=== PATIENT | female | born 1940 | race Caucasian/White ===

== ENCOUNTER 2018-05-14 10:21 | Inpatient (IN) ==
[2018-05-14] MEDS ORDERED: Naloxone 0.4 MG/ML INJ IVP PRN (13:22)
[2018-05-14] MEDS ORDERED: Acetaminophen 325 MG TABLET PO PRN (13:22)
--- NOTE | 2018-05-14 13:28 | Internal Med History&Physical ---
Date of Encounter: 05/14/18 Time of Encounter: 13:10 Internal Medicine - H&P: HPI Chief complaint: shortness of breath, indigestion Admitted From: Hospital to Hospital Transfer History of present illness: Ms. Bueno is a 78 year old female patient with history of chronic myeloid leukemia in remission who is currently on nilotinib, hypertension, indigestion/ reflux esophagitis presented to the ER at [facility] with complaints of shortness of breath that has been going on for the past couple of days. She had been hospitalized one week back at the same facility with chest pain. Cardiac workup was negative. She was discharged on medications for reflux esophagitis. She was hospitalized at [facility] yesterday with Baljinder wong with [facility]. She was placed on Cardizem and IV heparin. She denies any chest pain at this time but she did have some chest discomfort radiating up to her throat previously. She denies any dizziness or lightheadedness. No fever or chills. She does drink a lot of water and she was asked to do this while taking nilotinib. She has no prior history of cardiac disease or atrial fibrillation. She also had a chest x-ray and CT scan that suggested presence of pleural effusion and pericardial effusion. As such she was transferred here for higher level of care. Past Med Surg Social Fam HX - Past Medical History Attestation: Yes The following information was validated with the patient. Source: patient Medical history: cancer (CML in remission), GERD, hypertension, other ( Peripheral vascular disease) - Social History Smoking Status: Never smoker Smokeless Tobacco Status: No Alcohol use: none Drug use: none - Additional Family History Additional family history: Family history reviewed and found to be noncontributory at this time. Internal Medicine - H&P: Meds Aspirin [Adult Low Dose Aspirin EC] 81 mg PO DAILY 01/27/16 [History] Cilostazol [Pletal] 100 mg PO BID 01/27/16 [History] Clopidogrel [Plavix] 75 mg PO DAILY 01/27/16 [History] Cyclobenzaprine [Flexeril] 10 mg PO PRN PRN 01/27/16 [History] Diltiazem HCl [Diltiazem 24Hr Cd] 240 mg PO DAILY 01/27/16 [History] Oxybutynin Chloride [Ditropan Xl] 10 mg PO DAILY 01/27/16 [History] Ramipril [Altace] 5 mg PO DAILY 01/27/16 [History] hydrOXYzine HCl [Hydroxyzine HCl] 25 mg PO DAILY 01/27/16 [History] Loratadine [Claritin] 10 mg PO DAILY #30 tablet 01/30/18 [Rx] Nilotinib HCl [Tasigna] 2 cap PO BID #120 capsule 01/30/18 [Rx] Zolpidem [Ambien] 5 mg PO HS PRN 30 Days #30 tablet 01/30/18 [Rx] Sucralfate [Carafate] 1 gm PO TID #90 tablet 03/18/18 [Rx] 3 Allergy/AdvReac Type Severity Reaction Status Date / Time Phenothiazines Allergy Itching Verified 01/30/18 13:45 promethazine Allergy Itching Verified 01/30/18 13:45 amantadine AdvReac Itching Verified 01/30/18 13:45 All Systems PM: A 10-system review of systems was performed and is negative for pertinent findings except as documented above in the HPI. - Constitutional Constitutional: no chills, no fever(s), no night sweats - EENT Eyes: no change in vision, no discharge, no pain, no photophobia Ears: no ear discharge, no ear pain, no tinnitus Nose, mouth and throat: no dysphagia, no nasal discharge, no neck pain, no sore throat - Cardiovascular Cardiovascular ROS IM: chest pain, dyspnea, dyspnea on exertion - Respiratory Respiratory: no cough, no dyspnea, no wheezing, no excessive phlegm production - Gastrointestinal Gastrointestinal: heartburn, no abdominal pain, no diarrhea, no hematemesis, no hematochezia, no melena, no nausea, no vomiting - Genitourinary Genitourinary: no change in urinary stream, no dysuria, no flank pain, no hematuria - Musculoskeletal Musculoskeletal ROS IM: no numbness, no tingling - Integumentary Integumentary IM: no rash, no unusual bruising - Neurological Neurological ROS: no confusion, no convulsions, no focal weakness, no numbness, no tingling, no tremor(s) - Hematologic/Lymphatic Hematologic/Lymphatic: no easy bruising - Constitutional Vitals: Temp Pulse Resp BP Pulse Ox 98.5 F 113 19 136/93 97 05/14/18 12:55 05/14/18 12:55 05/14/18 12:55 05/14/18 12:55 05/14/18 12:55 General appearance: Present: cooperative, A&O X 3, answers questions appropriately - Neck Neck exam general surgery: Present: supple, trachea midline. Absent: lymphadenopathy - Respiratory Respiratory exam: Present: CTAB. Absent: accessory muscle use, rales, rhonchi, wheezes - Cardiovascular Cardiovascular exam: Present: irregular rhythm, +S1, +S2, tachycardia. Absent: diastolic murmur, gallop, rubs, systolic murmur - GI/Abdominal GI/Abdominal exam: Present: normal bowel sounds, soft, no peritoneal signs. Absent: distended, tenderness - Extremities Exam Extremities exam: Present: warm, radial pulses palpable and symmetrical. Absent : calf tenderness, cyanotic, pedal edema - Neurological Exam Neurological exam: Present: CN II-XII intact, oriented X3, no focal deficits, strengths equal and symetr throughout. Absent: facial droop, speech deficit - Skin Skin exam: Present: dry, intact Internal Med - H&P Results - Labs Labs: WBC 26.2, hemoglobin 11.4, platelets 780, BUN 15, creatinine 0.95, troponins were negative. Urinalysis was also negative. - EKG Data -: EKG Interpreted by Myself - EKG Data EKG comments: 05/14/18 13:30 A. fib with [facility] - Assessment and plan (1) Atrial fibrillation Current Visit: Yes Status: Acute Assessment and plan: Patient presenting with atrial fibrillation with rapid ventricular response. Apparently this is new onset as patient reports no prior history of abnormal rhythm. She does appear to be on Cardizem at home. Patient was started on IV heparin for anticoagulation. Since her heart rate remains uncontrolled, we will treat with IV Cardizem. His heart rate less than 100. Her [id number] score is 4. Qualifiers: Atrial fibrillation type: unspecified Qualified Code(s): I48.91 - Unspecified atrial fibrillation (2) Pericardial effusion Current Visit: Yes Status: Suspected Assessment and plan: Per x-ray and CT imaging. We will get 2-D echocardiogram to assess size of effusion. Consult cardiology based on findings. (3) Reflux esophagitis Current Visit: Yes Status: Acute Assessment and plan: Will continue Carafate and place patient on Protonix. (4) Peripheral vascular disease Current Visit: Yes Status: Acute (5) Chest pain Current Visit: Yes Status: Acute Assessment and plan: Reported history of recent chest pain. Currently does not have any chest pain. Troponins were negative. We will continue to trend troponins. Could be due to reflux esophagitis. Qualifiers: Chest pain type: precordial pain Qualified Code(s): R07.2 - Precordial pain (6) DVT prophylaxis Current Visit: Yes Status: Acute Assessment and plan: On IV heparin (7) CML (chronic myelocytic leukemia) Current Visit: Yes Status: Chronic Assessment and plan: Continue nilotinib. <2 % risk for pericardial effusion and 4% risk for cardiac arrhythmia including atrial fibrillation for this drug. Consider discussing with heme/ Onc prior to discharge. - Time Spent With Patient Total time spent is greater than 50% in coordination of care (as documented) at patient's floor/unit and/or counseling patient:
[2018-05-14] MEDS ORDERED: *HR* Heparin 5,000 UNIT/ML VIAL IVP PRN ×2 (13:41)
[2018-05-14] MEDS ORDERED: *HR* Heparin 5,000 UNIT/ML VIAL IVP ONE (13:41)
[2018-05-14] MEDS ORDERED: Heparin 25,000 UNIT/500 ML D5W 25,000 UNIT/500 ML BAG IVC SCH (13:45)
[2018-05-14] MEDS ORDERED: Fluticasone Propionate Nasal 50 MCG/SPRAY BOTTLE NS PRN (15:57)
[2018-05-14] MEDS: NILOTINIB HCL 150 MG PO SCH (20:08)
[2018-05-15 02:00] LABS: Basophils # 0.1 K/mcL (0.0-0.2); Basophils % 0.4 %; Eosinophils # 0.2 K/mcL (0.0-0.6); Hematocrit 30.2 % (35.3-44.9); Immature Granulocytes % 3.6 % (0-4); Lymphocytes # 2.3 K/mcL (0.6-4.6); Lymphocytes % 10.8 %; Mean Corpuscular HGB Conc 33.1 g/dL (31.6-35.5); Mean Corpuscular Hemoglobin 28.7 pg (28.0-33.3); Mean Corpuscular Volume 86.5 fL (83.0-100.0); Mean Platelet Volume 9.5 fL (9.4-12.4); Monocytes # 2.5 K/mcL (0.0-1.3); Monocytes % 11.7 %; Neutrophils # 15.3 K/mcL (1.6-8.9); Nucleated Red Blood Cells 0.3 /100 WBC (0); Platelet Count 603 K/mcL (140-400); Red Blood Count 3.49 M/mcL (3.82-4.97); Red Cell Distribution Width 16.4 % (11.5-14.5); Segmented Neutrophils % 72.5 %
[2018-05-15 02:10] LABS: BUN/Creatinine Ratio 20 (6-26); Blood Urea Nitrogen 13 mg/dL (8-23); Calcium 8.1 mg/dL (8.6-10.3); Carbon Dioxide 23 mEq/L (23-29); Chloride 101 mEq/L (98-107); Glucose 154 mg/dL (70-105); Osmolality,Calculated 279 (280-300); Potassium 3.3 mEq/L (3.5-5.1); Sodium 133 mEq/L (136-145); eGFR For African Americans > 60 (> 60); eGFR For Non-African Americans > 60 (> 60)
[2018-05-15] MEDS ORDERED: Benzonatate 100 MG CAPSULE PO PRN (02:50)
--- NOTE | 2018-05-15 08:19 | Internal Med Progress Note ---
Date of Encounter: 05/15/18 Time of Encounter: 08:17 - Assessment and plan (1) Atrial fibrillation Current Visit: Yes Status: Acute Assessment and plan: Patient presenting with atrial fibrillation with rapid ventricular response. Apparently this is new onset as patient reports no prior history of abnormal rhythm. She does appear to be on Cardizem at home. Patient was started on IV heparin for anticoagulation. Since her heart rate remains uncontrolled, we will treat with IV Cardizem. His heart rate less than 100. Her [id number] score is 4. Qualifiers: Atrial fibrillation type: unspecified Qualified Code(s): I48.91 - Unspecified atrial fibrillation (2) Pericardial effusion Current Visit: Yes Status: Suspected Assessment and plan: Per x-ray and CT imaging. Echocardiogram results pending. Consult cardiology based on findings. (3) Reflux esophagitis Current Visit: Yes Status: Acute Assessment and plan: Reported history of recent chest pain. Currently does not have any chest pain. Troponins were negative. Could be due to reflux esophagitis. Will continue Carafate and place patient on Protonix. (4) CML (chronic myelocytic leukemia) Current Visit: Yes Status: Chronic Assessment and plan: Continue nilotinib. <2 % risk for pericardial effusion and 4% risk for cardiac arrhythmia including atrial fibrillation for this drug. Consider discussing with heme/ Onc prior to discharge. (5) Peripheral vascular disease Current Visit: Yes Status: Acute Assessment and plan: Continue home medications for this including Plavix, Pletal (6) DVT prophylaxis Current Visit: Yes Status: Acute Assessment and plan: On IV heparin - Time Spent With Patient Total time spent is greater than 50% in coordination of care (as documented) at patient's floor/unit and/or counseling patient: - Subjective Interval history: Patient seen and examined resting comfortably in bed. HR is 92 this AM - Constitutional Vitals: Temp Pulse Resp BP Pulse Ox 98.1 F 92 16 132/71 97 05/15/18 06:59 05/15/18 06:59 05/15/18 06:59 05/15/18 06:59 05/15/18 06:59 General appearance: Present: cooperative, A&O X 3, pleasant, no acute distress, answers questions appropriately - Head Head exam: Present: atraumatic, normocephalic - Eye Eye exam: Present: PERRL, conjuntiva pink, sclera anicteric Pupils: Present: PERRL - ENT ENT exam: Present: mucous membranes moist, normal oropharynx - Neck Neck exam general surgery: Present: supple, trachea midline. Absent: lymphadenopathy - Respiratory Respiratory exam: Present: CTAB. Absent: accessory muscle use, rales, rhonchi, wheezes - Cardiovascular Cardiovascular exam: Present: irregular rhythm, +S1, +S2. Absent: diastolic murmur, gallop, RRR, rubs, systolic murmur - GI/Abdominal GI/Abdominal exam: Present: normal bowel sounds, soft, no peritoneal signs. Absent: distended, tenderness - Extremities Exam Extremities exam: Present: warm, radial pulses palpable and symmetrical. Absent : calf tenderness, cyanotic, pedal edema - Back Exam Back exam: Present: normal inspection. Absent: paraspinal tenderness, tenderness - Neurological Exam Neurological exam: Present: CN II-XII intact, oriented X3, no focal deficits. Absent: pronater drift, facial droop, speech deficit - Psychiatric Psychiatric exam: Present: normal affect, normal mood - Skin Skin exam: Present: dry, intact, warm Internal Medicine: Result - Labs CBC & Chem 7: 05/15/18 01:33 05/15/18 01:33 Labs: Short CBC 05/15/18 Range/Units 01:33 WBC 21.2 H (4.3-11.1) K/mcL Hgb 10.0 L (11.5-15.4) g/dL Hct 30.2 L (35.3-44.9) % Plt Count 603 H (140-400) K/mcL Neutrophils # 15.3 H (1.6-8.9) K/mcL BMP 05/15/18 01:33 Sodium 133 L Potassium 3.3 L Chloride 101 Carbon Dioxide 23 BUN 13 Creatinine 0.66 Glucose 154 H Calcium 8.1 L - Pulse Oximetry Interpretation Digit-Finger Pulse Oximetry Readin (On RA) Consult Discharge Plan - Plan Referrals: Del Caceres DO [Primary Care Provider] -
[2018-05-15] MEDS ORDERED: Potassium Chloride Elixir 20 MEQ/15 ML UDC PO ONE (08:22)
[2018-05-15] MEDS ORDERED: Diltiazem CD (24hr) 240 MG CAPSULE PO SCH (09:00)
[2018-05-15] MEDS ORDERED: Loratadine 10 MG TABLET PO SCH (09:00)
[2018-05-15] MEDS ORDERED: Aspirin Enteric Coated 81 MG Tablet PO SCH (09:00)
[2018-05-15] MEDS ORDERED: Lisinopril 20 MG TABLET PO SCH (09:00)
[2018-05-15 11:06] VITALS: BP 128/76
[2018-05-15] MEDS: NILOTINIB HCL 150 MG PO SCH (11:11)
[2018-05-15] MEDS ORDERED: Apixaban 5 MG TABLET PO SCH (13:00)
--- NOTE | 2018-05-15 13:18 | Discharge Summary ---
<Jesus Stahl - Last Filed: 05/15/18 14:37> - NOTES TO OUTPATIENT PROVIDER Notes to Outpatient Provider: Patient with small to moderate pericardial effusion. Repeat echo in 1 week and follow up with cardiology. Patient was started on Eliquis for A-fib. Start Metoprolol and continue Cardizem PO. Stop Plavix and Pletal. Follow up with PCP, cardiology and vascular surgery. Date of Encounter: 05/15/18 Time of Encounter: 13:14 - Discharge Diagnosis (1) Atrial fibrillation Priority: Primary Status: Acute Assessment and Plan: Patient presenting with atrial fibrillation with rapid ventricular response. Apparently this is new onset as patient reports no prior history of abnormal rhythm. She is on Cardizem at home. Patient was started on IV heparin for anticoagulation. Echo revealed small to moderate pericardial effusion. Weaned off Cardizem drip. Heart rate remains uncontrolled, we will start Metprolol and continue Cardizem PO. Her heart rate less than 100. Her [id number] score is 4. Continue Aspirin and start Eliquis Qualifiers: Atrial fibrillation type: unspecified Qualified Code(s): I48.91 - Unspecified atrial fibrillation (2) Pericardial effusion Priority: Primary Status: Suspected Assessment and Plan: Per x-ray and CT imaging. Echocardiogram revealed small to moderate pericardial effusion, LVEF 60%, intermediate diastolic dysfunction. Case discussed with Gas Station Clerk, Dr. Bower, recommended outpatient cardiology follow up and repeat echo in 1 week. Will trial short course of Lasix. (3) Reflux esophagitis Priority: Secondary Status: Acute Assessment and Plan: Reported history of recent chest pain. Currently does not have any chest pain. Troponins were negative. Could be due to reflux esophagitis. Stopped PPI, Continue Zantac and Tums prn. Outpatient follow up. (4) CML (chronic myelocytic leukemia) Priority: Secondary Status: Chronic Assessment and Plan: Continue nilotinib. <2 % risk for pericardial effusion and 4% risk for cardiac arrhythmia including atrial fibrillation for this drug. (5) DVT prophylaxis Priority: Secondary Status: Acute Assessment and Plan: Continue Aspirin and Eliquis (6) Peripheral vascular disease Priority: Secondary Status: Acute Assessment and Plan: Case discussed with Vascular Surgeon, Dr. Luther. Discontinue home medications for this including Plavix, Pletal. Continue Aspirin and Eliquis Hospital course: Ms. Bueno is a 78 year old female patient with history of chronic myeloid leukemia in remission who is currently on nilotinib, hypertension, indigestion/ reflux esophagitis presented to the ER at [facility] with complaints of shortness of breath that has been going on for the past couple of days. She had been hospitalized one week back at the same facility with chest pain. Cardiac workup was negative. She was discharged on medications for reflux esophagitis. She was hospitalized at [facility] yesterday with Baljinder wong with [facility]. She was placed on Cardizem and IV heparin. She denies any chest pain at this time but she did have some chest discomfort radiating up to her throat previously. She denies any dizziness or lightheadedness. No fever or chills. She does drink a lot of water and she was asked to do this while taking nilotinib. She has no prior history of cardiac disease or atrial fibrillation. She also had a chest x-ray and CT scan that suggested presence of pleural effusion and pericardial effusion. As such she was transferred here for higher level of care. Apparently this is new onset as patient reports no prior history of abnormal rhythm. She is on Cardizem at home. Patient was started on IV heparin for anticoagulation. Echocardiogram revealed small to moderate pericardial effusion, LVEF 60%, intermediate diastolic dysfunction. Recommend outpatient cardiology follow up. Her heart rate less than 100. Weaned off Cardizem drip. Heart rate remains controlled, we will start Metoprolol and continue Cardizem PO. Her [id number] score is 4. Case discussed with Vascular Surgeon, Dr. Luther. Discontinue home medications for this including Plavix, Pletal. Continue Aspirin and start Eliquis. Case discussed with Gas Station Clerk, Dr. Bower, recommended outpatient cardiology follow up and repeat echo in 1 week Discharge discussed with: patient, family - Time Spent with Patient Total time spent providing and/or coordinating discharge services: - Discharge Medications Prescriptions: Calcium Carbonate [Tums] 1,000 mg PO Q4HR PRN #60 tab.chew PRN Reason: Reflux Apixaban [Eliquis] 5 mg PO BID #60 tablet Furosemide [Lasix] 40 mg PO DAILY #14 tab Metoprolol [Lopressor] 25 mg PO BID #60 tablet Ranitidine HCl [Zantac 75] 75 mg PO DAILY #30 tablet Home Medications: Cyclobenzaprine [Flexeril] 10 mg PO DAILY 01/27/16 [History] Diltiazem HCl [Diltiazem 24Hr Cd] 240 mg PO DAILY 01/27/16 [History] Loratadine [Claritin] 10 mg PO DAILY #30 tablet 01/30/18 [Rx] Nilotinib HCl [Tasigna] 2 cap PO BID #120 capsule 01/30/18 [Rx] Acetaminophen [Tylenol] 500 mg PO Q6HR PRN 05/14/18 [History] Aspirin Enteric Coated [Aspirin EC] 81 mg PO DAILY 05/14/18 [History] Diclofenac Sodium [Voltaren] 50 mg PO BID PRN 05/14/18 [History] Docusate [Colace] 100 mg PO DAILY 05/14/18 [History] Doxycycline Hyclate 100 mg PO BID 05/14/18 [History] Fluticasone Propionate Nasal [Flonase] 1 spray NS DAILY PRN 05/14/18 [History] MethylPREDNISolone [MethylPREDNISolone Dose Pack] 4 mg PO AD 05/14/18 [History] Pravastatin Sodium [Pravachol] 40 mg PO HS 05/14/18 [History] Ramipril [Altace] 5 mg PO DAILY 05/14/18 [History] Ranitidine HCl [Heartburn Relief] 150 mg PO DAILY 05/14/18 [History] Apixaban [Eliquis] 5 mg PO BID #60 tablet 05/15/18 [Rx] Calcium Carbonate [Tums] 1,000 mg PO Q4HR PRN #60 tab.chew 05/15/18 [Rx] Furosemide [Lasix] 40 mg PO DAILY #14 tab 05/15/18 [Rx] Metoprolol [Lopressor] 25 mg PO BID #60 tablet 05/15/18 [Rx] Ranitidine HCl [Zantac 75] 75 mg PO DAILY #30 tablet 05/15/18 [Rx] Allergies/Adverse Reactions: 3 Allergy/AdvReac Type Severity Reaction Status Date / Time Phenothiazines Allergy Itching Verified 01/30/18 13:45 promethazine Allergy Itching Verified 01/30/18 13:45 amantadine AdvReac Itching Verified 01/30/18 13:45 Date of admission: 05/14/18 12:47 Primary care physician: Del Caceres, Discharging clinician: Jesus Stahl Anticipated date of discharge: 05/15/18 - Constitutional Vitals: Temp Pulse Resp BP Pulse Ox 98.4 F 84 16 128/76 97 05/15/18 11:05 05/15/18 11:05 05/15/18 11:05 05/15/18 11:05 05/15/18 11:05 General appearance: Present: cooperative, A&O X 3, pleasant, no acute distress, answers questions appropriately - Head Head exam: Present: atraumatic, normocephalic - Eye Eye exam: Present: PERRL, conjuntiva pink, sclera anicteric Pupils: Present: PERRL - ENT ENT exam: Present: mucous membranes moist, normal oropharynx - Neck Neck exam general surgery: Present: supple, trachea midline. Absent: lymphadenopathy - Respiratory Respiratory exam: Present: CTAB. Absent: accessory muscle use, rales, rhonchi, wheezes - Cardiovascular Cardiovascular exam: Present: irregular rhythm, +S1, +S2. Absent: diastolic murmur, gallop, RRR, rubs, systolic murmur - GI/Abdominal GI/Abdominal exam: Present: normal bowel sounds, soft, no peritoneal signs. Absent: distended, tenderness - Extremities Exam Extremities exam: Present: warm, radial pulses palpable and symmetrical. Absent : calf tenderness, cyanotic, pedal edema Additional comments: walks with walker - Back Exam Back exam: Present: normal inspection. Absent: paraspinal tenderness, tenderness - Neurological Exam Neurological exam: Present: CN II-XII intact, oriented X3, no focal deficits. Absent: pronater drift, facial droop, speech deficit - Psychiatric Psychiatric exam: Present: normal affect, normal mood - Skin Skin exam: Present: dry, intact, warm - Patient Status Disposition: Home, Self-Care Condition: Good Functional capacity at discharge: uses cane/walker Overall status at discharge: patient is back to baseline - Ambulatory Orders Ambulatory Orders: EV echocardiogram Time Frame: 1 Week, Location: [facility] - Discharge Instructions Instructions: Metoprolol (By mouth), Furosemide (By mouth), Ranitidine (By mouth), Antacid, Calcium and Magnesium (By mouth), Apixaban (By mouth), Atrial Fibrillation (DC), Chest Pain (DC), Peripheral Vascular Disorders (DC), Chronic Myeloid Leukemia (DC), Chronic Myeloid Leukemia, [employer] (GEN) Follow Up With: Del Caceres, DO [Primary Care Provider] - - Diet and Activity Activity: increase activity as tolerated, resume usual activities as tolerated Diet: regular diet <Baldemar Brown - Last Filed: 05/15/18 16:46> Date of Encounter: 05/15/18 - Discharge Diagnosis (1) DVT prophylaxis Status: Acute (2) CML (chronic myelocytic leukemia) Status: Chronic (3) Atrial fibrillation Status: Acute Qualifiers: Atrial fibrillation type: unspecified Qualified Code(s): I48.91 - Unspecified atrial fibrillation (4) Pericardial effusion Status: Suspected (5) Reflux esophagitis Status: Acute (6) Peripheral vascular disease Status: Acute Hospital course: Ms. Bueno is a 78 year old female - Time Spent with Patient Total time spent providing and/or coordinating discharge services: Date of admission: 05/14/18 12:47 Primary care physician: Del Caceres, - Constitutional Vitals: Temp Pulse Resp BP Pulse Ox 98.4 F 84 16 128/76 97 05/15/18 11:05 05/15/18 11:05 05/15/18 11:05 05/15/18 11:05 05/15/18 11:05 - Attending Attestation Independent interview and examine this patient. I agreed with the findings, assessment, and plan of Dr. Stahl, internal medicine resident. I was present during this evaluation and discussion with the patient and her family. Old with a combination of Cardizem and metoprolol. She was started on Eliquis for stroke prevention. Patient otherwise remained hematologically stable. She was counseled on blood thinners and are associated risks of bleeding. We did stop her Plavix and Pletal but continue her aspirin after discussion with vascular surgery. The significance of her pericardial effusion is unclear. Case was discussed with cardiology. She will follow up with them, as well as have a repeat echo in one week. She otherwise is doing well and deemed stable for discharge. 36 minutes spent on discharge and coordination of care. Patient was originally admitted with the intention of having at least a 2 night stay, however she improved rapidly with our therapy (much quicker than expected) , achieving excellent rate control and was asymptomatic on hospital day #1.
== END 2018-05-15 15:30 | disposition home or self-care (01) | DRG 309 ==
LOC: 2NENU 12:47
PROVIDERS: ADMIT Internal Medicine; ATTEND Internal Medicine

== ENCOUNTER 2019-07-14 23:12 | Inpatient (IN) ==
--- NOTE | 2019-07-15 02:26 | Internal Med History&Physical ---
<Barbara Gibbs - Last Filed: 07/15/19 02:51> Date of Encounter: 07/15/19 Time of Encounter: 02:26 Internal Medicine - H&P: HPI Chief complaint: Abdominal pain Admitted From: Hospital to Hospital Transfer Plans for Post Hospital Care: Home History of present illness: Ms. Bueno is a 79 year old female with past medical history of CML, atrial fibrillation on anticoagulation, CAD who presented to [facility] as a transfer from [facility] for surgical evaluation due to CT abdomen findings concerning for cecal volvulus. The patient initially presented to the ED complaining of abdominal pain that has worsened for approximately 4 days that started on Sunday. She has had severe nausea and vomiting. She chronically has constipation and has had intermittent abdominal pain for the past few months. She has been taking laxatives. She went to her PCP on Sunday whom prescribed her Linzess for which she took for 3 days. Additionally she has had constipation, bloating, belching. Her last bowel movement was Sunday morning which was loose and runny due to her taking Linzess. She denied fever, chills, shortness of breath, flatulence. She has had colonoscopies in the past which were all normal. She has a family history of father having colon cancer diagnosed in his 50s. She denied smoking, alcohol, drug use. She is the full code. At [facility] initial labs were: WBC 20.5, lactic acid 1.7, hemoglobin 13.3, platelets 494, AST 13, ALT 31, alkaline phosphatase 90, total bilirubin 0.5, amylase 28. - CT abdomen/pelvis demonstrated findings ever concerning for cecal volvulus. There is no evidence of ischemic bowel. The patient was admitted to the ICU and the general surgeon Dr. Jacobsen evaluated the patient and recommended exploratory laparotomy. After review of the CT abdomen/pelvis images it is unclear whether or not the volvulus is cecal or sigmoid in nature. The patient's daughter was present at bedside and agreed. Past Med Surg Social Fam HX - Past Medical History Attestation: Yes The following information was validated with the patient. Source: patient Medical history: atrial fibrillation, cancer (CML in remission), GERD, hypertension, other (Peripheral vascular disease) Additional medical history: CML, PVD Psychiatric history: no psych history - Past Surgical History Surgical History: cholecystectomy Additional surgical history: back surgery, stent in leg - Social History Smoking Status: Never smoker Smokeless Tobacco Status: No Alcohol use: none Drug use: none - Family History Mother Living Status: Hx Family Endocrine Disorder: Yes (DM) Hx Family Neuromuscular Disorders: Yes (CVA) Father Living Status: Hx Family Cancer: Yes Internal Medicine - H&P: Meds Diltiazem HCl [Diltiazem 24Hr Cd] 240 mg PO DAILY 01/27/16 [History] Acetaminophen [Tylenol] 500 mg PO Q6HR PRN 05/14/18 [History] Pravastatin Sodium [Pravachol] 40 mg PO HS 05/14/18 [History] Metoprolol [Lopressor] 25 mg PO BID 06/03/18 [History] Rivaroxaban [Xarelto] 20 mg PO DAILY 06/03/18 [History] Ferrous Sulfate [Iron] 325 mg PO DAILY #30 tablet 06/13/18 [Rx] Cilostazol [Pletal] 100 mg PO BID 01/29/19 [History] Cetirizine HCl [Zyrtec] 10 mg PO 07/15/19 [History] Cyclobenzaprine [Flexeril] 10 mg PO TID 07/15/19 [History] traZODone [TraZODone] 100 mg PO HS 07/15/19 [History] Allergy/AdvReac Type Severity Reaction Status Date / Time Phenothiazines Allergy Itching Verified 08/14/18 15:22 promethazine Allergy Itching Verified 08/14/18 15:22 amantadine AdvReac Itching Verified 08/14/18 15:22 All Systems PM: A 10-system review of systems was performed and is negative for pertinent findings except as documented above in the HPI. - Constitutional Constitutional: no chills, no fever(s) - EENT Eyes: no change in vision - Cardiovascular Cardiovascular ROS IM: no chest pain, no edema - Respiratory Respiratory: no cough, no dyspnea - Gastrointestinal Gastrointestinal: abdominal pain, belching, bloating, change in bowel habits, constipation, nausea - Genitourinary Genitourinary: no dysuria - Musculoskeletal Musculoskeletal ROS IM: no muscle weakness, no myalgias - Integumentary Integumentary IM: no erythema, no rash - Neurological Neurological ROS: no dizziness, no headache(s) - Endocrine Endocrine IM: no fatigue, no flushing - Constitutional Exam: Gen.: Vitals noted. No acute distress. AAOx3 HEENT: oropharynx clear, Normocephalic, atraumatic Cardiac: RRR, no murmur, +S1/S2 Pulmonary: CTA bilaterally, no wheezes, rales or rhonchi, equal chest expansion Abdomen: soft, distended, nontender, no bowel sounds, no guarding MSK: ROM intact, no joint swelling noted Extremities: no BLE edema, nontender calf, no cyanosis or clubbing Neuro: A&Ox3, moves all extremities, no focal deficits Psych: Appropriate mood and behavior - Assessment and Plan (1) Atrial fibrillation Current Visit: No Status: Chronic Assessment and plan: Patient is known history of atrial fibrillation for which she is on anticoagulation with Xarelto and rate controlled with diltiazem and metoprolol. -Heart rate is controlled -holding Xarelto and metoprolol is patient is going to OR. May be restarted later -will continue diltiazem after patient returns from the OR Qualifiers: Atrial fibrillation type: paroxysmal Qualified Code(s): I48.0 - Paroxysmal atrial fibrillation (2) CML (chronic myelocytic leukemia) Current Visit: No Status: Chronic Assessment and plan: She has known history of CML for which she was completed treatment (3) Peripheral vascular disease Current Visit: No Status: Chronic Assessment and plan: Patient is known history of peripheral vascular disease for which she has a stent. She takes cilostazol and pravastatin. -Will hold cilostazol as patient is going to OR (4) DVT prophylaxis Current Visit: No Status: Acute Assessment and plan: EPCD (5) Volvulus of colon Current Visit: Yes Status: Acute Assessment and plan: Volvulus of the colon - After review of the CT abdomen/pelvis images it is unclear whether or not the volvulus is cecal or sigmoid in nature. It is most likely cecal. - Patient has had abdominal pain and constipation for a few months now which has worsened over the past 4 days with severe nausea and vomiting. She has been treating with laxatives. Last bowel movement was on Sunday. She denies flatus. - Afebrile, hemodynamically stable - WBC 20.5 - lactic acid 1.7 - CT abdomen/pelvis demonstrated findings ever concerning for cecal volvulus. There is no evidence of ischemic bowel. - On abdominal examination the patient is distended, nontender, no guarding, no bowel sounds. plan: - The patient was admitted to the ICU and the general surgeon Dr. Jacobsen evaluated the patient and recommended exploratory laparotomy this morning - continue sublingual oxycodone PRN pain - ordered cefoxitin 2g q8h per Dr. Jacobsen request - ordered type and screen, and 2 units PRBC - continue NG tube - NPO - continue serial abdominal exam - Time Spent With Patient Total time spent is greater than 50% in coordination of care (as documented) at patient's floor/unit and/or counseling patient: <Rizwan Paul - Last Filed: 07/15/19 07:03> Date of Encounter: 07/15/19 Internal Medicine - H&P: HPI History of present illness: Ms. Bueno is a 79 year old female All Systems PM: A 10-system review of systems was performed and is negative for pertinent findings except as documented above in the HPI. - Constitutional Vitals: Temp Pulse Resp BP Pulse Ox 98.9 F 85 20 184/89 100 07/15/19 02:00 07/15/19 06:00 07/15/19 06:00 07/15/19 06:00 07/15/19 06:00 Internal Med - H&P Results - Labs CBC & Chem 7: 07/15/19 03:17 07/15/19 03:17 Labs: Short CBC 07/15/19 Range/Units 03:17 WBC 16.9 H (4.3-11.1) K/mcL Hgb 11.8 (11.5-15.4) g/dL Hct 35.9 (35.3-44.9) % Plt Count 467 H (140-400) K/mcL Neutrophils # 12.7 H (1.6-8.9) K/mcL BMP 07/15/19 03:17 Sodium 140 Potassium 3.2 L Chloride 102 Carbon Dioxide 26 BUN 7 L Creatinine 0.71 Glucose 114 H Calcium 8.5 L - Assessment and Plan (1) DVT prophylaxis Current Visit: No Status: Acute (2) CML (chronic myelocytic leukemia) Current Visit: No Status: Chronic (3) Atrial fibrillation Current Visit: No Status: Chronic Qualifiers: Atrial fibrillation type: paroxysmal Qualified Code(s): I48.0 - Paroxysmal atrial fibrillation (4) Peripheral vascular disease Current Visit: No Status: Chronic (5) Volvulus of colon Current Visit: Yes Status: Acute - Time Spent With Patient Total time spent is greater than 50% in coordination of care (as documented) at patient's floor/unit and/or counseling patient: - Attending Attestation I saw and evaluated the patient. I reviewed the residents note, performed my own physical examination and agree with findings and plan as documented in the residents note. Patient seen and examined on 07/15/19. Patient presented with abdominal pain and distension, found to have cecal volvulus. Patient was taken to the OR for emergent abdominal surgery with Dr. Jacobsen. Appreciate help. Patient admitted to ICU, will continue ICU cares post-op.
[2019-07-15] MEDS ORDERED: Naloxone 0.4 MG/ML INJ IVP PRN (02:27)
[2019-07-15] MEDS ORDERED: Ondansetron 4 MG/2 ML VIAL IVP PRN (02:30)
--- NOTE | 2019-07-15 02:32 | AcuteCare Surgery Consult Note ---
Date of Encounter: 07/15/19 Time of Encounter: 20:00 Assessment and Plan (1) Volvulus of colon Current Visit: Yes Status: Acute The patient has severe volvulus causing obstruction. I have recommended exploratory laparotomy with resection or decompression volvulus. She understands there is risk of ileostomy or colostomy. History of Present Illness Consult date: 07/15/19 Reason for consult: other (Nausea and vomiting) History of present illness: The patient is a 79-year-old female treated for chronic myelogenous leukemia with recent admission to the hospital with what appeared to be congestive heart failure and atrial fibrillation. She has been stable at home but has been experiencing increasing problems with bowel movements for many months. She nilson es a chronic laxative. She presented to the emergency department earlier this evening with severe nausea and vomiting. A CAT scan demonstrated a likely volvulus. The patient was transferred to [place] for further evaluation and possible surgical care. I personally reviewed the CAT scan images of the abdomen. 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 I cannot identify whether this is cecal or sigmoid in nature. I favor cecal volvulus. I shared this information with the patient. The abdomen is soft and nontender there were no peritoneal signs and no rebound tenderness. She is progressively distended consistent with closed loop obstruction. I recommended exploratory laparotomy and resection of the volvulus. We discussed the possibility of colostomy or ileostomy. Past Med Surg Social Fam HX - Past Medical History Medical history: cancer (CML in remission), GERD, hypertension, other (Peripheral vascular disease) Additional medical history: CML, PVD Psychiatric history: no psych history - Past Surgical History Surgical History: cholecystectomy Additional surgical history: back surgery, stent in leg - Social History Smoking Status: Never smoker Smokeless Tobacco Status: No Alcohol use: none Drug use: none - Family History Mother Living Status: Hx Family Endocrine Disorder: Yes (DM) Hx Family Neuromuscular Disorders: Yes (CVA) Father Living Status: Hx Family Cancer: Yes Medications and Allergies Diltiazem HCl [Diltiazem 24Hr Cd] 240 mg PO DAILY 01/27/16 [History] Acetaminophen [Tylenol] 500 mg PO Q6HR PRN 05/14/18 [History] Pravastatin Sodium [Pravachol] 40 mg PO HS 05/14/18 [History] Metoprolol [Lopressor] 25 mg PO BID 06/03/18 [History] Rivaroxaban [Xarelto] 20 mg PO DAILY 06/03/18 [History] Ferrous Sulfate [Iron] 325 mg PO DAILY #30 tablet 06/13/18 [Rx] Cilostazol [Pletal] 100 mg PO BID 01/29/19 [History] Cetirizine HCl [Zyrtec] 10 mg PO 07/15/19 [History] Cyclobenzaprine [Flexeril] 10 mg PO TID 07/15/19 [History] traZODone [TraZODone] 100 mg PO HS 07/15/19 [History] Allergy/AdvReac Type Severity Reaction Status Date / Time Phenothiazines Allergy Itching Verified 08/14/18 15:22 promethazine Allergy Itching Verified 08/14/18 15:22 amantadine AdvReac Itching Verified 08/14/18 15:22 Review of Systems All systems PM: The remainder of the systems were reviewed and are negative General Surgery Exam - General physical appearance well developed, well nourished, moderate distress - Neck no masses, no bruits, trachea midline, no lymphadectomy, no venous distension - Respiratory normal expansion, normal respiratory effort, clear to auscultation - Cardiovascular Cardiovascular exam: Present: RRR, no murmurs/rubs/gallops - Abdomen Abdomen general surgery: Present: distended (No bowel sounds. She is distended and tympanic. No guarding or rebound) - Integumentary Integumentary general surgery: Present: warm and dry, no abnormal pigmentation - Neurologic Present: CN 2-12 grossly intact, normal coordination, normal sensation - Psychiatric Psychiatric general surgery: Present: appropriate, oriented to person, oriented to place, oriented to time, speech is normal, memory intact Results - Labs All other labs normal. - Imaging CT scan - abdomen: image reviewed (I personally reviewed the CAT scan of the abdomen. Findings are consistent with large bowel volvulus. I favor cecal volvulus from the images, however, sigmoid volvulus is a possibility) Consult Discharge Plan - Plan Referrals: NONE,PCP [Primary Care Provider] -
--- NOTE | 2019-07-15 02:55 | Anesthesia Evaluation PreOp ---
Date of Encounter: 07/15/19 Time of Encounter: 03:00 - Past History Planned Operation: Exploratory Laparotomy/Repair Cecal Volvulus Cardiac History: HTN, Hyperlipidemia, Arrhythmia (AFib on cardizem), Other (PVD has stent LE and Xarelto) Pulmonary History: Denies Any Significant HX CARBON DIOXIDE OPERATOR History: Denies Any Significant HX Other Medical History: GERD, Other (CML on remission) Anesthesia History: No Prior Anesthetic Complications Alcohol Use: none Drug use: none Medications and Allergies Diltiazem HCl [Diltiazem 24Hr Cd] 240 mg PO DAILY 01/27/16 [History] Acetaminophen [Tylenol] 500 mg PO Q6HR PRN 05/14/18 [History] Pravastatin Sodium [Pravachol] 40 mg PO HS 05/14/18 [History] Metoprolol [Lopressor] 25 mg PO BID 06/03/18 [History] Rivaroxaban [Xarelto] 20 mg PO DAILY 06/03/18 [History] Ferrous Sulfate [Iron] 325 mg PO DAILY #30 tablet 06/13/18 [Rx] Cilostazol [Pletal] 100 mg PO BID 01/29/19 [History] Cetirizine HCl [Zyrtec] 10 mg PO 07/15/19 [History] Cyclobenzaprine [Flexeril] 10 mg PO TID 07/15/19 [History] traZODone [TraZODone] 100 mg PO HS 07/15/19 [History] Allergy/AdvReac Type Severity Reaction Status Date / Time Phenothiazines Allergy Itching Verified 08/14/18 15:22 promethazine Allergy Itching Verified 08/14/18 15:22 amantadine AdvReac Itching Verified 08/14/18 15:22 - Meds/Allergy Pre-op Review Medications Reviewed: Yes Allergies Reviewed: Yes Beta Blockers on Current Med List: No Anesthesia Results - Labs Laboratory Tests 01/29/19 01/29/19 15:32 15:32 Hgb 12.5 Hct 37.5 Plt Count 428 H Sodium 138 Potassium 3.3 L BUN 10 Creatinine 0.85 AST 9 L ALT 8 Alkaline Phosphatase 73 Albumin 4.4 - Imaging EKG: report reviewed (SR) Additional studies: ECHO EF 60%, no valvular dysfunction Anesthesia Exam Vital Signs/O2 Sat/Glucose, Most Current Temp Pulse Resp BP Pulse Ox 07/15/19 02:00 98.9 F 95 20 169/85 94 Height: 5'4 Weight: 149 lbs NPO (# of Hours): MN Pain Scale: 0 - HEENT Pupil (Motor): Pupils equal, EOMI Mallampati: II Oral Opening: Greater than 3 - CARBON DIOXIDE OPERATOR LOC: Oriented CARBON DIOXIDE OPERATOR Motor: Normal RUE, Normal LUE, Normal RLE, Normal LLE, Normal Face CARBON DIOXIDE OPERATOR Sensory: Normal: RUE, LUE, RLE, LLE, Face - Cardiac Rhythm: Regular Murmur: None JVD: No Carotid Bruit: No - Pulmonary Breath Sounds: bilateral Clear Respiratory Effort: Symmetrical Anesthesia Assess/Plan ASA Score: 3 Level of consciousness: Cooperative, Oriented Anesthetic Plan: General Regional Nerve Block Plan: Other (TAP Block) Autologous Blood: No Monitoring Plan: Standard Monitors Recovery Plan: ICU (Discussed GA, possible TAP Block, agrees to proceed)
[2019-07-15] MEDS ORDERED: CefOXitin 1,000 MG VIAL ONE (03:03)
[2019-07-15] MEDS ORDERED: Acetaminophen IV 1,000 MG/100 ML INFUS..BTL ONE (03:12)
[2019-07-15] MEDS ORDERED: Famotidine 20 MG/2 ML VIAL ONE (03:13)
[2019-07-15] MEDS ORDERED: NiCARdipine 2.5 MG/10 ML Syringe IVPB ONE (03:13)
[2019-07-15] MEDS ORDERED: CefOXitin 2,000 MG VIAL ONE (03:16)
[2019-07-15] MEDS ORDERED: *HR* FentaNYL (PF) 100 MCG/2 ML VIAL ONE (03:16)
[2019-07-15] MEDS ORDERED: *HR* Propofol 200 MG/20 ML VIAL IVP ONE (03:16)
[2019-07-15] MEDS ORDERED: *HR* Rocuronium Bromide 50 MG/5 ML VIAL ONE (03:17)
[2019-07-15] MEDS ORDERED: Lidocaine -MPF 2% 2 ML VIAL ONE (03:17)
[2019-07-15] MEDS ORDERED: Ondansetron 4 MG/2 ML VIAL ONE ×2 (03:17→05:25)
[2019-07-15 03:30] LABS: White Blood Count 16.9 K/mcL (4.3-11.1)
[2019-07-15 03:31] LABS: Basophils % 0.2 %; Eosinophils # 0.1 K/mcL (0.0-0.6); Eosinophils % 0.3 %; Hematocrit 35.9 % (35.3-44.9); Hemoglobin 11.8 g/dL (11.5-15.4); Immature Granulocytes % 0.8 % (0-4); Lymphocytes # 2.4 K/mcL (0.6-4.6); Lymphocytes % 14.2 %; Mean Corpuscular HGB Conc 32.9 g/dL (31.6-35.5); Mean Corpuscular Hemoglobin 30.5 pg (28.0-33.3); Mean Corpuscular Volume 92.8 fL (83.0-100.0); Mean Platelet Volume 9.5 fL (9.4-12.4); Monocytes # 1.6 K/mcL (0.0-1.3); Monocytes % 9.5 %; Neutrophils # 12.7 K/mcL (1.6-8.9); Platelet Count 467 K/mcL (140-400); Red Blood Count 3.87 M/mcL (3.82-4.97); Red Cell Distribution Width 17.2 % (11.5-14.5)
[2019-07-15] MEDS ORDERED: *HR* PHENYLEPHRINE 1,000 MCG/10 ML SYRINGE IVP ONE (03:43)
[2019-07-15 03:56] LABS: BUN/Creatinine Ratio 10 (6-26); Blood Urea Nitrogen 7 mg/dL (8-23); Calcium 8.5 mg/dL (8.6-10.3); Carbon Dioxide 26 mEq/L (23-29); Chloride 102 mEq/L (98-107); Glucose 114 mg/dL (70-105); Osmolality,Calculated 289 (280-300); Potassium 3.2 mEq/L (3.5-5.1); Sodium 140 mEq/L (136-145); eGFR For African Americans > 60 (> 60); eGFR For Non-African Americans > 60 (> 60)
[2019-07-15] MEDS ORDERED: Dexamethasone 4 MG/ML VIAL ONE (04:07)
--- NOTE | 2019-07-15 05:06 | Operative Note ---
Date of procedure: 07/15/19 Pre-op diagnosis: Volvulus of the colon Post-op diagnosis: other (Cecal volvulus with obstruction) Procedure: Right hemicolectomy Anesthesia: BERNARD Surgeon: Ross Jacobsen Was there an pharmacy technician assistant present: No Estimated blood loss (cc): 25 Specimen: Right hemicolectomy Condition: stable Disposition: ICU Procedure in Detail: After informed consent the patient was taken major operative suite placed in supine position and given adequate general endotracheal anesthesia. The abdomen was prepped and draped in sterile fashion utilizing ChloraPrep and standard draping techniques. Timeout was taken and patient was identified. Made a vertical midline incision and immediately encountered a massively dilated portion of bowel. I quickly identified the bowel as cecum and right colon. The patient had what appeared to be lads bands crossing just below the hepatic flexure and a completely mobile cecum. There were adhesions to the distal small bowel down to the pelvis that acted as a point of rotation. The cecum was in the shape of an [place]. I divided the distal ileum with CHIVO. The mesentery to the right colon was divided between clamps and hemostatic ligatures. I lysed the adhesions that were essentially lads bands. This gave full mobility of the hepatic flexure and at this level as were would place the anastomosis. The colon was divided at this level with CHIVO. The specimen was passed off the field. There was no spillage. Using a standard dirty technique, callus re-used to isolate the distal small bowel and segment of the colon for anastomosis. I opened the 2 ends the bowel and used CHIVO to create an antimesenteric anastomosis. The resulting enterotomy was closed with a TA 60. There was no spillage. I circumferentially reinforced with seromuscular 3-0 silk stitches in this gave an excellent technical result the anastomosis. I closed the mesenteric opening with interrupted [id number] 2-0 silk. The abdomen was irrigated with copious amounts of antibiotic containing solution. The midline was closed with looped 0 PDS. Skin was closed with interrupted 2-0 Vicryl stitches and skin clips. The patient tolerated the procedure very well
[2019-07-15] MEDS ORDERED: 0.9 % Sodium Chloride 1,000 ML ONE (05:25)
[2019-07-15] MEDS ORDERED: *HR* Heparin 5,000 UNIT/ML VIAL ONE (05:25)
--- NOTE | 2019-07-15 05:35 | Anesthesia Evaluation Post Op ---
Date of Encounter: 07/15/19 Time of Encounter: 05:30 - Vital Signs Vital Signs: Vital Signs/O2 Sat/Glucose, Most Current Temp Pulse Resp BP Pulse Ox 07/15/19 05:00 87 20 174/86 100 07/15/19 03:00 84 18 144/92 95 07/15/19 02:00 98.9 F 95 20 169/85 94 - Lungs Lungs: Clear Ascult./Percussion - Airway Airway: Non-obstructed - Cardiovascular Regular Rate - Mental Status Mental Status: Asleep with brisk response to light stimulation - Pain Pain Scale: 0 - Nausea Vomiting Nausea Vomiting: Not Present - Hydration Hydration: NPO - Discharge PostOp Status: Transfer Patient to floor (To ICU...did not perform TAP Block due to Xarelto taken yesterday)
[2019-07-15] MEDS: *HR* Heparin 5,000 UNIT/ML VIAL SQ SCH ×2 (05:39→18:33)
[2019-07-15] MEDS: 0.9 % Sodium Chloride 1,000 ML IVC SCH ×2 (05:39→18:25)
[2019-07-15] MEDS: Ondansetron 4 MG/2 ML VIAL IVP PRN ×2 (05:40→14:52)
[2019-07-15] MEDS ORDERED: *HR* Heparin 5,000 UNIT/ML VIAL SQ SCH (06:00)
--- NOTE | 2019-07-15 07:53 | Event Note ---
Date of Encounter: 07/15/19 Time of Encounter: 07:51 Patient seen and examined this morning at bedside. Admitted overnight for cecal volvulus. Status post right hemicolectomy. Currently has an NGT. Okay to transfer to telemetry floor by afternoon if hemodynamically stable. Resume metoprolol IV for rate control. If difficult to control will consider cardizem drip. Xarelto held given surgery. We will resume when okay with surgery in the next few days. Currently nothing by mouth until bowel function resumes. We will give 40 meq potassium IV. Leukocytosis and thrombocytosis likely reactive. Monitor for now.
[2019-07-15] MEDS ORDERED: cefOXitin 2,000 MG in Water for inj. (sterile) 20 ML IVP SCH (08:00)
--- NOTE | 2019-07-15 08:06 | AcuteCareSurgery Progress Note ---
Date of Encounter: 07/15/19 Time of Encounter: 07:15 - Assessment and Plan (1) Cecal volvulus Current Visit: Yes Status: Acute resolved s/p ex lap with right hemicolectomy. Maintain NGT until increased bowel function. Pt is stable post-op and may be transferred to surgical floor when OK with primary service. (2) S/P right hemicolectomy Current Visit: Yes Status: Acute POD#0 (3) Atrial fibrillation Current Visit: No Status: Chronic NSR. Anticoagulation is on hold post-op. Qualifiers: Atrial fibrillation type: paroxysmal Qualified Code(s): I48.0 - Paroxysmal atrial fibrillation (4) Peripheral vascular disease Current Visit: No Status: Chronic Subjective Patient reports: no new complaints, feels better, pain is less, no flatus, no bowel movement, afebrile Narrative: POD#0 ex lap and right hemicolectomy for obstructing cecal volvulus. Objective Vital Signs - Last 8 Hours Temp Pulse Resp BP Pulse Ox 07/15/19 07:21 98.1 F 07/15/19 07:00 98 20 169/76 100 07/15/19 06:00 85 20 184/89 100 07/15/19 05:00 87 20 174/86 100 07/15/19 03:00 84 18 144/92 95 07/15/19 02:00 98.9 F 95 20 169/85 94 Intake and Output 07/14/19 07/15/19 07/15/19 23:59 07:59 15:59 Output Total 925 / 925 Balance -925 / -925 Output: Estimated Blood Loss 25 / 25 Urine Amount (Catheter) 200 / 200 Catheter 700 / 700 Gastric Drainage 0 / 0 Other: Weight 67.7 kg Blood Glucose* 111 Patient Weight 07/15/19 23:59 Weight 67.7 kg - General physical appearance no distress, moderate pain (well controlled post-op) - Eyes PERRL, normal ocular movement - ENT no congestion, dry mucosa - Neck Neck exam: trachea midline, no venous distension - Respiratory normal respiratory effort, clear to auscultation - Cardiovascular Cardiovascular exam: Present: RRR. Absent: JVD - Abdomen Abdomen: Present: soft, distended, tender (as expected post-op). Absent: bowel sounds present Additional Comments: NGT in place - Integumentary no rash - Neurologic CN 2-12 grossly intact, normal coordination - Musculoskeletal normal posture - Psychiatric oriented to time, oriented to person, oriented to place - Labs 07/15/19 03:17 07/15/19 03:17 Diabetes panel 07/15/19 Range/Units 03:17 Sodium 140 (136-145) mEq/L Potassium 3.2 L (3.5-5.1) mEq/L Chloride 102 (98-107) mEq/L Carbon Dioxide 26 (23-29) mEq/L BUN 7 L (8-23) mg/dL Creatinine 0.71 (0.60-1.20) mg/dL Glucose 114 H (70-105) mg/dL Calcium 8.5 L (8.6-10.3) mg/dL Calcium panel 07/15/19 Range/Units 03:17 Calcium 8.5 L (8.6-10.3) mg/dL Pituitary panel 07/15/19 Range/Units 03:17 Sodium 140 (136-145) mEq/L Potassium 3.2 L (3.5-5.1) mEq/L Chloride 102 (98-107) mEq/L Carbon Dioxide 26 (23-29) mEq/L BUN 7 L (8-23) mg/dL Creatinine 0.71 (0.60-1.20) mg/dL Glucose 114 H (70-105) mg/dL Calcium 8.5 L (8.6-10.3) mg/dL Adrenal panel 07/15/19 Range/Units 03:17 Sodium 140 (136-145) mEq/L Potassium 3.2 L (3.5-5.1) mEq/L Chloride 102 (98-107) mEq/L Carbon Dioxide 26 (23-29) mEq/L BUN 7 L (8-23) mg/dL Creatinine 0.71 (0.60-1.20) mg/dL Glucose 114 H (70-105) mg/dL Calcium 8.5 L (8.6-10.3) mg/dL Consult Discharge Plan - Plan Referrals: NONE,PCP [Primary Care Provider] -
[2019-07-15] MEDS ORDERED: Potassium Chloride 40 MEQ, Lidocaine 1% 2 ML in D5% in Water 500 ML IVPB ONE (08:12)
[2019-07-15] MEDS ORDERED: Diltiazem CD (24hr) 240 MG CAPSULE PO SCH (09:00)
[2019-07-15] MEDS: Morphine Sulfate 2 MG/ML SYRINGE IVP PRN ×2 (09:11→15:40)
[2019-07-15] MEDS: cefOXitin 2,000 MG in Water for inj. (sterile) 20 ML IVP SCH ×2 (10:26→19:47)
[2019-07-15] MEDS: *HR* Metoprolol 5 MG/5 ML VIAL IVP SCH ×3 (10:26→23:17)
[2019-07-15] MEDS ORDERED: 0.9 % Sodium Chloride 1,000 ML IVC ONE (16:34)
[2019-07-15] MEDS ORDERED: Metoclopramide 10 MG/2 ML VIAL IVP PRN (16:34)
[2019-07-15 17:08] LABS: Nucleated Red Blood Cells 0.2 /100 WBC (0)
[2019-07-15 17:09] LABS: Hematocrit 34.6 % (35.3-44.9); Hemoglobin 11.3 g/dL (11.5-15.4); Mean Corpuscular HGB Conc 32.7 g/dL (31.6-35.5); Mean Platelet Volume 9.5 fL (9.4-12.4); Platelet Count 516 K/mcL (140-400); Red Blood Count 3.53 M/mcL (3.82-4.97); Red Cell Distribution Width 17.4 % (11.5-14.5)
[2019-07-15 17:12] LABS: White Blood Count 57.5 K/mcL (4.3-11.1)
[2019-07-15 17:38] LABS: Large Platelets Present (Not Present); Lymphocytes # 1.2 K/mcL (0.6-4.6); Monocytes # 3.5 K/mcL (0.0-1.3); Neutrophils # 51.8 K/mcL (1.6-8.9); Platelet Estimate Increased (Normal)
[2019-07-15] MEDS: Acetaminophen IV 1,000 MG/100 ML INFUS..BTL IVPB SCH ×2 (18:25→23:18)
[2019-07-15] MEDS: Fluconazole 200 MG/100 ML 200 MG/100 ML BAG IVPB SCH (19:48)
[2019-07-16] MEDS: cefOXitin 2,000 MG in Water for inj. (sterile) 20 ML IVP SCH ×3 (02:18→19:41)
[2019-07-16] MEDS: 0.9 % Sodium Chloride 1,000 ML IVC SCH ×4 (02:18→18:41)
[2019-07-16] MEDS: *HR* Heparin 5,000 UNIT/ML VIAL SQ SCH ×2 (05:31→16:55)
[2019-07-16] MEDS: Acetaminophen IV 1,000 MG/100 ML INFUS..BTL IVPB SCH ×4 (05:31→23:54)
[2019-07-16 05:55] LABS: Basophils % 0.1 %; Mean Platelet Volume 10.3 fL (9.4-12.4); Monocytes % 7.4 %; Nucleated Red Blood Cells 0.1 /100 WBC (0); Red Cell Distribution Width 17.8 % (11.5-14.5)
[2019-07-16 05:57] LABS: Hematocrit 24.6 % (35.3-44.9); Hemoglobin 7.9 g/dL (11.5-15.4); Immature Granulocytes % 0.9 % (0-4); Lymphocytes # 1.5 K/mcL (0.6-4.6); Mean Corpuscular HGB Conc 32.1 g/dL (31.6-35.5); Mean Corpuscular Hemoglobin 31.3 pg (28.0-33.3); Mean Corpuscular Volume 97.6 fL (83.0-100.0); Monocytes # 2.3 K/mcL (0.0-1.3); Neutrophils # 26.7 K/mcL (1.6-8.9); Platelet Count 375 K/mcL (140-400); Red Blood Count 2.52 M/mcL (3.82-4.97); Segmented Neutrophils % 86.6 %
[2019-07-16 06:11] LABS: White Blood Count 30.8 K/mcL (4.3-11.1)
[2019-07-16 06:19] LABS: Anisocytosis 1+ (Not Present); Platelet Estimate Normal (Normal)
[2019-07-16 06:20] LABS: Macrocytosis Present (Not Present)
[2019-07-16 06:23] LABS: Alanine Aminotransferase 9 Units/L (7-52); Albumin 2.9 g/dL (3.5-5.7); Albumin/Globulin Ratio 1.8 (1.1-2.2); Alkaline Phosphatase 46 Units/L (34-104); Aspartate Amino Transferase 7 Units/L (13-39); BUN/Creatinine Ratio 18 (6-26); Bilirubin,Total 0.5 mg/dL (0.3-1.0); Blood Urea Nitrogen 14 mg/dL (8-23); Calcium 7.8 mg/dL (8.6-10.3); Carbon Dioxide 24 mEq/L (23-29); Chloride 107 mEq/L (98-107); Globulin 1.6 g/dL (2.4-3.5); Glucose 136 mg/dL (70-105); Osmolality,Calculated 293 (280-300); Potassium 4.4 mEq/L (3.5-5.1); Sodium 140 mEq/L (136-145); Total Protein 4.5 g/dL (6.4-8.9); eGFR For African Americans > 60 (> 60); eGFR For Non-African Americans > 60 (> 60)
--- NOTE | 2019-07-16 08:30 | AcuteCareSurgery Progress Note ---
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 Patient lying in bed comfortable. NG tube still in place and will remain at this time to low intermittent wall suction. Await return of bowel function. Will start dressing changes tomorrow. 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 Likely related to the margination from the vessels following her surgery and her history of CML. On cefoxitin and Diflucan. Subjective Patient reports: other (Patient lying in bed, comfortable. No nausea. NG tube in place. Admits to some mild discomfort. Off pressors.) Objective Vital Signs - Last 8 Hours Temp Pulse Resp BP Pulse Ox 07/16/19 07:21 98.1 F 07/16/19 07:11 99 07/16/19 07:00 103 15 163/78 99 07/16/19 06:00 105 15 161/79 100 07/16/19 05:00 101 16 159/75 99 07/16/19 04:04 98 07/16/19 04:00 98.0 F 103 20 143/78 99 07/16/19 03:00 101 16 140/75 99 07/16/19 02:00 102 14 124/73 99 07/16/19 01:00 100 20 127/74 98 Intake and Output 07/15/19 07/16/19 07/16/19 23:59 07:59 15:59 Intake Total 1220 / 1260 1220 / 1220 Output Total 230 / 1480 400 / 400 Balance 990 / -220 820 / 820 Intake: IV Fluids 1220 / 1260 1220 / 1220 0.9 % Sodium Chloride 1,000 ML 1000 / 1000 1000 / 1000 @ 75 mls/hr IVC .[id number] [facility] Rx #:[id number] Mefoxin 2,000 MG In Water for 20 / 20 inj. (sterile) 20 ML @ 300 mls/ hr IVP Q8H [facility] Rx#:[id number] Ofirmev 1,000 mg/100 ml 1,000 100 / 100 200 / 200 mg In 100 ml @ 400 mls/hr IVPB Q6HR [facility] Rx#:[id number] Diflucan Premix 200 MG/100 ML 100 / 100 200 mg In 100 ml @ 100 mls/hr IVPB Q24H [facility] Rx#:[id number] Output: Catheter 130 / 955 350 / 350 Gastric Drainage 100 / 300 50 / 50 Other: Weight 67.7 kg Blood Glucose* 138 Patient Weight 07/16/19 23:59 Weight 67.7 kg - General physical appearance well nourished, no distress - Abdomen Abdomen: Present: bowel sounds present (Hypoactive), soft, tender (Mild incisional) - Labs 07/16/19 04:42 07/16/19 04:42 Diabetes panel 07/16/19 Range/Units 04:42 Sodium 140 (136-145) mEq/L Potassium 4.4 (3.5-5.1) mEq/L Chloride 107 (98-107) mEq/L Carbon Dioxide 24 (23-29) mEq/L BUN 14 (8-23) mg/dL Creatinine 0.78 (0.60-1.20) mg/dL Glucose 136 H (70-105) mg/dL Calcium 7.8 L (8.6-10.3) mg/dL AST 7 L (13-39) Units/L ALT 9 (7-52) Units/L Alkaline Phosphatase 46 (34-104) Units/L Albumin 2.9 L (3.5-5.7) g/dL Calcium panel 07/16/19 Range/Units 04:42 Calcium 7.8 L (8.6-10.3) mg/dL Albumin 2.9 L (3.5-5.7) g/dL Pituitary panel 07/16/19 Range/Units 04:42 Sodium 140 (136-145) mEq/L Potassium 4.4 (3.5-5.1) mEq/L Chloride 107 (98-107) mEq/L Carbon Dioxide 24 (23-29) mEq/L BUN 14 (8-23) mg/dL Creatinine 0.78 (0.60-1.20) mg/dL Glucose 136 H (70-105) mg/dL Calcium 7.8 L (8.6-10.3) mg/dL Adrenal panel 07/16/19 Range/Units 04:42 Sodium 140 (136-145) mEq/L Potassium 4.4 (3.5-5.1) mEq/L Chloride 107 (98-107) mEq/L Carbon Dioxide 24 (23-29) mEq/L BUN 14 (8-23) mg/dL Creatinine 0.78 (0.60-1.20) mg/dL Glucose 136 H (70-105) mg/dL Calcium 7.8 L (8.6-10.3) mg/dL Total Bilirubin 0.5 (0.3-1.0) mg/dL AST 7 L (13-39) Units/L ALT 9 (7-52) Units/L Alkaline Phosphatase 46 (34-104) Units/L Albumin 2.9 L (3.5-5.7) g/dL Consult Discharge Plan - Plan Referrals: NONE,PCP [Primary Care Provider] -
[2019-07-16] MEDS: *HR* Metoprolol 5 MG/5 ML VIAL IVP SCH ×3 (08:57→19:41)
[2019-07-16] MEDS: Morphine Sulfate 2 MG/ML SYRINGE IVP PRN ×3 (09:05→23:55)
--- NOTE | 2019-07-16 11:49 | Internal Med Progress Note ---
Hospitalist Progress Note - Encounter Date of Encounter: 07/16/19 Time of Encounter: 11:47 - Subjective Interval History: Patient was seen and examined at bedside today. Patient denied any acute issues overnight. Patient has a surgery for sigmoid volvulus done andshe stayed in ICU yesterday due to low blood pressure and high white count. White count is down trending. Patient blood pressure is controlled. Patient's blood pressure medications were resumed this morning. Patient reports of abdominal pain when she moves at the surgical site. Patient has not passed gas yet. We will continue nothing by mouth by mouth and continue NG tube. IV hydration. We will continue to follow surgery recommendation. - Exam Vitals: Temp Pulse Resp BP Pulse Ox 98.1 F 98 20 148/72 97 07/16/19 07:21 07/16/19 10:00 07/16/19 10:00 07/16/19 10:00 07/16/19 10:00 Exam: General: A & O 3, In no acute distress HENNT: PERRLA. Head atraumatic and makes supple CVS S1 and S2 regular, no murmur RS: Clear to air entry bilaterally, no wheeze, no crackles Abdomen: Moderate abdominal tenderness. Bowel sounds present. Dressing in place. Extremities: No cyanosis, clubbing, and edema Neurology: Cranial 2 through 12 normal. Motor strength 5/5 bilaterally. Sensation intact - Assessment and Plan (1) Volvulus of colon Current Visit: Yes Status: Acute Assessment and Plan: Vision is status post surgery for sigmoid volvulus postoperative day 2. Patient has tolerated procedure well. Patient white count is down trending. Patient blood pressure has been well controlled. We will continue to monitor patient. Nothing by mouth by mouth. NG tube in place. Patient has not passed flatus. Will follow further recommendation from surgery. We will continue to monitor. (2) Atrial fibrillation Current Visit: No Status: Chronic Assessment and Plan: Patient was placed on metoprolol 5 MG IV push every 8 hours. We will change metoprolol 5 mg IV every 6 hours today. Continue to hold Xarelto post surgery. We will resume xarelto in the 1-2 day once cleared by surgery. 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 She takes cilostazol and pravastatin. -Will hold cilostazol as patient is going to OR (5) DVT prophylaxis Current Visit: No Status: Acute Assessment and Plan: EPCD - Time Spent with Patient Total time spent is greater than 50% in coordination of care (as documented) at patient's floor/unit and/or counseling patient: 25 - 35 minutes Plan of Care Discussed with: patient Internal Medicine: Result - Labs CBC & Chem 7: 07/16/19 04:42 07/16/19 04:42 Labs: Short CBC 07/15/19 07/16/19 Range/Units 16:52 04:42 WBC 57.5 H* D 30.8 H* (4.3-11.1) K/mcL Hgb 11.3 L 7.9 L D (11.5-15.4) g/dL Hct 34.6 L 24.6 L (35.3-44.9) % Plt Count 516 H 375 (140-400) K/mcL Neutrophils # 51.8 H 26.7 H (1.6-8.9) K/mcL BMP 07/16/19 04:42 Sodium 140 Potassium 4.4 Chloride 107 Carbon Dioxide 24 BUN 14 Creatinine 0.78 Glucose 136 H Calcium 7.8 L Liver Function 07/16/19 Range/Units 04:42 Total Bilirubin 0.5 (0.3-1.0) mg/dL AST 7 L (13-39) Units/L ALT 9 (7-52) Units/L Alkaline Phosphatase 46 (34-104) Units/L Albumin 2.9 L (3.5-5.7) g/dL Consult Discharge Plan - Plan Referrals: NONE,PCP [Primary Care Provider] - (2) Atrial fibrillation Qualifiers: Atrial fibrillation type: paroxysmal Qualified Code(s): I48.0 - Paroxysmal atrial fibrillation
[2019-07-16] MEDS: Pantoprazole 40 MG VIAL IVP SCH (12:11)
[2019-07-16] MEDS ORDERED: 0.9 % Sodium Chloride 500 ML ONE (13:49)
[2019-07-16] MEDS: Fluconazole 200 MG/100 ML 200 MG/100 ML BAG IVPB SCH (16:56)
[2019-07-16 19:05] LABS: BUN/Creatinine Ratio 20 (6-26); Blood Urea Nitrogen 12 mg/dL (8-23); Carbon Dioxide 22 mEq/L (23-29); Chloride 108 mEq/L (98-107); Glucose 101 mg/dL (70-105); Osmolality,Calculated 284 (280-300); Potassium 4.1 mEq/L (3.5-5.1); Sodium 137 mEq/L (136-145); eGFR For African Americans > 60 (> 60); eGFR For Non-African Americans > 60 (> 60)
[2019-07-17] MEDS: Ondansetron 4 MG/2 ML VIAL IVP PRN ×2 (00:07→09:27)
[2019-07-17] MEDS: *HR* Metoprolol 5 MG/5 ML VIAL IVP SCH ×2 (02:34→07:56)
[2019-07-17] MEDS: 0.9 % Sodium Chloride 1,000 ML IVC SCH ×4 (02:34→23:31)
[2019-07-17] MEDS: cefOXitin 2,000 MG in Water for inj. (sterile) 20 ML IVP SCH ×3 (02:34→21:23)
[2019-07-17 04:15] LABS: Basophils % 0.1 %; Eosinophils % 0.3 %; Immature Granulocytes % 0.8 % (0-4); Monocytes % 6.1 %
[2019-07-17 04:16] LABS: Eosinophils # 0.1 K/mcL (0.0-0.6); Hematocrit 26.3 % (35.3-44.9); Hemoglobin 8.5 g/dL (11.5-15.4); Lymphocytes # 1.5 K/mcL (0.6-4.6); Lymphocytes % 5.6 %; Mean Corpuscular HGB Conc 32.3 g/dL (31.6-35.5); Mean Platelet Volume 9.7 fL (9.4-12.4); Monocytes # 1.6 K/mcL (0.0-1.3); Neutrophils # 23.2 K/mcL (1.6-8.9); Platelet Count 275 K/mcL (140-400); Red Blood Count 2.74 M/mcL (3.82-4.97); Red Cell Distribution Width 17.8 % (11.5-14.5); Segmented Neutrophils % 87.1 %; White Blood Count 26.6 K/mcL (4.3-11.1)
[2019-07-17 04:33] LABS: BUN/Creatinine Ratio 18 (6-26); Blood Urea Nitrogen 10 mg/dL (8-23); Calcium 7.8 mg/dL (8.6-10.3); Carbon Dioxide 23 mEq/L (23-29); Chloride 107 mEq/L (98-107); Glucose 92 mg/dL (70-105); Osmolality,Calculated 281 (280-300); Potassium 3.8 mEq/L (3.5-5.1); Sodium 136 mEq/L (136-145); eGFR For African Americans > 60 (> 60); eGFR For Non-African Americans > 60 (> 60)
[2019-07-17 04:42] LABS: Anisocytosis 1+ (Not Present)
[2019-07-17 04:43] LABS: Platelet Estimate Normal (Normal)
[2019-07-17] MEDS: Pantoprazole 40 MG VIAL IVP SCH (05:49)
[2019-07-17] MEDS: *HR* Heparin 5,000 UNIT/ML VIAL SQ SCH (05:49)
[2019-07-17] MEDS: Acetaminophen IV 1,000 MG/100 ML INFUS..BTL IVPB SCH ×5 (05:49→23:34)
--- NOTE | 2019-07-17 08:18 | AcuteCareSurgery Progress Note ---
Date of Encounter: 07/17/19 Time of Encounter: 07:50 - Assessment and Plan (1) Volvulus of colon Current Visit: Yes Status: Acute The patient is postoperative day 3 from extended right hemicolectomy for cecal volvulus. The patient has leukocytosis likely related to chronic myelogenous leukemia. She is afebrile. She has normal bowel sounds today. Nasogastric tube will be removed and we will restart her oral medicines Subjective Narrative: The patient is seen and evaluated on morning rounds with the acute care surgery team. She is awake and alert. Nasogastric tube drainage has fallen to 50 mL per shift. She has normal bowel sounds. Nasogastric tube can be removed today. I will start her on her oral medicines. She can have a volume restricted clear liquid diet. Her incision is clean and dry. She is postoperative day 3 from extended right hemicolectomy for cecal volvulus Objective Vital Signs - Last 8 Hours Temp Pulse Resp BP Pulse Ox 07/17/19 07:34 98.3 F 07/17/19 07:30 82 18 150/76 96 07/17/19 06:00 94 17 141/95 98 07/17/19 05:00 94 17 164/79 98 07/17/19 04:16 98.2 F 07/17/19 04:00 88 15 150/78 99 07/17/19 03:25 82 07/17/19 03:00 87 14 149/72 97 07/17/19 02:00 82 14 139/70 98 07/17/19 01:00 81 14 143/71 98 07/17/19 00:44 97.4 F L Intake and Output 07/16/19 07/17/19 07/17/19 23:59 07:59 15:59 Intake Total 1450 / 3790 1240 / 1240 Output Total 500 / 1300 1400 / 1400 Balance 950 / 2490 -160 / -160 Intake: IV Fluids 1200 / 3540 1240 / 1240 0.9 % Sodium Chloride 1,000 ML 1000 / 1000 1000 / 1000 @ 125 mls/hr IVC .Q8H [facility] Rx#: [id number] Mefoxin 2,000 MG In Water for 40 / 40 inj. (sterile) 20 ML @ 300 mls/ hr IVP Q8H [facility] Rx#:[id number] Ofirmev 1,000 mg/100 ml 1,000 100 / 400 200 / 200 mg In 100 ml @ 400 mls/hr IVPB Q6HR [facility] Rx#:[id number] Diflucan Premix 200 MG/100 ML 100 / 100 200 mg In 100 ml @ 100 mls/hr IVPB Q24H [facility] Rx#:[id number] Blood Product 250 / 250 Rbcs Leuko Poor As-1 Unit 250 / 250 [id number] Output: Catheter 500 / 1250 1400 / 1400 Other: Weight 68.8 kg Patient Weight 07/17/19 23:59 Weight 68.8 kg - General physical appearance well developed, well nourished, no distress, no pain - Respiratory normal expansion, normal respiratory effort, clear to auscultation - Cardiovascular Cardiovascular exam: Present: RRR, no murmurs/rubs/gallops - Abdomen Abdomen: Present: bowel sounds present, soft, non tender - Incision Incision: Present: clean and dry, intact - Neurologic CN 2-12 grossly intact - Psychiatric oriented to time, oriented to person, oriented to place - Labs 07/17/19 03:48 07/17/19 03:48 Diabetes panel 07/16/19 07/17/19 Range/Units 18:30 03:48 Sodium 137 136 (136-145) mEq/L Potassium 4.1 3.8 (3.5-5.1) mEq/L Chloride 108 H 107 (98-107) mEq/L Carbon Dioxide 22 L 23 (23-29) mEq/L BUN 12 10 (8-23) mg/dL Creatinine 0.61 0.55 L (0.60-1.20) mg/dL Glucose 101 92 (70-105) mg/dL Calcium 8.0 L 7.8 L (8.6-10.3) mg/dL Calcium panel 07/16/19 07/17/19 Range/Units 18:30 03:48 Calcium 8.0 L 7.8 L (8.6-10.3) mg/dL Pituitary panel 07/16/19 07/17/19 Range/Units 18:30 03:48 Sodium 137 136 (136-145) mEq/L Potassium 4.1 3.8 (3.5-5.1) mEq/L Chloride 108 H 107 (98-107) mEq/L Carbon Dioxide 22 L 23 (23-29) mEq/L BUN 12 10 (8-23) mg/dL Creatinine 0.61 0.55 L (0.60-1.20) mg/dL Glucose 101 92 (70-105) mg/dL Calcium 8.0 L 7.8 L (8.6-10.3) mg/dL Adrenal panel 07/16/19 07/17/19 Range/Units 18:30 03:48 Sodium 137 136 (136-145) mEq/L Potassium 4.1 3.8 (3.5-5.1) mEq/L Chloride 108 H 107 (98-107) mEq/L Carbon Dioxide 22 L 23 (23-29) mEq/L BUN 12 10 (8-23) mg/dL Creatinine 0.61 0.55 L (0.60-1.20) mg/dL Glucose 101 92 (70-105) mg/dL Calcium 8.0 L 7.8 L (8.6-10.3) mg/dL Consult Discharge Plan - Plan Referrals: NONE,PCP [Primary Care Provider] -
[2019-07-17] MEDS ORDERED: Diltiazem CD (24hr) 240 MG CAPSULE PO SCH (09:00)
[2019-07-17] MEDS ORDERED: *HR* Rivaroxaban 10 MG TABLET PO SCH (09:00)
--- NOTE | 2019-07-17 12:46 | Internal Med Progress Note ---
Hospitalist Progress Note - Encounter Date of Encounter: 07/17/19 Time of Encounter: 15:20 - Subjective Interval History: She was seen and examined at bedside today. She reports of abdominal pain which can worsen with movement. Pain is located surgical site. Pain is 4 to 6 out of 10 in intensity. Patient denies any nausea, vomiting, and diarrhea. Patient's NG tube was discontinued today and once her diet as tolerated. We will resume home medication. - Exam Vitals: Temp Pulse Resp BP Pulse Ox 99.1 F 91 20 145/76 4 07/17/19 11:46 07/17/19 09:25 07/17/19 09:25 07/17/19 09:25 07/17/19 09:25 Exam: General: A & O 3, In no acute distress HENNT: PERRLA. Head atraumatic and makes supple, NG tube discontinued tday CVS S1 and S2 regular, no murmur RS: Clear to air entry bilaterally, no wheeze, no crackles Abdomen: Moderate abdominal tenderness. Bowel sounds present. Dressing in place. No soaking of the dressing Extremities: No cyanosis, clubbing, and edema Neurology: Cranial 2 through 12 normal. Motor strength 5/5 bilaterally. Sensation intact - Assessment and Plan (1) Volvulus of colon Current Visit: Yes Status: Acute Assessment and Plan: Patient is status post surgery for sigmoid volvulus postoperative day 3. Chloe ent has tolerated procedure well. Patient white count is down trending. White count today is around 26. Patient has a history of CML. Patient reports abdominal pain although she denies any nausea and vomiting. NG tube was discontinued today. Patient's diet was advanced. Over that once diet as tolerated. Encouraged to use incentive spirometry while awake. Postoperative care based on the surgery team. (2) Atrial fibrillation Current Visit: No Status: Chronic Assessment and Plan: Patient's by mouth diet was resumed today. Patient's home medications including including xarelto. Continue to monitor. IV metoprolol was discontinued. (3) Anemia Current Visit: Yes Status: Acute Assessment and Plan: Hemoglobin drop postoperatively. Likely due to postoperative blood loss. Patient received 1 PRBC yesterday. Hemoglobin today is 8.5. We will continue to monitor. (4) CML (chronic myelocytic leukemia) Current Visit: No Status: Chronic Assessment and Plan: She has known history of CML for which she was completed treatment (5) Peripheral vascular disease Current Visit: No Status: Chronic Assessment and Plan: Patient is known history of peripheral vascular disease for which she has a stent. She takes cilostazol and pravastatin. -Will hold cilostazol as patient is going to OR (6) DVT prophylaxis Current Visit: No Status: Acute Assessment and Plan: Patient's home Xarelto resume today. - Time Spent with Patient Total time spent is greater than 50% in coordination of care (as documented) at patient's floor/unit and/or counseling patient: Internal Medicine: Result - Labs CBC & Chem 7: 07/17/19 03:48 07/17/19 03:48 Labs: Short CBC 07/17/19 Range/Units 03:48 WBC 26.6 H (4.3-11.1) K/mcL Hgb 8.5 L (11.5-15.4) g/dL Hct 26.3 L (35.3-44.9) % Plt Count 275 (140-400) K/mcL Neutrophils # 23.2 H (1.6-8.9) K/mcL BMP 07/16/19 07/17/19 18:30 03:48 Sodium 137 136 Potassium 4.1 3.8 Chloride 108 H 107 Carbon Dioxide 22 L 23 BUN 12 10 Creatinine 0.61 0.55 L Glucose 101 92 Calcium 8.0 L 7.8 L Consult Discharge Plan - Plan Referrals: NONE,PCP [Primary Care Provider] - (2) Atrial fibrillation Qualifiers: Atrial fibrillation type: paroxysmal Qualified Code(s): I48.0 - Paroxysmal atrial fibrillation (3) Anemia Qualifiers: Other causes of anemia: chronic disease, other
[2019-07-17] MEDS ORDERED: Morphine Sulfate 2 MG/ML SYRINGE IVP PRN (17:29)
[2019-07-17] MEDS: Fluconazole 200 MG/100 ML 200 MG/100 ML BAG IVPB SCH ×2 (18:20→19:27)
[2019-07-17] MEDS ORDERED: traZODone 50 MG TABLET PO SCH (21:00)
[2019-07-17] MEDS: traZODone 50 MG TABLET PO SCH (21:22)
[2019-07-18 02:11] LABS: Basophils % 0.1 %; Eosinophils # 0.4 K/mcL (0.0-0.6); Eosinophils % 1.7 %; Hematocrit 25.8 % (35.3-44.9); Hemoglobin 8.3 g/dL (11.5-15.4); Immature Granulocytes % 0.7 % (0-4); Lymphocytes # 1.4 K/mcL (0.6-4.6); Lymphocytes % 6.3 %; Mean Corpuscular HGB Conc 32.2 g/dL (31.6-35.5); Mean Corpuscular Hemoglobin 30.9 pg (28.0-33.3); Mean Corpuscular Volume 95.9 fL (83.0-100.0); Mean Platelet Volume 9.9 fL (9.4-12.4); Monocytes # 1.5 K/mcL (0.0-1.3); Monocytes % 6.7 %; Neutrophils # 19.5 K/mcL (1.6-8.9); Nucleated Red Blood Cells 0.1 /100 WBC (0); Platelet Count 312 K/mcL (140-400); Red Blood Count 2.69 M/mcL (3.82-4.97); Red Cell Distribution Width 17.2 % (11.5-14.5); Segmented Neutrophils % 84.5 %
[2019-07-18 02:30] LABS: BUN/Creatinine Ratio 21 (6-26); Blood Urea Nitrogen 13 mg/dL (8-23); Calcium 7.9 mg/dL (8.6-10.3); Carbon Dioxide 21 mEq/L (23-29); Chloride 104 mEq/L (98-107); Glucose 80 mg/dL (70-105); Osmolality,Calculated 277 (280-300); Potassium 3.5 mEq/L (3.5-5.1); Sodium 134 mEq/L (136-145); eGFR For African Americans > 60 (> 60); eGFR For Non-African Americans > 60 (> 60)
[2019-07-18] MEDS: cefOXitin 2,000 MG in Water for inj. (sterile) 20 ML IVP SCH ×3 (04:51→18:12)
[2019-07-18] MEDS: Pantoprazole 40 MG VIAL IVP SCH (05:53)
[2019-07-18] MEDS: Acetaminophen IV 1,000 MG/100 ML INFUS..BTL IVPB SCH ×3 (05:54→18:16)
[2019-07-18] MEDS: Diltiazem CD (24hr) 240 MG CAPSULE PO SCH (09:13)
[2019-07-18] MEDS: *HR* Rivaroxaban 10 MG TABLET PO SCH (09:14)
[2019-07-18] MEDS: Metoclopramide 10 MG/2 ML VIAL IVP PRN ×2 (10:46→19:21)
--- NOTE | 2019-07-18 13:15 | AcuteCareSurgery Progress Note ---
Date of Encounter: 07/18/19 Time of Encounter: 10:00 - Assessment and Plan (1) Cecal volvulus Current Visit: Yes Status: Acute resolved s/p ex lap with right hemicolectomy. Pt sitting up in chair, tolerating clears. Post-op condition is good, pt may be transferred to surgical floor when OK with primary service. (2) S/P right hemicolectomy Current Visit: Yes Status: Acute POD#3 (3) Atrial fibrillation Current Visit: No Status: Chronic NSR. Anticoagulation has been restarted. Qualifiers: Atrial fibrillation type: paroxysmal Qualified Code(s): I48.0 - Paroxysmal atrial fibrillation (4) Peripheral vascular disease Current Visit: No Status: Chronic Subjective Patient reports: no new complaints, feels better, pain is less, tolerating liquids well, flatus, no bowel movement, afebrile Objective Vital Signs - Last 8 Hours Temp Pulse Resp BP Pulse Ox 07/18/19 12:01 98.2 F 79 15 129/68 91 07/18/19 11:30 80 18 131/62 93 07/18/19 10:15 86 22 93 07/18/19 09:15 102 20 123/78 93 07/18/19 08:14 98.7 F 07/18/19 08:00 97 18 95 07/18/19 06:00 82 16 93 Intake and Output 07/17/19 07/18/19 07/18/19 23:59 07:59 15:59 Intake Total 320 / 2680 120 / 420 300 / 420 Output Total 125 / 1900 325 / 500 175 / 500 Balance 195 / 780 -205 / -80 125 / -80 Intake: IV Fluids 320 / 2680 120 / 120 Mefoxin 2,000 MG In Water for 20 20 / 20 inj. (sterile) 20 ML @ 300 mls/ hr IVP Q8H [facility] Rx#:[id number] Ofirmev 1,000 mg/100 ml 1,000 200 / 500 100 / 100 mg In 100 ml @ 400 mls/hr IVPB Q6HR [facility] Rx#:[id number] Diflucan Premix 200 MG/100 ML 100 / 100 200 mg In 100 ml @ 100 mls/hr IVPB Q24H [facility] Rx#:[id number] Oral 300 / 300 Output: Catheter 125 / 1900 325 / 500 175 / 500 Other: Weight 75 kg Patient Weight 07/18/19 23:59 Weight 75 kg - General physical appearance no distress, moderate pain (as expected post-op) - Eyes PERRL, normal ocular movement - ENT normal mucosa, no congestion - Neck Neck exam: trachea midline, no venous distension - Respiratory normal respiratory effort, clear to auscultation - Cardiovascular Cardiovascular exam: Present: RRR, JVD - Abdomen Abdomen: Present: bowel sounds present, soft, tender. Absent: guarding, rebound - Incision Incision: Present: clean and dry, intact - Neurologic CN 2-12 grossly intact, normal coordination - Musculoskeletal normal posture - Psychiatric oriented to time, oriented to person, oriented to place - Labs 07/18/19 02:01 07/18/19 02:01 Diabetes panel 07/18/19 Range/Units 02:01 Sodium 134 L (136-145) mEq/L Potassium 3.5 (3.5-5.1) mEq/L Chloride 104 (98-107) mEq/L Carbon Dioxide 21 L (23-29) mEq/L BUN 13 (8-23) mg/dL Creatinine 0.63 (0.60-1.20) mg/dL Glucose 80 (70-105) mg/dL Calcium 7.9 L (8.6-10.3) mg/dL Calcium panel 07/18/19 Range/Units 02:01 Calcium 7.9 L (8.6-10.3) mg/dL Pituitary panel 07/18/19 Range/Units 02:01 Sodium 134 L (136-145) mEq/L Potassium 3.5 (3.5-5.1) mEq/L Chloride 104 (98-107) mEq/L Carbon Dioxide 21 L (23-29) mEq/L BUN 13 (8-23) mg/dL Creatinine 0.63 (0.60-1.20) mg/dL Glucose 80 (70-105) mg/dL Calcium 7.9 L (8.6-10.3) mg/dL Adrenal panel 07/18/19 Range/Units 02:01 Sodium 134 L (136-145) mEq/L Potassium 3.5 (3.5-5.1) mEq/L Chloride 104 (98-107) mEq/L Carbon Dioxide 21 L (23-29) mEq/L BUN 13 (8-23) mg/dL Creatinine 0.63 (0.60-1.20) mg/dL Glucose 80 (70-105) mg/dL Calcium 7.9 L (8.6-10.3) mg/dL Consult Discharge Plan - Plan Referrals: NONE,PCP [Primary Care Provider] -
--- NOTE | 2019-07-18 13:33 | Internal Med Progress Note ---
Hospitalist Progress Note - Encounter Date of Encounter: 07/18/19 Time of Encounter: 13:30 - Subjective Interval History: Pt seen and examined at bedside. Patient reports he tolerated diet very well. Patient had a full liquid diet. Patient denied any nausea and vomiting. Patient denied any abdominal pain. Patient reports that she has not passed gas yet. Will continue to monitor. - Exam Vitals: Temp Pulse Resp BP Pulse Ox 98.2 F 79 15 129/68 91 07/18/19 12:01 07/18/19 12:07/18/19 12:07/18/19 12:07/18/19 12:01 Exam: General: A & O 3, In no acute distress HENNT: PERRLA. Head atraumatic and makes supple, NG tube discontinued tday CVS S1 and S2 regular, no murmur RS: Clear to air entry bilaterally, no wheeze, no crackles Abdomen: Moderate abdominal tenderness. Bowel sounds present. Dressing in place. No soaking of the dressing Extremities: No cyanosis, clubbing, and edema Neurology: Cranial 2 through 12 normal. Motor strength 5/5 bilaterally. Sensation intact - Assessment and Plan (1) Volvulus of colon Current Visit: Yes Status: Acute Assessment and Plan: Patient is status post surgery for sigmoid volvulus postoperative day 3. Patient has tolerated procedure well. Patient white count is down trending. White count today is around 26. Patient has a history of CML. Patient reports abdominal pain although she denies any nausea and vomiting. NG tube was discontinued today. Patient's diet was advanced. Over that once diet as tolerated. Patient has a full liquid diet. Patient has tolerated so far. Patient denied any nausea and vomiting. We will continue current management postoperative care per surgery team. (2) Atrial fibrillation Current Visit: No Status: Chronic Assessment and Plan: Patient's now on her home Cardizem and Xarelto. Continue to monitor. IV metoprolol was discontinued. (3) Anemia Current Visit: Yes Status: Acute Assessment and Plan: Hemoglobin drop postoperatively. Likely due to postoperative blood loss. Patient received 1 PRBC yesterday. Hemoglobin today is 8.3 We will continue to monitor. 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 (6) DVT prophylaxis Current Visit: No Status: Acute Assessment and Plan: Home Xarelto - Time Spent with Patient Total time spent is greater than 50% in coordination of care (as documented) at patient's floor/unit and/or counseling patient: 25 - 35 minutes Plan of Care Discussed with: patient Internal Medicine: Result - Labs CBC & Chem 7: 07/18/19 02:01 07/18/19 02:01 Labs: Short CBC 07/18/19 Range/Units 02:01 WBC 23.0 H (4.3-11.1) K/mcL Hgb 8.3 L (11.5-15.4) g/dL Hct 25.8 L (35.3-44.9) % Plt Count 312 (140-400) K/mcL Neutrophils # 19.5 H (1.6-8.9) K/mcL BMP 07/18/19 02:01 Sodium 134 L Potassium 3.5 Chloride 104 Carbon Dioxide 21 L BUN 13 Creatinine 0.63 Glucose 80 Calcium 7.9 L Consult Discharge Plan - Plan Referrals: NONE,PCP [Primary Care Provider] - (2) Atrial fibrillation Qualifiers: Atrial fibrillation type: paroxysmal Qualified Code(s): I48.0 - Paroxysmal atrial fibrillation (3) Anemia Qualifiers: Other causes of anemia: chronic disease, other
[2019-07-18] MEDS: Fluconazole 200 MG/100 ML 200 MG/100 ML BAG IVPB SCH (18:17)
[2019-07-18 21:05] LABS: Bilirubin,Urine Negative (Negative); Blood,Urine Negative (Negative); Clarity,Urine Cloudy (Clear); Color,Urine Yellow (Yellow); Glucose,Urine (UA) 100 mg/dL (Normal); Ketones,Urine 40 mg/dL (Negative); Leukocyte Esterase,Urine Trace (Negative); Nitrite,Urine Negative (Negative); Protein,Urine 30 mg/dL (Neg-Trace); Specific Gravity,Urine > 1.030 (1.010-1.025); Urobilinogen,Urine Normal (Normal)
[2019-07-18 21:07] LABS: Squamous Epithelial Cell,Urine Many per lpf (None-Few); WBC,Urine 15-30 per hpf (0-3)
[2019-07-18 21:22] LABS: Bacteria,Urine Few per hpf (None-Few); Transitional Epi Cells,Urine Moderate per hpf (None-Few)
[2019-07-18] MEDS: traZODone 50 MG TABLET PO SCH (22:40)
[2019-07-19] MEDS: Ondansetron 4 MG/2 ML VIAL IVP PRN (01:01)
[2019-07-19] MEDS: Acetaminophen IV 1,000 MG/100 ML INFUS..BTL IVPB SCH ×4 (01:03→18:13)
[2019-07-19] MEDS: cefOXitin 2,000 MG in Water for inj. (sterile) 20 ML IVP SCH ×3 (04:33→19:52)
[2019-07-19] MEDS: Metoclopramide 10 MG/2 ML VIAL IVP PRN (04:52)
[2019-07-19 05:29] LABS: Basophils % 0.2 %; Eosinophils # 0.2 K/mcL (0.0-0.6); Hemoglobin 7.6 g/dL (11.5-15.4); Immature Granulocytes % 0.8 % (0-4); Lymphocytes % 5.3 %; Mean Corpuscular Hemoglobin 30.9 pg (28.0-33.3); Mean Corpuscular Volume 93.5 fL (83.0-100.0); Mean Platelet Volume 10.2 fL (9.4-12.4); Monocytes # 1.4 K/mcL (0.0-1.3); Neutrophils # 16.6 K/mcL (1.6-8.9); Nucleated Red Blood Cells 0.3 /100 WBC (0); Platelet Count 409 K/mcL (140-400); Red Blood Count 2.46 M/mcL (3.82-4.97); Red Cell Distribution Width 16.4 % (11.5-14.5); Segmented Neutrophils % 85.7 %; White Blood Count 19.4 K/mcL (4.3-11.1)
[2019-07-19 05:47] LABS: BUN/Creatinine Ratio 20 (6-26); Blood Urea Nitrogen 14 mg/dL (8-23); Calcium 8.2 mg/dL (8.6-10.3); Carbon Dioxide 23 mEq/L (23-29); Chloride 99 mEq/L (98-107); Glucose 139 mg/dL (70-105); Osmolality,Calculated 283 (280-300); Potassium 3.3 mEq/L (3.5-5.1); Sodium 135 mEq/L (136-145); eGFR For African Americans > 60 (> 60); eGFR For Non-African Americans > 60 (> 60)
--- NOTE | 2019-07-19 09:29 | AcuteCareSurgery Progress Note ---
Date of Encounter: 07/19/19 Time of Encounter: 08:00 - Assessment and Plan (1) Cecal volvulus Current Visit: Yes Status: Acute resolved s/p ex lap with right hemicolectomy. Pt not tolerating clears. Persistent nausea. Will check KUB. Resume NPO and IVF. Reglan has already been started. Increase activity. PT/OT. (2) S/P right hemicolectomy Current Visit: Yes Status: Acute POD#4 (3) Atrial fibrillation Current Visit: No Status: Chronic NSR. Anticoagulation has been restarted. Qualifiers: Atrial fibrillation type: paroxysmal Qualified Code(s): I48.0 - Paroxysmal atrial fibrillation (4) Peripheral vascular disease Current Visit: No Status: Chronic Subjective Patient reports: pain is less, no flatus, no bowel movement, afebrile, other (nausea) Objective Vital Signs - Last 8 Hours Temp Pulse Resp BP Pulse Ox 07/19/19 06:30 98.1 F 102 19 128/69 92 Intake and Output 07/18/19 07/19/19 07/19/19 23:59 07:59 15:59 Intake Total 240 / 860 100 / 100 Output Total 100 / 600 0 / 0 Balance 140 / 260 100 / 100 Intake: IV Fluids 240 / 360 100 / 100 Mefoxin 2,000 MG In Water for 40 / 60 inj. (sterile) 20 ML @ 300 mls/ hr IVP Q8H [facility] Rx#:[id number] Ofirmev 1,000 mg/100 ml 1,000 200 / 300 100 / 100 mg In 100 ml @ 400 mls/hr IVPB Q6HR [facility] Rx#:[id number] Output: Urine 100 / 100 0 / 0 Other: # Voids 1 - General physical appearance no distress, no pain - Eyes PERRL, normal ocular movement - ENT no congestion, dry mucosa - Neck Neck exam: trachea midline, no venous distension - Respiratory normal respiratory effort, clear to auscultation - Cardiovascular Cardiovascular exam: Present: RRR, JVD - Abdomen Abdomen: Present: soft. Absent: bowel sounds present (very hypoactive) - Incision Incision: Present: clean and dry, intact - Neurologic CN 2-12 grossly intact, normal coordination - Musculoskeletal normal posture - Psychiatric oriented to time, oriented to person, oriented to place - Labs 07/19/19 04:48 07/19/19 04:48 Diabetes panel 07/19/19 Range/Units 04:48 Sodium 135 L (136-145) mEq/L Potassium 3.3 L (3.5-5.1) mEq/L Chloride 99 (98-107) mEq/L Carbon Dioxide 23 (23-29) mEq/L BUN 14 (8-23) mg/dL Creatinine 0.70 (0.60-1.20) mg/dL Glucose 139 H (70-105) mg/dL Calcium 8.2 L (8.6-10.3) mg/dL Calcium panel 07/19/19 Range/Units 04:48 Calcium 8.2 L (8.6-10.3) mg/dL Pituitary panel 07/19/19 Range/Units 04:48 Sodium 135 L (136-145) mEq/L Potassium 3.3 L (3.5-5.1) mEq/L Chloride 99 (98-107) mEq/L Carbon Dioxide 23 (23-29) mEq/L BUN 14 (8-23) mg/dL Creatinine 0.70 (0.60-1.20) mg/dL Glucose 139 H (70-105) mg/dL Calcium 8.2 L (8.6-10.3) mg/dL Adrenal panel 07/19/19 Range/Units 04:48 Sodium 135 L (136-145) mEq/L Potassium 3.3 L (3.5-5.1) mEq/L Chloride 99 (98-107) mEq/L Carbon Dioxide 23 (23-29) mEq/L BUN 14 (8-23) mg/dL Creatinine 0.70 (0.60-1.20) mg/dL Glucose 139 H (70-105) mg/dL Calcium 8.2 L (8.6-10.3) mg/dL Consult Discharge Plan - Plan Referrals: NONE,PCP [Primary Care Provider] -
[2019-07-19] MEDS: Pantoprazole 40 MG VIAL IVP SCH (10:13)
[2019-07-19] MEDS: *HR* Rivaroxaban 10 MG TABLET PO SCH (10:14)
[2019-07-19] MEDS: Diltiazem CD (24hr) 240 MG CAPSULE PO SCH (10:14)
--- NOTE | 2019-07-19 13:43 | Internal Med Progress Note ---
Hospitalist Progress Note - Encounter Date of Encounter: 07/19/19 Time of Encounter: 13:41 - Subjective Interval History: Patient was seen and examined at bedside this morning. Patient complains of nausea with clear diet. She reports that she has not passed gas. She denied abdominal pain, fever, and chills. - Exam Vitals: Temp Pulse Resp BP Pulse Ox 98.1 F 102 19 128/69 92 07/19/19 06:30 07/19/19 06:30 07/19/19 06:30 07/19/19 06:30 07/19/19 06:30 Exam: General: A & O 3, In no acute distress HENNT: PERRLA. Head atraumatic and makes supple, NG tube discontinued tday CVS S1 and S2 regular, no murmur RS: Clear to air entry bilaterally, no wheeze, no crackles Abdomen: Moderate abdominal tenderness. Bowel sounds present. Dressing in place. No soaking of the dressing Extremities: No cyanosis, clubbing, and edema Neurology: Cranial 2 through 12 normal. Motor strength 5/5 bilaterally. Sensation intact - Assessment and Plan (1) Volvulus of colon Current Visit: Yes Status: Acute Assessment and Plan: Patient is status post surgery for sigmoid volvulus postoperative day 4. Patient has tolerated procedure well. Patient white count is down trending. White count today is around 19.4. Patient's NG was discontinued and patient was placed on clear diet. However, patient complaining of nausea on clear diet. Patient was placed back on nothing by mouth diet per surgical team. KUB ordered will follow and monitor on the results. (2) Atrial fibrillation Current Visit: No Status: Chronic Assessment and Plan: Patient's now on her home Cardizem and Xarelto. Continue to monitor. IV metoprolol was discontinued. (3) Anemia Current Visit: Yes Status: Acute Assessment and Plan: Hemoglobin drop postoperatively. Likely due to postoperative blood loss. Patient received 1 PRBC yesterday. Hemoglobin today is 7.6. (4) CML (chronic myelocytic leukemia) Current Visit: No Status: Chronic Assessment and Plan: She has known history of CML for which she was completed treatment (5) Peripheral vascular disease Current Visit: No Status: Chronic (6) DVT prophylaxis Current Visit: No Status: Acute Assessment and Plan: Home Xarelto - Time Spent with Patient Total time spent is greater than 50% in coordination of care (as documented) at patient's floor/unit and/or counseling patient: 25 - 35 minutes Plan of Care Discussed with: patient Internal Medicine: Result - Labs CBC & Chem 7: 07/19/19 04:48 07/19/19 04:48 Labs: Short CBC 07/19/19 Range/Units 04:48 WBC 19.4 H (4.3-11.1) K/mcL Hgb 7.6 L (11.5-15.4) g/dL Hct 23.0 L (35.3-44.9) % Plt Count 409 H (140-400) K/mcL Neutrophils # 16.6 H (1.6-8.9) K/mcL BMP 07/19/19 04:48 Sodium 135 L Potassium 3.3 L Chloride 99 Carbon Dioxide 23 BUN 14 Creatinine 0.70 Glucose 139 H Calcium 8.2 L Urine 07/18/19 Range/Units 20:31 Urine Color Yellow (Yellow) Urine Clarity Cloudy A (Clear) Urine pH 6.0 (5.0-8.0) pH Units Ur Specific [place] > 1.030 H (1.010-1.025) Urine Protein 30 H (Neg-Trace) mg/dL Urine Glucose (UA) 100 H (Normal) mg/dL Consult Discharge Plan - Plan Referrals: NONE,PCP [Primary Care Provider] - (2) Atrial fibrillation Qualifiers: Atrial fibrillation type: paroxysmal Qualified Code(s): I48.0 - Paroxysmal atrial fibrillation (3) Anemia Qualifiers: Other causes of anemia: chronic disease, other
[2019-07-19] MEDS ORDERED: 0.9 % Sodium Chloride 250 ML ONE (15:57)
[2019-07-19] MEDS ORDERED: Menthol 9.1 MG LOZENGE PO PRN (17:26)
[2019-07-19] MEDS ORDERED: Chloraseptic Spray 177 ML BOTTLE MM PRN (17:26)
[2019-07-19] MEDS: Fluconazole 200 MG/100 ML 200 MG/100 ML BAG IVPB SCH (18:14)
[2019-07-19] MEDS: Loratadine 10 MG TABLET PO SCH (19:08)
[2019-07-19] MEDS: traZODone 50 MG TABLET PO SCH (21:40)
[2019-07-20] MEDS: Acetaminophen IV 1,000 MG/100 ML INFUS..BTL IVPB SCH ×4 (00:49→18:38)
[2019-07-20] MEDS: cefOXitin 2,000 MG in Water for inj. (sterile) 20 ML IVP SCH ×3 (04:53→18:37)
[2019-07-20 05:05] LABS: Basophils # 0.1 K/mcL (0.0-0.2); Basophils % 0.2 %; Eosinophils # 0.3 K/mcL (0.0-0.6); Eosinophils % 1.4 %; Hemoglobin 8.1 g/dL (11.5-15.4); Immature Granulocytes % 1.6 % (0-4); Lymphocytes % 4.6 %; Mean Corpuscular HGB Conc 33.8 g/dL (31.6-35.5); Mean Corpuscular Hemoglobin 31.4 pg (28.0-33.3); Mean Platelet Volume 9.4 fL (9.4-12.4); Monocytes % 9.4 %; Neutrophils # 17.5 K/mcL (1.6-8.9); Nucleated Red Blood Cells 0.4 /100 WBC (0); Platelet Count 388 K/mcL (140-400); Red Blood Count 2.58 M/mcL (3.82-4.97); Red Cell Distribution Width 17.3 % (11.5-14.5); Segmented Neutrophils % 82.8 %; White Blood Count 21.2 K/mcL (4.3-11.1)
[2019-07-20 05:24] LABS: BUN/Creatinine Ratio 40 (6-26); Blood Urea Nitrogen 19 mg/dL (8-23); Calcium 8.1 mg/dL (8.6-10.3); Carbon Dioxide 21 mEq/L (23-29); Chloride 107 mEq/L (98-107); Glucose 130 mg/dL (70-105); Osmolality,Calculated 288 (280-300); Potassium 3.5 mEq/L (3.5-5.1); Sodium 137 mEq/L (136-145); eGFR For African Americans > 60 (> 60); eGFR For Non-African Americans > 60 (> 60)
[2019-07-20] MEDS: Loratadine 10 MG TABLET PO SCH (09:36)
[2019-07-20] MEDS: *HR* Rivaroxaban 10 MG TABLET PO SCH (09:36)
[2019-07-20] MEDS: Diltiazem CD (24hr) 240 MG CAPSULE PO SCH (09:36)
[2019-07-20] MEDS: Pantoprazole 40 MG VIAL IVP SCH (09:36)
--- NOTE | 2019-07-20 10:13 | Internal Med Progress Note ---
Hospitalist Progress Note - Encounter Date of Encounter: 07/20/19 Time of Encounter: 10:11 - Subjective Interval History: Patient was seen and examined at bedside. Patient reports her mouth and throat feels dry. Patient was placed nothing by mouth yesterday by surgery team due to nausea on clear diet. Patient reports that she has passed gas. Patient reports that she has not had a bowel movement yet. Patient denies any abdominal pain, fever, and chills. - Exam Vitals: Temp Pulse Resp BP Pulse Ox 97.9 F 99 16 120/62 97 07/20/19 07:02 07/20/19 07:02 07/20/19 07:02 07/20/19 07:02 07/20/19 07:02 Exam: General: A & O 3, In no acute distress HENNT: PERRLA. Head atraumatic and makes supple, NG tube discontinued tday CVS S1 and S2 regular, no murmur RS: Clear to air entry bilaterally, no wheeze, no crackles Abdomen: No abdominal tenderness. Bowel sounds present. Surgical wound examined. No signs of infection noted. Extremities: No cyanosis, clubbing, and edema Neurology: Cranial 2 through 12 normal. Motor strength 5/5 bilaterally. Sensat ion intact - Assessment and Plan (1) Volvulus of colon Current Visit: Yes Status: Acute Assessment and Plan: Patient is status post surgery for sigmoid/cecal volvulus postoperative day 5. Patient has tolerated procedure well. Patient white count is down trending. White count today is around 21.2. Patient was placed on nothing by mouth diet yesterday due to nausea on a clear diet. Patient reports that she has passed gas. Patient reports that she has not had a bowel movement yet. Patient denies any abdominal pain, fever, chill. On exam patient does not have any abdominal tenderness. Negative for any rebound and guarding. On chart review, patient had 3 small bowel movements so far. Patient can be aadvance on diet today if surgical team approves. Also complains of weakness. Probably due to physical deconditioning from prolonged hospital stay. Physical therapy and occupational therapy consult. We will follow their recommendation. (2) Atrial fibrillation Current Visit: No Status: Chronic Assessment and Plan: Patient's now on her home Cardizem and Xarelto. Continue to monitor. (3) Anemia Current Visit: Yes Status: Acute Assessment and Plan: Likely due to surgical blood loss. Patient has received 2 packed RBC transfusion so far. Hemoglobin today 8.1. We will continue to monitor.. 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 (6) DVT prophylaxis Current Visit: No Status: Acute Assessment and Plan: Xarelto - Time Spent with Patient Total time spent is greater than 50% in coordination of care (as documented) at patient's floor/unit and/or counseling patient: 25 - 35 minutes Plan of Care Discussed with: patient Internal Medicine: Result - Labs CBC & Chem 7: 07/20/19 04:36 07/20/19 04:36 Labs: Short CBC 07/20/19 Range/Units 04:36 WBC 21.2 H (4.3-11.1) K/mcL Hgb 8.1 L (11.5-15.4) g/dL Hct 24.0 L (35.3-44.9) % Plt Count 388 (140-400) K/mcL Neutrophils # 17.5 H (1.6-8.9) K/mcL BMP 07/20/19 04:36 Sodium 137 Potassium 3.5 Chloride 107 Carbon Dioxide 21 L BUN 19 Creatinine 0.47 L Glucose 130 H Calcium 8.1 L Urine 07/18/19 Range/Units 20:31 Urine Color Yellow (Yellow) Urine Clarity Cloudy A (Clear) Urine pH 6.0 (5.0-8.0) pH Units Ur Specific [place] > 1.030 H (1.010-1.025) Urine Protein 30 H (Neg-Trace) mg/dL Urine Glucose (UA) 100 H (Normal) mg/dL Consult Discharge Plan - Plan Referrals: NONE,PCP [Primary Care Provider] - ____ (2) Atrial fibrillation Qualifiers: Atrial fibrillation type: paroxysmal Qualified Code(s): I48.0 - Paroxysmal atrial fibrillation (3) Anemia Qualifiers: Other causes of anemia: chronic disease, other
--- NOTE | 2019-07-20 17:18 | AcuteCareSurgery Progress Note ---
Date of Encounter: 07/20/19 Time of Encounter: 08:00 - Assessment and Plan (1) Cecal volvulus Current Visit: Yes Status: Acute resolved POD#5 ex lap with right hemicolectomy. Pt now tolerating clears. Denies nausea. Regular diet. Increase activity. PT/OT. retirement village manager for DC planning. (2) S/P right hemicolectomy Current Visit: Yes Status: Acute POD#4 (3) Atrial fibrillation Current Visit: No Status: Chronic NSR. Anticoagulation has been restarted. Qualifiers: Atrial fibrillation type: paroxysmal Qualified Code(s): I48.0 - Paroxysmal atrial fibrillation (4) Peripheral vascular disease Current Visit: No Status: Chronic Subjective Patient reports: feels better, pain is less, tolerating liquids well, flatus, bowel movement, afebrile Narrative: POD#5 right hemicolectomy for cecal volvulus Objective Vital Signs - Last 8 Hours Temp Pulse Resp BP Pulse Ox 07/20/19 14:49 98.2 F 102 15 124/65 93 07/20/19 10:46 98.0 F 98 14 132/71 94 Intake and Output 07/20/19 07/20/19 07/20/19 07:59 15:59 23:59 Intake Total 220 / 340 120 / 340 Output Total 0 / 0 Balance 220 / 340 120 / 340 Intake: IV Fluids 220 / 340 120 / 340 Mefoxin 2,000 MG In Water for 20 / 40 20 / 40 inj. (sterile) 20 ML @ 300 mls/ hr IVP Q8H [facility] Rx#:[id number] Ofirmev 1,000 mg/100 ml 1,000 200 / 300 100 / 300 mg In 100 ml @ 400 mls/hr IVPB Q6HR [facility] Rx#:[id number] Oral 0 / 0 Output: Urine 0 / 0 Other: Meal Lunch Percent of Meal Consumed 5% Stool Size Small Large Stool Consistency loose loose liquid Stool Color Black Black # Bowel Movement Diapers 1 Weight 76 kg Blood Glucose* 127 Patient Weight 07/20/19 23:59 Weight 76 kg - General physical appearance no distress, no pain - Eyes PERRL, normal ocular movement - ENT normal mucosa, no congestion - Neck Neck exam: trachea midline, no lymphadectomy, no venous distension - Respiratory normal respiratory effort, clear to auscultation - Cardiovascular Cardiovascular exam: Present: RRR. Absent: JVD - Abdomen Abdomen: Present: bowel sounds present, soft, non tender - Incision Incision: Present: clean and dry, intact - Neurologic CN 2-12 grossly intact, normal coordination - Musculoskeletal normal posture - Psychiatric oriented to time, oriented to person, oriented to place - Labs 07/20/19 04:36 07/20/19 04:36 Diabetes panel 07/20/19 Range/Units 04:36 Sodium 137 (136-145) mEq/L Potassium 3.5 (3.5-5.1) mEq/L Chloride 107 (98-107) mEq/L Carbon Dioxide 21 L (23-29) mEq/L BUN 19 (8-23) mg/dL Creatinine 0.47 L (0.60-1.20) mg/dL Glucose 130 H (70-105) mg/dL Calcium 8.1 L (8.6-10.3) mg/dL Calcium panel 07/20/19 Range/Units 04:36 Calcium 8.1 L (8.6-10.3) mg/dL Pituitary panel 07/20/19 Range/Units 04:36 Sodium 137 (136-145) mEq/L Potassium 3.5 (3.5-5.1) mEq/L Chloride 107 (98-107) mEq/L Carbon Dioxide 21 L (23-29) mEq/L BUN 19 (8-23) mg/dL Creatinine 0.47 L (0.60-1.20) mg/dL Glucose 130 H (70-105) mg/dL Calcium 8.1 L (8.6-10.3) mg/dL Adrenal panel 07/20/19 Range/Units 04:36 Sodium 137 (136-145) mEq/L Potassium 3.5 (3.5-5.1) mEq/L Chloride 107 (98-107) mEq/L Carbon Dioxide 21 L (23-29) mEq/L BUN 19 (8-23) mg/dL Creatinine 0.47 L (0.60-1.20) mg/dL Glucose 130 H (70-105) mg/dL Calcium 8.1 L (8.6-10.3) mg/dL Consult Discharge Plan - Plan Referrals: NONE,PCP [Primary Care Provider] -
[2019-07-20] MEDS: Fluconazole 200 MG/100 ML 200 MG/100 ML BAG IVPB SCH (18:38)
[2019-07-20] MEDS: traZODone 50 MG TABLET PO SCH (22:03)
[2019-07-21] MEDS: Acetaminophen IV 1,000 MG/100 ML INFUS..BTL IVPB SCH ×3 (03:24→11:29)
[2019-07-21] MEDS: cefOXitin 2,000 MG in Water for inj. (sterile) 20 ML IVP SCH ×3 (03:30→18:06)
[2019-07-21 04:41] LABS: Basophils # 0.1 K/mcL (0.0-0.2); Basophils % 0.4 %; Eosinophils # 0.5 K/mcL (0.0-0.6); Eosinophils % 2.4 %; Hematocrit 22.3 % (35.3-44.9); Hemoglobin 7.4 g/dL (11.5-15.4); Lymphocytes # 0.9 K/mcL (0.6-4.6); Lymphocytes % 4.8 %; Mean Corpuscular HGB Conc 33.2 g/dL (31.6-35.5); Mean Corpuscular Hemoglobin 30.6 pg (28.0-33.3); Mean Corpuscular Volume 92.1 fL (83.0-100.0); Mean Platelet Volume 9.6 fL (9.4-12.4); Monocytes # 1.6 K/mcL (0.0-1.3); Neutrophils # 15.8 K/mcL (1.6-8.9); Nucleated Red Blood Cells 0.8 /100 WBC (0); Platelet Count 456 K/mcL (140-400); Red Blood Count 2.42 M/mcL (3.82-4.97); Red Cell Distribution Width 17.5 % (11.5-14.5); Segmented Neutrophils % 80.4 %; White Blood Count 19.7 K/mcL (4.3-11.1)
[2019-07-21 04:56] LABS: BUN/Creatinine Ratio 26 (6-26); Blood Urea Nitrogen 19 mg/dL (8-23); Calcium 7.9 mg/dL (8.6-10.3); Carbon Dioxide 22 mEq/L (23-29); Chloride 105 mEq/L (98-107); Glucose 126 mg/dL (70-105); Osmolality,Calculated 292 (280-300); Potassium 3.3 mEq/L (3.5-5.1); Sodium 139 mEq/L (136-145); eGFR For African Americans > 60 (> 60); eGFR For Non-African Americans > 60 (> 60)
[2019-07-21] MEDS ORDERED: Potassium Chloride Elixir 20 MEQ/15 ML UDC PO ONE (09:07)
--- NOTE | 2019-07-21 09:10 | AcuteCareSurgery Progress Note ---
Date of Encounter: 07/21/19 Time of Encounter: 07:20 - Assessment and Plan (1) Volvulus of colon Current Visit: Yes Status: Acute The patient is postoperative day 3 from extended right hemicolectomy for cecal volvulus. The patient has leukocytosis likely related to chronic myelogenous leukemia. She is afebrile. She has normal bowel sounds today. Nasogastric tube will be removed and we will restart her oral medicines 07/20/2019. The patient is seen and evaluated on morning rounds with the acute care surgery team. She is not ambulating very well and not participating in physical therapy. I encouraged her to sit up in chair walking the hallway today and this should stimulate her dietary intake. She would benefit from rehabilitation after discharge from the hospital. Subjective Narrative: The patient is seen and evaluated on morning rounds with the acute care surgery team. She is postoperative day 6 from right hemicolectomy for cecal volvulus. She is having bowel movements and good bowel sounds. She is not not eating very much for diet. She is not participating in physical therapy or increased physical activity. I explained to her the absolute necessity of getting up to the chair and walking in the hallway in order to normalize her dietary intake. She would benefit from rehabilitation after discharge Objective Vital Signs - Last 8 Hours Temp Pulse Resp BP Pulse Ox 07/21/19 06:54 98.3 F 98 16 107/60 96 07/21/19 03:16 99.6 F 108 16 136/66 95 Intake and Output 07/20/19 07/21/19 07/21/19 23:59 07:59 15:59 Intake Total 120 / 460 100 / 100 Balance 120 / 460 100 / 100 Intake: IV Fluids 120 / 460 100 / 100 Mefoxin 2,000 MG In Water for inj. (sterile) 20 ML @ 300 mls/ hr IVP Q8H [facility] Rx#:[id number] Ofirmev 1,000 mg/100 ml 1,000 100 / 400 100 / 100 mg In 100 ml @ 400 mls/hr IVPB Q6HR [facility] Rx#:[id number] Oral 0 / 0 Other: Percent of Meal Consumed 0% Stool Size Large Small Stool Consistency loose liquid Stool Color Black Brown # Voids 1 # Urine Diapers 1 Weight 76.1 kg Patient Weight 07/21/19 23:59 Weight 76.1 kg - General physical appearance well developed, well nourished, moderate distress, no pain - Respiratory normal respiratory effort, clear to auscultation - Cardiovascular Cardiovascular exam: Present: RRR, no murmurs/rubs/gallops - Abdomen Abdomen: Present: bowel sounds present, soft, tender (Incisional pain only) - Incision Incision: Present: clean and dry - Integumentary no rash, no growths, no abnormal pigmentation - Neurologic CN 2-12 grossly intact - Psychiatric oriented to time, oriented to person, oriented to place, speech is normal, memory intact - Labs 07/21/19 04:02 07/21/19 04:02 Diabetes panel 07/21/19 Range/Units 04:02 Sodium 139 (136-145) mEq/L Potassium 3.3 L (3.5-5.1) mEq/L Chloride 105 (98-107) mEq/L Carbon Dioxide 22 L (23-29) mEq/L BUN 19 (8-23) mg/dL Creatinine 0.74 (0.60-1.20) mg/dL Glucose 126 H (70-105) mg/dL Calcium 7.9 L (8.6-10.3) mg/dL Calcium panel 07/21/19 Range/Units 04:02 Calcium 7.9 L (8.6-10.3) mg/dL Pituitary panel 07/21/19 Range/Units 04:02 Sodium 139 (136-145) mEq/L Potassium 3.3 L (3.5-5.1) mEq/L Chloride 105 (98-107) mEq/L Carbon Dioxide 22 L (23-29) mEq/L BUN 19 (8-23) mg/dL Creatinine 0.74 (0.60-1.20) mg/dL Glucose 126 H (70-105) mg/dL Calcium 7.9 L (8.6-10.3) mg/dL Adrenal panel 07/21/19 Range/Units 04:02 Sodium 139 (136-145) mEq/L Potassium 3.3 L (3.5-5.1) mEq/L Chloride 105 (98-107) mEq/L Carbon Dioxide 22 L (23-29) mEq/L BUN 19 (8-23) mg/dL Creatinine 0.74 (0.60-1.20) mg/dL Glucose 126 H (70-105) mg/dL Calcium 7.9 L (8.6-10.3) mg/dL Consult Discharge Plan - Plan Referrals: NONE,PCP [Primary Care Provider] -
[2019-07-21] MEDS: Pantoprazole 40 MG VIAL IVP SCH (09:20)
[2019-07-21] MEDS: Diltiazem CD (24hr) 240 MG CAPSULE PO SCH (09:21)
[2019-07-21] MEDS: Loratadine 10 MG TABLET PO SCH (09:21)
[2019-07-21] MEDS: *HR* Rivaroxaban 10 MG TABLET PO SCH (09:21)
[2019-07-21] MEDS ORDERED: *HR* HYDROcodone/Acet 5/325 mg TABLET PO PRN (11:30)
--- NOTE | 2019-07-21 13:54 | Internal Med Progress Note ---
Hospitalist Progress Note - Encounter Date of Encounter: 07/21/19 Time of Encounter: 13:51 - Subjective Interval History: Patient was seen and examined at bedside today. Patient denies any acute issues and concerns overnight. Patient remains afebrile. Patient white count is down trending. Patient white count is normal at baseline for her CML. Patient has tolerated oral diet. Patient has positive and had bowel movements. - Exam Vitals: Temp Pulse Resp BP Pulse Ox 98.4 F 97 15 112/70 94 07/21/19 12:14 07/21/19 12:14 07/21/19 12:14 07/21/19 12:14 07/21/19 12:14 Exam: General: A & O 3, In no acute distress HENNT: PERRLA. Head atraumatic and makes supple, NG tube discontinued tday CVS S1 and S2 regular, no murmur RS: Clear to air entry bilaterally, no wheeze, no crackles Abdomen: No abdominal tenderness. Bowel sounds present. Surgical wound examined. No signs of infection noted. Extremities: No cyanosis, clubbing, and edema Neurology: Cranial 2 through 12 normal. Motor strength 5/5 bilaterally. Sensation intact - Assessment and Plan (1) Volvulus of colon Current Visit: Yes Status: Acute Assessment and Plan: Patient is status post surgery for sigmoid/cecal volvulus postoperative day 6. She has tolerated diet. Patient had positive skin tests and patient had more moment. Patient's white count is down trending. Patient is afebrile. Patiwnt was eaplained the importance of ambulation. Encurageed ambulation with assist as tolerated. Patient had physical therapy and occupational therapy evaluation done. Physical therapy recommended inpatient rehabilitation/swing bed. Anticipate discharge tomorrow. (2) Atrial fibrillation Current Visit: No Status: Chronic Assessment and Plan: Patient's now on her home Cardizem and Xarelto. Continue to monitor. (3) Anemia Current Visit: Yes Status: Acute Assessment and Plan: Likely due to surgical blood loss. Patient has received 2 packed RBC transfusion so far. Hemoglobin today 7.4. We will continue to monitor.. (4) CML (chronic myelocytic leukemia) Current Visit: No Status: Chronic Assessment and Plan: She has known history of CML for which she was completed treatment (5) Peripheral vascular disease Current Visit: No Status: Chronic (6) DVT prophylaxis Current Visit: No Status: Acute Assessment and Plan: Xarelto - Time Spent with Patient Total time spent is greater than 50% in coordination of care (as documented) at patient's floor/unit and/or counseling patient: 25 - 35 minutes Plan of Care Discussed with: patient Internal Medicine: Result - Labs CBC & Chem 7: 07/21/19 04:02 07/21/19 04:02 Labs: Short CBC 07/21/19 Range/Units 04:02 WBC 19.7 H (4.3-11.1) K/mcL Hgb 7.4 L (11.5-15.4) g/dL Hct 22.3 L (35.3-44.9) % Plt Count 456 H (140-400) K/mcL Neutrophils # 15.8 H (1.6-8.9) K/mcL BMP 07/21/19 04:02 Sodium 139 Potassium 3.3 L Chloride 105 Carbon Dioxide 22 L BUN 19 Creatinine 0.74 Glucose 126 H Calcium 7.9 L Consult Discharge Plan - Plan Referrals: NONE,PCP [Primary Care Provider] - (2) Atrial fibrillation Qualifiers: Atrial fibrillation type: paroxysmal Qualified Code(s): I48.0 - Paroxysmal atrial fibrillation (3) Anemia Qualifiers: Other causes of anemia: chronic disease, other
[2019-07-21] MEDS: Ondansetron 4 MG/2 ML VIAL IVP PRN (16:36)
[2019-07-21] MEDS: Metoclopramide 10 MG/2 ML VIAL IVP PRN (18:06)
[2019-07-21] MEDS: Fluconazole 200 MG/100 ML 200 MG/100 ML BAG IVPB SCH (18:07)
[2019-07-21] MEDS ORDERED: Metoclopramide 10 MG/2 ML VIAL IVP ONE (19:49)
[2019-07-21] MEDS: traZODone 50 MG TABLET PO SCH ×2 (20:28→20:37)
[2019-07-21] MEDS ORDERED: Acetaminophen IV 1,000 MG/100 ML INFUS..BTL IVPB ONE (21:19)
[2019-07-21] MEDS ORDERED: Scopolamine Patch 1.5 MG PATCH.TD72 TD ONE (21:33)
[2019-07-21] MEDS ORDERED: Melatonin 3 MG TABLET PO PRN (23:16)
[2019-07-22] MEDS: cefOXitin 2,000 MG in Water for inj. (sterile) 20 ML IVP SCH ×2 (02:42→11:15)
[2019-07-22 04:33] LABS: Hemoglobin 8.2 g/dL (11.5-15.4); Platelet Count 562 K/mcL (140-400)
[2019-07-22 04:34] LABS: Hematocrit 25.4 % (35.3-44.9); Mean Corpuscular HGB Conc 32.3 g/dL (31.6-35.5); Mean Platelet Volume 9.2 fL (9.4-12.4); Monocytes # 2.1 K/mcL (0.0-1.3); Red Blood Count 2.73 M/mcL (3.82-4.97)
[2019-07-22 05:11] LABS: BUN/Creatinine Ratio 23 (6-26); Blood Urea Nitrogen 16 mg/dL (8-23); Calcium 8.4 mg/dL (8.6-10.3); Carbon Dioxide 22 mEq/L (23-29); Chloride 105 mEq/L (98-107); Glucose 119 mg/dL (70-105); Osmolality,Calculated 288 (280-300); Potassium 4.2 mEq/L (3.5-5.1); Sodium 138 mEq/L (136-145); eGFR For African Americans > 60 (> 60); eGFR For Non-African Americans > 60 (> 60)
[2019-07-22 06:02] LABS: Anisocytosis 1+ (Not Present); Lymphocytes # 2.6 K/mcL (0.6-4.6); Macrocytosis Present (Not Present); Neutrophils # 21.3 K/mcL (1.6-8.9); Platelet Estimate Increased (Normal); Polychromasia 1+ (Not Present)
[2019-07-22] MEDS: Diltiazem CD (24hr) 240 MG CAPSULE PO SCH (08:44)
[2019-07-22] MEDS: Pantoprazole 40 MG VIAL IVP SCH (08:44)
[2019-07-22] MEDS: Loratadine 10 MG TABLET PO SCH (08:44)
[2019-07-22] MEDS: *HR* Rivaroxaban 10 MG TABLET PO SCH (08:44)
--- NOTE | 2019-07-22 09:14 | AcuteCareSurgery Progress Note ---
<BrianArely Woo - Last Filed: 07/22/19 09:25> Date of Encounter: 07/22/19 Time of Encounter: 07:30 - Assessment and Plan (1) Cecal volvulus Current Visit: Yes Status: Acute Date of procedure: 07/15/19 Pre-op diagnosis: Volvulus of the colon Post-op diagnosis: other (Cecal volvulus with obstruction) Procedure: Right hemicolectomy Anesthesia: LATONIAA Surgeon: Ross Jacobsen POD #7 as above. Pathology with acute serositis with vascular hyperemia in the subserosa and submucosa, extensively dilated cecum and adjacent ascending colon, consistent with a volvulus with intact mucosa and fibrous obliteration of the lumen of the cecal appendix. She's recovering quite nicely. She is tolerating a diet and having bowel function. She is okay to discharge from a surgical standpoint. She is strongly recommended to go to rehab. Discharge instructions and follow-up information in place discharge plan. Dispo per primary team. Surgery will follow from a distance at this time. Please call or reconsult if any further questions or needs arise. Subjective Patient reports: no new complaints, pain is less, tolerating a regular diet, voiding w/o difficulty, flatus, bowel movement, afebrile Objective Vital Signs - Last 8 Hours Temp Pulse Resp BP Pulse Ox 07/22/19 08:51 97 07/22/19 07:49 98.8 F 97 20 168/78 98 07/22/19 04:47 98.6 F 103 15 146/67 91 Intake and Output 07/21/19 07/22/19 07/22/19 23:59 07:59 15:59 Intake Total 220 / 580 20 / 20 Output Total 0 / 0 Balance 220 / 580 20 / 20 Intake: IV Fluids 220 / 460 20 / 20 Mefoxin 2,000 MG In Water for 20 / 20 inj. (sterile) 20 ML @ 300 mls/ hr IVP Q8H [facility] Rx#:[id number] Ofirmev 1,000 mg/100 ml 1,000 100 / 100 mg In 100 ml @ 400 mls/hr IVPB ONCE ONE Rx#:[id number] Diflucan Premix 200 MG/100 ML 100 / 100 200 mg In 100 ml @ 100 mls/hr IVPB Q24H [facility] Rx#:[id number] Oral 0 / 120 0 / 0 Output: Urine 0 / 0 Other: Stool Size Large Stool Consistency loose Stool Color Brown Black # Voids 1 # Urine Diapers 1 # Bowel Movement Diapers 1 Weight 71.2 kg Patient Weight 07/22/19 23:59 Weight 71.2 kg - General physical appearance no distress, other (thin,frail) - ENT atraumatic, normocephalic - Neck Neck exam: trachea midline - Respiratory normal expansion, normal respiratory effort - Cardiovascular Cardiovascular exam: Present: distant heart sounds (Normal S1,S2) - Abdomen Abdomen: Present: bowel sounds present, soft, tender (expected postoperative) - Incision Incision: Present: clean and dry, intact - Integumentary no rash - Neurologic normal sensation - Musculoskeletal other (generalized deconditioning noted) - Psychiatric oriented to time, oriented to person, oriented to place - Labs 07/22/19 04:14 07/22/19 04:14 Diabetes panel 07/22/19 Range/Units 04:14 Sodium 138 (136-145) mEq/L Potassium 4.2 (3.5-5.1) mEq/L Chloride 105 (98-107) mEq/L Carbon Dioxide 22 L (23-29) mEq/L BUN 16 (8-23) mg/dL Creatinine 0.70 (0.60-1.20) mg/dL Glucose 119 H (70-105) mg/dL Calcium 8.4 L (8.6-10.3) mg/dL Calcium panel 07/22/19 Range/Units 04:14 Calcium 8.4 L (8.6-10.3) mg/dL Pituitary panel 07/22/19 Range/Units 04:14 Sodium 138 (136-145) mEq/L Potassium 4.2 (3.5-5.1) mEq/L Chloride 105 (98-107) mEq/L Carbon Dioxide 22 L (23-29) mEq/L BUN 16 (8-23) mg/dL Creatinine 0.70 (0.60-1.20) mg/dL Glucose 119 H (70-105) mg/dL Calcium 8.4 L (8.6-10.3) mg/dL Adrenal panel 07/22/19 Range/Units 04:14 Sodium 138 (136-145) mEq/L Potassium 4.2 (3.5-5.1) mEq/L Chloride 105 (98-107) mEq/L Carbon Dioxide 22 L (23-29) mEq/L BUN 16 (8-23) mg/dL Creatinine 0.70 (0.60-1.20) mg/dL Glucose 119 H (70-105) mg/dL Calcium 8.4 L (8.6-10.3) mg/dL Consult Discharge Plan - Plan Instructions: Colectomy (DC) Additional Instructions: General Surgical Discharge Instructions 1. No pushing, pulling, or lifting greater than 15 lbs for 6 weeks. 2. You may remove your dressings and shower beginning today, but no tub baths, soaking, or swimming for 2 weeks. 3. No driving until cleared by rehab.. 4. Take 650 mg acetaminophen and apply ice to the abdomen for 20 minutes every hour you are awake. If this does not relieve discomfort, you may take the as needed Hydrocodone, acetaminophen as directed. Eat a small snack with pain medication as this will help reduce the risk of nausea. Take narcotics as directed. Do not take more narcotics then directed and do not share your narcotics with any other person. Do not drink alcohol while on narcotics. You can take the Zofran/ondansetron if needed for nausea or with a dose of narcotics to prevent nausea. 5. Take stool softeners (Colace) or a water based laxative (Miralax) while taking narcotics. You may hold for loose stools. 6. Report any fevers greater than 100.5F, increase abdominal discomfort, drainage that looks like pus, increased redness or pain at the surgical site, or any vomiting. 7. Report any pain in the calves, shortness of breath, or rapid heartbeat. 8. Follow-up in the office as directed. 9. If you were prescribed antibiotics, do not stop them without talking to your provider. Referrals: NONE,PCP [Primary Care Provider] - Arely Torres, FIELD HANDYMAN [Advanced Practice Nurse] - 08/01/19 8:15 am <Ross Jacobsen - Last Filed: 07/22/19 11:29> Date of Encounter: 07/22/19 - Assessment and Plan (1) Volvulus of colon Current Visit: Yes Status: Acute Objective Vital Signs - Last 8 Hours Temp Pulse Resp BP Pulse Ox 07/22/19 08:51 97 07/22/19 07:49 98.8 F 97 20 168/78 98 07/22/19 04:47 98.6 F 103 15 146/67 91 Intake and Output 07/21/19 07/22/19 07/22/19 23:59 07:59 15:59 Intake Total 220 / 580 Output Total 0 / 0 Balance 220 / 580 20 Intake: IV Fluids 220 / 460 20 / 20 Mefoxin 2,000 MG In Water for inj. (sterile) 20 ML @ 300 mls/ hr IVP Q8H [facility] Rx#:[id number] Ofirmev 1,000 mg/100 ml 1,000 100 / 100 mg In 100 ml @ 400 mls/hr IVPB ONCE ONE Rx#:[id number] Diflucan Premix 200 MG/100 ML 100 / 100 200 mg In 100 ml @ 100 mls/hr IVPB Q24H [facility] Rx#:[id number] Oral 0 / 120 0 / 0 Output: Urine 0 / 0 Other: Stool Size Large Large Stool Consistency loose loose Stool Characteristics Pasty Stool Color Brown Brown Black # Voids 1 # Urine Diapers 1 # Bowel Movement Diapers 1 Weight 71.2 kg Patient Weight 07/22/19 23:59 Weight 71.2 kg - Labs 07/22/19 04:14 07/22/19 04:14 Diabetes panel 07/22/19 Range/Units 04:14 Sodium 138 (136-145) mEq/L Potassium 4.2 (3.5-5.1) mEq/L Chloride 105 (98-107) mEq/L Carbon Dioxide 22 L (23-29) mEq/L BUN 16 (8-23) mg/dL Creatinine 0.70 (0.60-1.20) mg/dL Glucose 119 H (70-105) mg/dL Calcium 8.4 L (8.6-10.3) mg/dL Calcium panel 07/22/19 Range/Units 04:14 Calcium 8.4 L (8.6-10.3) mg/dL Pituitary panel 07/22/19 Range/Units 04:14 Sodium 138 (136-145) mEq/L Potassium 4.2 (3.5-5.1) mEq/L Chloride 105 (98-107) mEq/L Carbon Dioxide 22 L (23-29) mEq/L BUN 16 (8-23) mg/dL Creatinine 0.70 (0.60-1.20) mg/dL Glucose 119 H (70-105) mg/dL Calcium 8.4 L (8.6-10.3) mg/dL Adrenal panel 07/22/19 Range/Units 04:14 Sodium 138 (136-145) mEq/L Potassium 4.2 (3.5-5.1) mEq/L Chloride 105 (98-107) mEq/L Carbon Dioxide 22 L (23-29) mEq/L BUN 16 (8-23) mg/dL Creatinine 0.70 (0.60-1.20) mg/dL Glucose 119 H (70-105) mg/dL Calcium 8.4 L (8.6-10.3) mg/dL - Attending Attestation I have personally performed a face to face evaluation on this patient. I have reviewed and agree with the care plan. History and Exam by me shows: The patient is seen and evaluated on morning rounds with the acute care surgery team. She is had successful resection of cecal volvulus. She now has bowel activity. She is ready for rehabilitation placement. Ross Jacobsen MD FACS
--- NOTE | 2019-07-22 14:28 | Discharge Summary ---
- NOTES TO OUTPATIENT PROVIDER Notes to Outpatient Provider: Patient presented to the hospital due to abdominal pain. Upon evaluation patient found to have sigmoid and cecal bolus. Patient is status post surgery postoperative day 7. Patient is getting discharged to inpatient rehabilitation/swing bed. Follow-up the patient within 1 week. Pt follow-up with oncology Follow up with surgery in 2 weeks. Orders not resulted at time of discharge: Pending orders 07/18/19 19:30 Culture,Blood [BC] Stat Date of Encounter: 07/22/19 Time of Encounter: 14:26 - Discharge Diagnosis (1) Volvulus of colon Priority: Primary Status: Acute (2) Atrial fibrillation Priority: Secondary Status: Chronic Qualifiers: Atrial fibrillation type: paroxysmal Qualified Code(s): I48.0 - Paroxysmal atrial fibrillation (3) Anemia Priority: Secondary Status: Acute Qualifiers: Anemia type: other cause Other causes of anemia: chronic disease, other Qualified Code(s): D63.8 - Anemia in other chronic diseases classified elsewhere (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 Bueno is a 79 year old female was hospitalized for abdominal pain due to cecal volvulus. Patient underwent right-sided hemicolectomy. Patient was discharged on postoperative day 7. She was discharged in stable condition. Patient is to follow-up with oncology for her CML. Follow-up with primary care provider within one week. Patient is to follow-up with surgery in 2 weeks. Discharge discussed with: patient, family, nurse, social work, case management, risk control consultant - Time Spent with Patient Total time spent providing and/or coordinating discharge services: 45 Time spent: Greater than 30 minutes - Discharge Medications Prescriptions: New HYDROcodone/Acet 5/325 mg [[place] 5-325 mg] 1 tab PO Q6HR PRN 7 Days #30 tablet PRN Reason: Analgesia Continued Acetaminophen [Tylenol] 500 mg PO Q6HR PRN PRN Reason: Pain Pravastatin Sodium [Pravachol] 40 mg PO HS Metoprolol [Lopressor] 25 mg PO BID Rivaroxaban [Xarelto] 20 mg PO DAILY Ferrous Sulfate [Iron] 325 mg PO DAILY #30 tablet Cilostazol [Pletal] 100 mg PO BID traZODone [TraZODone] 100 mg PO HS Cyclobenzaprine [Flexeril] 10 mg PO TID Cetirizine HCl [Zyrtec] 10 mg PO DAILY Diltiazem CD (24hr) [Cardizem CD] 240 mg PO DAILY Linaclotide [Linzess] 72 mcg PO DAILY Home Medications: Acetaminophen [Tylenol] 500 mg PO Q6HR PRN 05/14/18 [History] Pravastatin Sodium [Pravachol] 40 mg PO HS 05/14/18 [History] Metoprolol [Lopressor] 25 mg PO BID 06/03/18 [History] Rivaroxaban [Xarelto] 20 mg PO DAILY 06/03/18 [History] Ferrous Sulfate [Iron] 325 mg PO DAILY #30 tablet 06/13/18 [Rx] Cilostazol [Pletal] 100 mg PO BID 01/29/19 [History] Cetirizine HCl [Zyrtec] 10 mg PO DAILY 07/15/19 [History] Cyclobenzaprine [Flexeril] 10 mg PO TID 07/15/19 [History] Diltiazem CD (24hr) [Cardizem CD] 240 mg PO DAILY 07/15/19 [History] Linaclotide [Linzess] 72 mcg PO DAILY 07/15/19 [History] traZODone [TraZODone] 100 mg PO HS 07/15/19 [History] HYDROcodone/Acet 5/325 mg [[place] 5-325 mg] 1 tab PO Q6HR PRN 7 Days #30 tablet 07/22/19 [Rx] Allergies/Adverse Reactions: Allergy/AdvReac Type Severity Reaction Status Date / Time amantadine AdvReac Itching Verified 07/15/19 10:06 Phenothiazines AdvReac Itching Verified 07/15/19 10:06 promethazine AdvReac Itching Verified 07/15/19 10:06 Date of admission: 07/15/19 03:19 Primary care physician: PCP NONE Consults: 07/19/19 09:25 Consult to Physical Therapy [CONS] Routine Comment: Evaluate, develop and implement POC Reason for Consult: post op deconditioning Does patient have active BEDREST order?: No Is patient medically & hemodynamically stable?: Yes Patient assessed for mobility or mobilized this visit?: No 07/19/19 09:26 Consult to Occupational Therapy [CONS] Routine Comment: Evaluate, develop and implement POC Reason for Consult: post-op deconditioning Does patient have active BEDREST order?: No Is patient medically & hemodynamically stable?: Yes Patient assessed for mobility or mobilized this visit?: No 07/20/19 17:22 Consult to Case Management [CONS] Routine Comment: DC planning Discharging clinician: Wilfred Quintero - Constitutional Vitals: Temp Pulse Resp BP Pulse Ox 98.7 F 112 20 148/75 91 07/22/19 12:11 07/22/19 12:11 07/22/19 12:11 07/22/19 12:11 07/22/19 12:11 General appearance: Present: cooperative, A&O X 3 Exam: General: A & O 3, In no acute distress HENNT: PERRLA. Head atraumatic and makes supple, NG tube discontinued tday CVS S1 and S2 regular, no murmur RS: Clear to air entry bilaterally, no wheeze, no crackles Abdomen: No abdominal tenderness. Bowel sounds present. Surgical wound examined. No signs of infection noted. Extremities: No cyanosis, clubbing, and edema Neurology: Cranial 2 through 12 normal. Motor strength 5/5 bilaterally. Sensation intact - Patient Status Disposition: Transfer Inpatient Rehab Fac Condition: Good Functional capacity at discharge: uses cane/walker Overall status at discharge: patient is progressing back to baseline - Discharge Instructions Instructions: Colectomy (DC) Follow Up With: Arely Torres CNP [Advanced Practice Nurse] - 08/01/19 8:15 am NONE,PCP [Primary Care Provider] - Additional Instructions: General Surgical Discharge Instructions 1. No pushing, pulling, or lifting greater than 15 lbs for 6 weeks. 2. You may remove your dressings and shower beginning today, but no tub baths, soaking, or swimming for 2 weeks. 3. No driving until cleared by rehab.. 4. Take 650 mg acetaminophen and apply ice to the abdomen for 20 minutes every hour you are awake. If this does not relieve discomfort, you may take the as needed Hydrocodone, acetaminophen as directed. Eat a small snack with pain medication as this will help reduce the risk of nausea. Take narcotics as directed. Do not take more narcotics then directed and do not share your narcotics with any other person. Do not drink alcohol while on narcotics. You can take the Zofran/ondansetron if needed for nausea or with a dose of narcotics to prevent nausea. 5. Take stool softeners (Colace) or a water based laxative (Miralax) while taking narcotics. You may hold for loose stools. 6. Report any fevers greater than 100.5F, increase abdominal discomfort, drainage that looks like pus, increased redness or pain at the surgical site, or any vomiting. 7. Report any pain in the calves, shortness of breath, or rapid heartbeat. 8. Follow-up in the office as directed. 9. If you were prescribed antibiotics, do not stop them without talking to your provider. - Diet and Activity Activity: as per physical therapy Diet: diabetic diet, low salt diet
--- NOTE | 2019-07-22 14:45 | Physician Discharge Referral ---
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 (5) Peripheral vascular disease Priority: Secondary Status: Chronic (6) DVT prophylaxis Priority: Secondary Status: Acute Prognosis: Good Aware of Diagnosis: Patient, Family Aware of Prognosis: Patient, Family - Transfer Medications Prescriptions: HYDROcodone/Acet 5/325 mg [[place] 5-325 mg] 1 tab PO Q6HR PRN 7 Days #30 tablet PRN Reason: Analgesia Home Medications: Acetaminophen [Tylenol] 500 mg PO Q6HR PRN 05/14/18 [History] Pravastatin Sodium [Pravachol] 40 mg PO HS 05/14/18 [History] Metoprolol [Lopressor] 25 mg PO BID 06/03/18 [History] Rivaroxaban [Xarelto] 20 mg PO DAILY 06/03/18 [History] Ferrous Sulfate [Iron] 325 mg PO DAILY #30 tablet 06/13/18 [Rx] Cilostazol [Pletal] 100 mg PO BID 01/29/19 [History] Cetirizine HCl [Zyrtec] 10 mg PO DAILY 07/15/19 [History] Cyclobenzaprine [Flexeril] 10 mg PO TID 07/15/19 [History] Diltiazem CD (24hr) [Cardizem CD] 240 mg PO DAILY 07/15/19 [History] Linaclotide [Linzess] 72 mcg PO DAILY 07/15/19 [History] traZODone [TraZODone] 100 mg PO HS 07/15/19 [History] HYDROcodone/Acet 5/325 mg [[place] 5-325 mg] 1 tab PO Q6HR PRN 7 Days #30 tablet 07/22/19 [Rx] Allergies/Adverse Reactions: Allergy/AdvReac Type Severity Reaction Status Date / Time amantadine AdvReac Itching Verified 07/15/19 10:06 Phenothiazines AdvReac Itching Verified 07/15/19 10:06 promethazine AdvReac Itching Verified 07/15/19 10:06 - Respiratory Orders Oxygen / L per min (2L/min titrate down as tolerated) Smoking Cessation: Smoking cessation has been advised. For more information, call the [place] Tobacco Quit Line at 1-507-SGUP-NOW. - Advance Directives Code Status: Full Code - Mobility Orders Ambulate - Rehabiliation Orders Rehab Potential: Good Rehab Orders: ROM Exercises, Evaluation for Physical Therapy, Evaluation for Occupational Therapy - Diet Orders No Added Salt (ASA) CERTIFICATION: I certify that the transfer of the above named patient to an Extended Care Facility is necessary for the continuing treatment of the diagnosis listed. The above information is true and accurate reflection of patient's current condition. Confidential - Redisclosure prohibited without a patient's written consent.
[2019-07-22 15:16] VITALS: BP 144/71
[2019-07-22] MEDS ORDERED: Ondansetron ODT 4 MG TAB.RAPDIS SL ONE (16:53)
== END 2019-07-22 17:20 | disposition other institution (70) | DRG 330 ==
LOC: ICNU → SUATTDRO 07-15 03:19 → 3ANU 07-18 11:51
PROVIDERS: ADMIT Pediatrics; ATTEND Family Medicine

== ENCOUNTER 2019-07-27 16:42 | Inpatient (IN) ==
--- NOTE | 2019-07-27 19:17 | Acute Care Surgery H&P ---
Date of Encounter: 07/27/19 Time of Encounter: 21:00 Assessment and Plan (1) Failure to thrive in adult Current Visit: Yes Status: Acute The assessment and plan as outlined above was discussed with the patient and/or family members who expressed understanding and agreement. All questions were answered. She is not recovering well from her recent surgery. She is not eating well and appears malnourished and (2) Diarrhea Current Visit: Yes Status: Acute The assessment and plan as outlined above was discussed with the patient and/or family members who expressed understanding and agreement. All questions were answered. The patient has onset watery diarrhea after colon surgery. This is persistent. We suspected C. difficile infection Qualifiers: Diarrhea type: presumed infectious Qualified Code(s): R19.7 - Diarrhea, unspecified History of Present Illness Chief complaint: Intermittent vomiting and malaise. HPI: Ms. Bueno is a 79 year old female Who recently underwent right hemicolectomy for cecal volvulus. Since she has gone to rehabilitation she has been experiencing diarrhea and intermittent nausea and vomiting. She has not tolerated diet very well. She denies shakes chills or fever. She does say that she has crampy abdominal discomfort followed by watery diarrhea. She sought evaluation in [place] [facility] [place]. A CAT scan demonstrated some dilated small bowel and a small bowel obstruction was diagnosed. I disagree with this clinical assessment. The patient had dilated small bowel prior to her surgery and this obviously has not recovered yet. She has continuous diarrhea more consistent with C. difficile infection. We will test her stool for C. difficile and initiate therapy after testing is complete. We will continue workup for failure to thrive Past Med Surg Social Fam HX - Past Medical History Medical history: atrial fibrillation, cancer (CML in remission), GERD, hypertension, other (Peripheral vascular disease) Additional medical history: CML, PVD Psychiatric history: no psych history - Past Surgical History Surgical History: cholecystectomy Additional surgical history: back surgery, stent in r leg - Social History Smoking Status: Former smoker Smokeless Tobacco Status: No Alcohol use: none Drug use: none - Family History Mother Living Status: Hx Family Endocrine Disorder: Yes (DM) Hx Family Neuromuscular Disorders: Yes (CVA) Father Living Status: Hx Family Cancer: Yes Medications and Allergies Acetaminophen [Tylenol] 500 mg PO Q6HR PRN 05/14/18 [History] Pravastatin Sodium [Pravachol] 40 mg PO HS 05/14/18 [History] Metoprolol [Lopressor] 25 mg PO BID 06/03/18 [History] Rivaroxaban [Xarelto] 20 mg PO DAILY 06/03/18 [History] Ferrous Sulfate [Iron] 325 mg PO DAILY #30 tablet 06/13/18 [Rx] Cilostazol [Pletal] 100 mg PO BID 01/29/19 [History] Cetirizine HCl [Zyrtec] 10 mg PO DAILY 07/15/19 [History] Cyclobenzaprine [Flexeril] 10 mg PO TID 07/15/19 [History] Diltiazem CD (24hr) [Cardizem CD] 240 mg PO DAILY 07/15/19 [History] Linaclotide [Linzess] 72 mcg PO DAILY 07/15/19 [History] traZODone [TraZODone] 100 mg PO HS 07/15/19 [History] HYDROcodone/Acet 5/325 mg [[place] 5-325 mg] 1 tab PO Q6HR PRN 7 Days #30 tablet 07/22/19 [Rx] Allergy/AdvReac Type Severity Reaction Status Date / Time amantadine AdvReac Itching Verified 07/15/19 10:06 Phenothiazines AdvReac Itching Verified 07/15/19 10:06 promethazine AdvReac Itching Verified 07/15/19 10:06 Review of Systems All systems PM: The remainder of the systems were reviewed and are negative General Surgery Exam - General physical appearance moderate distress, chronically ill, other (Frail) - Neck no masses, no bruits, trachea midline, no lymphadectomy, no venous distension - Respiratory normal expansion, normal respiratory effort, clear to auscultation - Cardiovascular Cardiovascular exam: Present: RRR, no murmurs/rubs/gallops - Abdomen Abdomen general surgery: Present: bowel sounds present (Sounds are hyperactive), soft, distended (Mildly distended) - Neurologic Present: CN 2-12 grossly intact, normal coordination, normal sensation - Psychiatric Psychiatric general surgery: Present: appropriate, oriented to person, oriented to place, oriented to time, speech is normal, memory intact Results - Labs All other labs normal.
[2019-07-27] MEDS: 0.9 % Sodium Chloride 1,000 ML IVC SCH (21:17)
[2019-07-27] MEDS: MetroNIDAZOLE 500 MG/100 ML 500 MG/100 ML BAG IVPB SCH (23:51)
[2019-07-28] MEDS: *HR* HYDROcodone/Acet 5/325 mg TABLET PO PRN ×2 (00:13→08:12)
[2019-07-28 05:08] LABS: Hematocrit 23.1 % (35.3-44.9); Hemoglobin 7.3 g/dL (11.5-15.4); Mean Corpuscular HGB Conc 31.6 g/dL (31.6-35.5); Mean Corpuscular Hemoglobin 30.5 pg (28.0-33.3); Mean Corpuscular Volume 96.7 fL (83.0-100.0); Mean Platelet Volume 9.3 fL (9.4-12.4); Platelet Count 592 K/mcL (140-400); Red Blood Count 2.39 M/mcL (3.82-4.97); Red Cell Distribution Width 18.7 % (11.5-14.5); White Blood Count 18.5 K/mcL (4.3-11.1)
[2019-07-28 05:24] LABS: BUN/Creatinine Ratio 23 (6-26); Blood Urea Nitrogen 14 mg/dL (8-23); Calcium 7.9 mg/dL (8.6-10.3); Carbon Dioxide 29 mEq/L (23-29); Chloride 102 mEq/L (98-107); Glucose 108 mg/dL (70-105); Osmolality,Calculated 283 (280-300); Potassium 3.7 mEq/L (3.5-5.1); Sodium 136 mEq/L (136-145); eGFR For African Americans > 60 (> 60); eGFR For Non-African Americans > 60 (> 60)
[2019-07-28] MEDS ORDERED: *HR* Heparin 5,000 UNIT/ML VIAL SQ SCH (06:00)
[2019-07-28] MEDS: Diltiazem CD (24hr) 240 MG CAPSULE PO SCH (08:00)
[2019-07-28] MEDS: MetroNIDAZOLE 500 MG/100 ML 500 MG/100 ML BAG IVPB SCH ×3 (08:00→23:51)
[2019-07-28] MEDS: Loratadine 10 MG TABLET PO SCH (08:01)
[2019-07-28] MEDS: 0.9 % Sodium Chloride 1,000 ML IVC SCH ×2 (08:12→23:51)
[2019-07-28] MEDS ORDERED: LINACLOTIDE 72 MCG PO SCH (09:00)
--- NOTE | 2019-07-28 11:01 | AcuteCareSurgery Progress Note ---
Date of Encounter: 07/28/19 Time of Encounter: 07:00 - Assessment and Plan (1) Nausea & vomiting Current Visit: Yes Status: Acute S/P right hemicolectomy for obstruction secondary to cecal volvulus. Her volulus condition was chronic pre-op as Kyle's bands were identified at the time of surgery. 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 Therefore, will treat diarrhea with immodium and fiber. Stool was tested for c diff and was neg. Stool culture pending. 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 Expect increased colon transit as pt readjusts. Will continue IV Flagyl d/t elevated WBC (pt with CLL; baseline 11-12). Continue Linzess and add Immodium and fiber. Qualifiers: Vomiting Intractability: non-intractable Qualified Code(s): R11.2 - Nausea with vomiting, unspecified (2) Diarrhea Current Visit: No Status: Acute Qualifiers: Diarrhea type: unspecified type Qualified Code(s): R19.7 - Diarrhea, unspecified (3) S/P right hemicolectomy Current Visit: No Status: Acute Post-op condition is as expected (4) Atrial fibrillation Current Visit: No Status: Chronic Continue home meds with Xarelto and Cardizem Qualifiers: Atrial fibrillation type: paroxysmal Qualified Code(s): I48.0 - Paroxysmal atrial fibrillation Subjective Patient reports: no new complaints, feels better, pain is less Narrative: S/P right hemicolectomy for obstruction secondary to cecal volvulus. Her volulus condition was chronic pre-op as Kyle's bands were identified at the time of surgery. 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 She denies any further nausea or vomiting since admission. Objective Vital Signs - Last 8 Hours Temp Pulse Resp BP Pulse Ox 07/28/19 10:27 97.9 F 80 15 104/67 96 07/28/19 07:44 97.9 F 86 18 117/66 99 07/28/19 04:39 98 F 84 17 122/61 97 Intake and Output 07/27/19 07/28/19 07/28/19 23:59 07:59 15:59 Intake Total 0 / 0 250 / 1250 1000 / 1250 Output Total 0 / 0 Balance 0 / 0 250 / 1250 1000 / 1250 Intake: IV Fluids 100 / 1100 1000 / 1100 0.9 % Sodium Chloride 1,000 ML 1000 / 1000 @ 75 mls/hr IVC .[id number] [facility] Rx #:[id number] Flagyl Premix 500 MG/100 ML 500 100 / 100 mg In 100 ml @ 100 mls/hr IVPB Q8HR [facility] Rx#:[id number] Oral 0 / 0 150 / 150 Output: Urine 0 / 0 Other: Stool Size Moderate Stool Consistency liquid Stool Color Black # Bowel Movement Diapers 1 Weight 70 kg - General physical appearance no distress, no pain - Eyes PERRL, normal ocular movement - ENT no congestion, dry mucosa - Neck Neck exam: trachea midline, no venous distension - Respiratory normal respiratory effort, clear to auscultation - Cardiovascular Cardiovascular exam: Present: RRR. Absent: JVD - Abdomen Abdomen: Present: bowel sounds present, soft, non tender - Incision Incision: Present: clean and dry, intact - Neurologic CN 2-12 grossly intact, normal coordination - Musculoskeletal normal posture - Psychiatric oriented to time, oriented to person, oriented to place - Labs 07/28/19 04:49 07/28/19 04:49 Diabetes panel 07/28/19 Range/Units 04:49 Sodium 136 (136-145) mEq/L Potassium 3.7 (3.5-5.1) mEq/L Chloride 102 (98-107) mEq/L Carbon Dioxide 29 (23-29) mEq/L BUN 14 (8-23) mg/dL Creatinine 0.61 (0.60-1.20) mg/dL Glucose 108 H (70-105) mg/dL Calcium 7.9 L (8.6-10.3) mg/dL Calcium panel 07/28/19 Range/Units 04:49 Calcium 7.9 L (8.6-10.3) mg/dL Pituitary panel 07/28/19 Range/Units 04:49 Sodium 136 (136-145) mEq/L Potassium 3.7 (3.5-5.1) mEq/L Chloride 102 (98-107) mEq/L Carbon Dioxide 29 (23-29) mEq/L BUN 14 (8-23) mg/dL Creatinine 0.61 (0.60-1.20) mg/dL Glucose 108 H (70-105) mg/dL Calcium 7.9 L (8.6-10.3) mg/dL Adrenal panel 07/28/19 Range/Units 04:49 Sodium 136 (136-145) mEq/L Potassium 3.7 (3.5-5.1) mEq/L Chloride 102 (98-107) mEq/L Carbon Dioxide 29 (23-29) mEq/L BUN 14 (8-23) mg/dL Creatinine 0.61 (0.60-1.20) mg/dL Glucose 108 H (70-105) mg/dL Calcium 7.9 L (8.6-10.3) mg/dL Consult Discharge Plan - Plan Referrals: Del Caceres DO [Primary Care Provider] -
[2019-07-28] MEDS: Psyllium 1 PACKET POWD.PACK PO SCH ×3 (12:07→22:22)
[2019-07-28] MEDS: *HR* Rivaroxaban 10 MG TABLET PO SCH (16:04)
[2019-07-28] MEDS: Ondansetron 4 MG/2 ML VIAL IVP PRN (19:05)
[2019-07-28] MEDS: traZODone 50 MG TABLET PO SCH (22:23)
[2019-07-29] MEDS: *HR* HYDROcodone/Acet 5/325 mg TABLET PO PRN (00:54)
[2019-07-29 03:21] LABS: Basophils # 0.1 K/mcL (0.0-0.2); Basophils % 0.3 %; Eosinophils # 0.3 K/mcL (0.0-0.6); Eosinophils % 1.6 %; Hematocrit 23.5 % (35.3-44.9); Hemoglobin 7.3 g/dL (11.5-15.4); Immature Granulocytes % 1.8 % (0-4); Lymphocytes % 5.7 %; Mean Corpuscular HGB Conc 31.1 g/dL (31.6-35.5); Mean Corpuscular Hemoglobin 30.4 pg (28.0-33.3); Mean Corpuscular Volume 97.9 fL (83.0-100.0); Mean Platelet Volume 9.5 fL (9.4-12.4); Monocytes # 1.5 K/mcL (0.0-1.3); Monocytes % 8.4 %; Nucleated Red Blood Cells 0.4 /100 WBC (0); Platelet Count 663 K/mcL (140-400); Red Cell Distribution Width 18.1 % (11.5-14.5); Segmented Neutrophils % 82.2 %; White Blood Count 18.2 K/mcL (4.3-11.1)
[2019-07-29 03:28] LABS: BUN/Creatinine Ratio 20 (6-26); Blood Urea Nitrogen 13 mg/dL (8-23); Calcium 7.9 mg/dL (8.6-10.3); Carbon Dioxide 26 mEq/L (23-29); Chloride 102 mEq/L (98-107); Glucose 97 mg/dL (70-105); Osmolality,Calculated 284 (280-300); Potassium 3.5 mEq/L (3.5-5.1); Sodium 137 mEq/L (136-145); eGFR For African Americans > 60 (> 60); eGFR For Non-African Americans > 60 (> 60)
[2019-07-29] MEDS: MetroNIDAZOLE 500 MG/100 ML 500 MG/100 ML BAG IVPB SCH ×2 (08:10→17:22)
[2019-07-29] MEDS: Diltiazem CD (24hr) 240 MG CAPSULE PO SCH (08:11)
[2019-07-29] MEDS: Loratadine 10 MG TABLET PO SCH (08:11)
[2019-07-29] MEDS: Psyllium 1 PACKET POWD.PACK PO SCH (08:11)
[2019-07-29 08:39] LABS: Magnesium 1.6 mg/dL (1.6-2.6)
[2019-07-29] MEDS ORDERED: Lidocaine -MPF 1% 5 ML AMPUL INFILT ONE (09:29)
[2019-07-29] MEDS ORDERED: *HR* Dextrose 50 % in Water (Syg) 50 ML SYRINGE IVP PRN (09:30)
[2019-07-29] MEDS ORDERED: D5% in Water 1,000 ML IVC PRN (09:30)
[2019-07-29] MEDS ORDERED: Dextrose Gel 15 GM/37.5 ML TUBE PO PRN ×2 (09:30)
[2019-07-29] MEDS: Ondansetron 4 MG/2 ML VIAL IVP PRN ×2 (09:48→18:56)
[2019-07-29] MEDS ORDERED: D10% in Water 500 ML IVC PRN (10:04)
--- NOTE | 2019-07-29 10:54 | AcuteCareSurgery Progress Note ---
<Arely Torres - Last Filed: 07/29/19 11:17> Date of Encounter: 07/29/19 Time of Encounter: 07:15 - Assessment and Plan (1) Nausea & vomiting Current Visit: Yes Status: Acute Pt reports nausea is improved; however, she still has no appetite. We will start clear liquid diet with protein supplement but also add TPN she has been prolonged length of time without nutrition titrate IV fluids to TPN goal. Stop IV fluids when TPN is at goal. Repeat a.m. labs Q6 Accu checks sliding scale insulin continue to closely monitor add scopolamine patch Qualifiers: Vomiting type: unspecified Vomiting Intractability: non-intractable Qualified Code(s): R11.2 - Nausea with vomiting, unspecified (2) Diarrhea Current Visit: Yes Status: Chronic C-diff negative Stop Linzess Continue Fiber therapy (but switch to fibercon tabs as pt is not drinking enough for the metamucil), continue prn immodium Qualifiers: Diarrhea type: unspecified type Qualified Code(s): R19.7 - Diarrhea, unspecified (3) S/P right hemicolectomy Current Visit: No Status: Chronic see above patricia can be removed 07/31/2019 (4) Atrial fibrillation Current Visit: No Status: Chronic Continue current therapy Qualifiers: Atrial fibrillation type: paroxysmal Qualified Code(s): I48.0 - Paroxysmal atrial fibrillation (5) 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 Continue Flagyl in the interim. Repeat a.m. labs. Can de-escalate pending. (6) Physical deconditioning Current Visit: Yes Status: Acute TPN PT and OT return to rehab when appropriate (7) Protein-calorie malnutrition, moderate Current Visit: Yes Status: Acute tpn CLD with protein supplement Subjective Patient reports: no new complaints, feels better, pain is less, voiding w/o difficulty, flatus, bowel movement, afebrile Objective Vital Signs - Last 8 Hours Temp Pulse Resp BP Pulse Ox 07/29/19 07:14 98.1 F 94 18 137/64 97 07/29/19 03:09 98.1 F 89 15 106/57 95 Intake and Output 07/28/19 07/29/19 07/29/19 23:59 07:59 15:59 Intake Total 1100 / 2450 100 / 100 Balance 1100 / 2450 100 / 100 Intake: IV Fluids 1100 / 2300 100 / 100 0.9 % Sodium Chloride 1,000 ML 1000 / 2000 @ 75 mls/hr IVC .[id number] [facility] Rx #:[id number] Flagyl Premix 500 MG/100 ML 500 100 / 300 100 / 100 mg In 100 ml @ 100 mls/hr IVPB Q8HR [facility] Rx#:[id number] Other: Meal NPO Stool Size Small Stool Consistency loose Stool Color Black # Urine Diapers 1 Weight 72 kg Blood Glucose* 90 86 Patient Weight 07/29/19 23:59 Weight 72 kg - General physical appearance no distress, chronically ill - ENT atraumatic, normocephalic - Neck Neck exam: trachea midline - Respiratory other (decreased resp effort and breath sounds) - Cardiovascular Cardiovascular exam: Present: RRR - Abdomen Abdomen: Present: bowel sounds present, soft, tender (expected postoperative) - Incision Incision: Present: clean and dry, intact - Integumentary no rash - Neurologic normal sensation - Musculoskeletal normal posture - Psychiatric oriented to time, oriented to person, oriented to place - Labs 07/29/19 02:43 07/29/19 02:43 Diabetes panel 07/29/19 Range/Units 02:43 Sodium 137 (136-145) mEq/L Potassium 3.5 (3.5-5.1) mEq/L Chloride 102 (98-107) mEq/L Carbon Dioxide 26 (23-29) mEq/L BUN 13 (8-23) mg/dL Creatinine 0.64 (0.60-1.20) mg/dL Glucose 97 (70-105) mg/dL Calcium 7.9 L (8.6-10.3) mg/dL Calcium panel 07/29/19 Range/Units 02:43 Calcium 7.9 L (8.6-10.3) mg/dL Phosphorus 4.0 (2.7-4.5) mg/dL Pituitary panel 07/29/19 Range/Units 02:43 Sodium 137 (136-145) mEq/L Potassium 3.5 (3.5-5.1) mEq/L Chloride 102 (98-107) mEq/L Carbon Dioxide 26 (23-29) mEq/L BUN 13 (8-23) mg/dL Creatinine 0.64 (0.60-1.20) mg/dL Glucose 97 (70-105) mg/dL Calcium 7.9 L (8.6-10.3) mg/dL Adrenal panel 07/29/19 Range/Units 02:43 Sodium 137 (136-145) mEq/L Potassium 3.5 (3.5-5.1) mEq/L Chloride 102 (98-107) mEq/L Carbon Dioxide 26 (23-29) mEq/L BUN 13 (8-23) mg/dL Creatinine 0.64 (0.60-1.20) mg/dL Glucose 97 (70-105) mg/dL Calcium 7.9 L (8.6-10.3) mg/dL Consult Discharge Plan - Plan Referrals: Del Caceres DO [Primary Care Provider] - <Ross Jacobsen - Last Filed: 07/29/19 15:12> Date of Encounter: 07/29/19 - Assessment and Plan (1) Failure to thrive in adult Current Visit: Yes Status: Acute (2) Diarrhea Current Visit: Yes Status: Acute Qualifiers: Diarrhea type: presumed infectious Qualified Code(s): R19.7 - Diarrhea, unspecified Objective Vital Signs - Last 8 Hours Temp Pulse Resp BP Pulse Ox 07/29/19 13:46 99.5 F 07/29/19 12:02 98.6 F 88 14 127/64 96 07/29/19 07:14 98.1 F 94 18 137/64 97 Intake and Output 07/28/19 07/29/19 07/29/19 23:59 07:59 15:59 Intake Total 1100 / 2450 100 / 100 0 / 100 Balance 1100 / 2450 100 / 100 0 / 100 Intake: IV Fluids 1100 / 2300 100 / 100 0.9 % Sodium Chloride 1,000 ML 1000 / 2000 @ 75 mls/hr IVC .[id number] [facility] Rx #:[id number] Flagyl Premix 500 MG/100 ML 500 100 / 300 100 / 100 mg In 100 ml @ 100 mls/hr IVPB Q8HR [facility] Rx#:[id number] Oral 0 / 0 Other: Meal NPO NPO Stool Size Small Stool Consistency loose Stool Color Black # Urine Diapers 1 1 # Bowel Movement Diapers 0 Weight 72 kg Blood Glucose* 90 86 80 Patient Weight 07/29/19 23:59 Weight 72 kg - Labs 07/29/19 02:43 07/29/19 02:43 Diabetes panel 07/29/19 Range/Units 02:43 Sodium 137 (136-145) mEq/L Potassium 3.5 (3.5-5.1) mEq/L Chloride 102 (98-107) mEq/L Carbon Dioxide 26 (23-29) mEq/L BUN 13 (8-23) mg/dL Creatinine 0.64 (0.60-1.20) mg/dL Glucose 97 (70-105) mg/dL Calcium 7.9 L (8.6-10.3) mg/dL Calcium panel 07/29/19 Range/Units 02:43 Calcium 7.9 L (8.6-10.3) mg/dL Phosphorus 4.0 (2.7-4.5) mg/dL Pituitary panel 07/29/19 Range/Units 02:43 Sodium 137 (136-145) mEq/L Potassium 3.5 (3.5-5.1) mEq/L Chloride 102 (98-107) mEq/L Carbon Dioxide 26 (23-29) mEq/L BUN 13 (8-23) mg/dL Creatinine 0.64 (0.60-1.20) mg/dL Glucose 97 (70-105) mg/dL Calcium 7.9 L (8.6-10.3) mg/dL Adrenal panel 07/29/19 Range/Units 02:43 Sodium 137 (136-145) mEq/L Potassium 3.5 (3.5-5.1) mEq/L Chloride 102 (98-107) mEq/L Carbon Dioxide 26 (23-29) mEq/L BUN 13 (8-23) mg/dL Creatinine 0.64 (0.60-1.20) mg/dL Glucose 97 (70-105) mg/dL Calcium 7.9 L (8.6-10.3) mg/dL - Attending Attestation I have personally performed a face to face evaluation on this patient. I have reviewed and agree with the care plan. History and Exam by me shows: The patient is seen and evaluated on morning rounds with the acute care surgery team. She has no appetite. We will start PICC and TPN today. We will start her on diet. We will continue with physical therapy and occupational therapy evaluation. Her elevated white blood cell count may be related to her CML. She is afebrile. She has no complaints of abdominal pain today Ross Jacobsen MD FACS
[2019-07-29] MEDS: Insulin LISPRO 300 UNITS/3 ML VIAL SQ SCH ×2 (13:47→18:57)
[2019-07-29] MEDS: 0.9 % Sodium Chloride 1,000 ML IVC SCH (14:07)
[2019-07-29] MEDS ORDERED: Clinimix E 5%-15% SOLUTION 2,000 ML with MVI, adult with vitamin K 10 ML IVC ONE (17:00)
[2019-07-29] MEDS: *HR* Rivaroxaban 10 MG TABLET PO SCH (17:24)
[2019-07-29] MEDS: traZODone 50 MG TABLET PO SCH (21:14)
[2019-07-30] MEDS: Insulin LISPRO 300 UNITS/3 ML VIAL SQ SCH ×6 (00:47→21:07)
[2019-07-30] MEDS: MetroNIDAZOLE 500 MG/100 ML 500 MG/100 ML BAG IVPB SCH ×3 (00:47→16:45)
[2019-07-30] MEDS: *HR* HYDROcodone/Acet 5/325 mg TABLET PO PRN ×3 (00:47→16:50)
[2019-07-30] MEDS: 0.9 % Sodium Chloride 1,000 ML IVC SCH (04:32)
[2019-07-30 05:05] LABS: VBG Ionized Calcium 1.12 mmol/L (1.15-1.35)
[2019-07-30 05:05] LABS: Basophils # 0.1 K/mcL (0.0-0.2); Basophils % 0.4 %; Eosinophils # 0.4 K/mcL (0.0-0.6); Hematocrit 21.9 % (35.3-44.9); Immature Granulocytes % 1.7 % (0-4); Lymphocytes % 7.4 %; Mean Corpuscular Hemoglobin 30.2 pg (28.0-33.3); Mean Corpuscular Volume 94.4 fL (83.0-100.0); Mean Platelet Volume 9.7 fL (9.4-12.4); Monocytes # 1.2 K/mcL (0.0-1.3); Monocytes % 8.4 %; Neutrophils # 10.8 K/mcL (1.6-8.9); Nucleated Red Blood Cells 0.5 /100 WBC (0); Platelet Count 715 K/mcL (140-400); Red Blood Count 2.32 M/mcL (3.82-4.97); Red Cell Distribution Width 18.2 % (11.5-14.5); Segmented Neutrophils % 79.1 %; White Blood Count 13.7 K/mcL (4.3-11.1)
[2019-07-30 05:18] LABS: BUN/Creatinine Ratio 19 (6-26); Blood Urea Nitrogen 10 mg/dL (8-23); Calcium 7.2 mg/dL (8.6-10.3); Carbon Dioxide 28 mEq/L (23-29); Chloride 105 mEq/L (98-107); Glucose 150 mg/dL (70-105); Magnesium 1.6 mg/dL (1.6-2.6); Osmolality,Calculated 288 (280-300); Phosphorous 3.1 mg/dL (2.7-4.5); Potassium 2.9 mEq/L (3.5-5.1); Sodium 138 mEq/L (136-145); eGFR For African Americans > 60 (> 60); eGFR For Non-African Americans > 60 (> 60)
[2019-07-30] MEDS: Diltiazem CD (24hr) 240 MG CAPSULE PO SCH (08:45)
[2019-07-30] MEDS: Ondansetron 4 MG/2 ML VIAL IVP PRN (08:46)
[2019-07-30] MEDS: Loratadine 10 MG TABLET PO SCH (08:46)
--- NOTE | 2019-07-30 11:51 | AcuteCareSurgery Progress Note ---
<Michelle Stack - Last Filed: 07/30/19 11:48> Date of Encounter: 07/30/19 Time of Encounter: 11:30 - Assessment and Plan (1) Nausea & vomiting Current Visit: Yes Status: Acute Denies nausea/vomiting today but continued poor appetite Tolerating clear liquids, protein supplements ordered Continue TPN SBFT today for further evaluation- complaint of bloating with contrast Supportive care IV fluids Repeat am labs- CBC, BMP Qualifiers: Vomiting type: unspecified Vomiting Intractability: non-intractable Qualified Code(s): R11.2 - Nausea with vomiting, unspecified (2) Diarrhea Current Visit: Yes Status: Chronic C-diff negative Continue fiber supplements and Immodium prn IV fluids Supportive care Qualifiers: Diarrhea type: unspecified type Qualified Code(s): R19.7 - Diarrhea, unspecified (3) S/P right hemicolectomy Current Visit: No Status: Chronic (4) Physical deconditioning Current Visit: Yes Status: Acute Continue PT/OT for mobilization Will need to return to rehab upon discharge (5) Protein-calorie malnutrition, moderate Current Visit: Yes Status: Acute TPN therapy PO protein supplements as tolerated (6) Atrial fibrillation Current Visit: No Status: Chronic Continue home medication regimen as tolerated Qualifiers: Atrial fibrillation type: paroxysmal Qualified Code(s): I48.0 - Paroxysmal atrial fibrillation (7) CML (chronic myelocytic leukemia) Current Visit: No Status: Chronic WBC 13.7 (18.2) Continue flagyl Repeat am labs- CBC (8) Hypokalemia Current Visit: No Status: Acute Replace potassium Repeat am labs- CBC, BMP (9) DVT prophylaxis Current Visit: No Status: Acute Xarelto Compression stocking to bilateral lower extremities Subjective Patient reports: voiding w/o difficulty, flatus, diarrhea, afebrile, other (Patient is currently drinking contrast for SBFT and reports feeling very uncomfortable due to bloating, denies nausea/vomiting) Objective Vital Signs - Last 8 Hours Temp Pulse Resp BP Pulse Ox 07/30/19 06:52 97.8 F 92 19 128/61 95 07/30/19 04:45 97.9 F 93 16 134/63 90 Intake and Output 07/29/19 07/30/19 07/30/19 23:59 07:59 15:59 Intake Total 100 / 300 1490 / 1490 Output Total 0 / 0 Balance 100 / 300 1490 / 1490 Intake: IV Fluids 100 / 300 1010 / 1010 0.9 % Sodium Chloride 1,000 ML 910 / 910 @ 75 mls/hr IVC .[id number] [facility] Rx #:[id number] Flagyl Premix 500 MG/100 ML 500 100 / 300 100 / 100 mg In 100 ml @ 100 mls/hr IVPB Q8HR [facility] Rx#:[id number] Oral 0 / 0 480 / 480 Output: Urine 0 / 0 Other: Stool Size Large Stool Consistency loose liquid Stool Color Black # Voids 1 # Bowel Movements 1 # Bowel Movement Diapers 2 Weight 72.1 kg Blood Glucose* 158 175 140 Patient Weight 07/30/19 23:59 Weight 72.1 kg - General physical appearance well developed, moderate distress - Eyes normal ocular movement - ENT normal mucosa, atraumatic, normocephalic - Neck Neck exam: trachea midline - Respiratory normal respiratory effort, clear to auscultation, other (diminished bibasilar bases) - Cardiovascular Cardiovascular exam: Present: irregular rhythm - Abdomen Abdomen: Present: bowel sounds present, soft, non tender, distended - Incision Incision: Present: clean and dry, intact - Neurologic CN 2-12 grossly intact - Musculoskeletal other (physical deconditioning noted) - Psychiatric oriented to time, oriented to person, oriented to place, speech is normal, memory intact - Labs 07/30/19 04:30 07/30/19 04:30 Diabetes panel 07/30/19 07/30/19 Range/Units 04:30 04:30 Sodium 138 (136-145) mEq/L Potassium 2.9 L (3.5-5.1) mEq/L Chloride 105 (98-107) mEq/L Carbon Dioxide 28 (23-29) mEq/L BUN 10 (8-23) mg/dL Creatinine 0.52 L (0.60-1.20) mg/dL Glucose 150 H (70-105) mg/dL Calcium 7.2 L (8.6-10.3) mg/dL Triglycerides 85 (< 150) mg/dL Calcium panel 07/30/19 07/30/19 Range/Units 04:30 04:30 Calcium 7.2 L (8.6-10.3) mg/dL Phosphorus 3.1 (2.7-4.5) mg/dL Pituitary panel 07/30/19 Range/Units 04:30 Sodium 138 (136-145) mEq/L Potassium 2.9 L (3.5-5.1) mEq/L Chloride 105 (98-107) mEq/L Carbon Dioxide 28 (23-29) mEq/L BUN 10 (8-23) mg/dL Creatinine 0.52 L (0.60-1.20) mg/dL Glucose 150 H (70-105) mg/dL Calcium 7.2 L (8.6-10.3) mg/dL Adrenal panel 07/30/19 Range/Units 04:30 Sodium 138 (136-145) mEq/L Potassium 2.9 L (3.5-5.1) mEq/L Chloride 105 (98-107) mEq/L Carbon Dioxide 28 (23-29) mEq/L BUN 10 (8-23) mg/dL Creatinine 0.52 L (0.60-1.20) mg/dL Glucose 150 H (70-105) mg/dL Calcium 7.2 L (8.6-10.3) mg/dL Consult Discharge Plan - Plan Referrals: Del Caceres DO [Primary Care Provider] - - Attending Attestation For this encounter, I have reviewed the CREW PERSON or PA documentation, treatment plan, and medical decision making; and I have had face to face time with this patient. <Geronimo Mcgarry - Last Filed: 07/31/19 13:10> Date of Encounter: 07/30/19 Objective Vital Signs - Last 8 Hours Temp Pulse Resp BP Pulse Ox 07/31/19 11:44 97.7 F 88 16 151/83 94 07/31/19 07:56 98.1 F 104 14 138/76 96 Intake and Output 07/30/19 07/31/19 07/31/19 23:59 07:59 15:59 Intake Total 1277 / 3237 1450 / 1450 Output Total 50 / 50 Balance 1227 / 3187 1450 / 1450 Intake: IV Fluids 1277 / 2637 1330 / 1330 0.9 % Sodium Chloride 1,000 ML 980 / 980 @ 75 mls/hr IVC .[id number] [facility] Rx #:[id number] Clinimix E 5%-15% SOLUTION 2, 1177 / 1177 000 ML @ 50 mls/hr IVC .Q24H ONE with M.v.i. Adult 10 ml Rx# :[id number] Intralipid 20% 250 ML @ 21 mls/ 250 / 250 hr IVPB DAILY@1700 [facility] Rx#: [id number] Flagyl Premix 500 MG/100 ML 500 100 / 300 100 / 100 mg In 100 ml @ 100 mls/hr IVPB Q8HR [facility] Rx#:[id number] Oral 120 / 120 Output: Emesis 50 / 50 Other: Meal NPO for Supper Stool Size Moderate Small Stool Consistency loose loose Stool Characteristics Mucoid Stool Color Brown Green Black # Voids 1 1 # Urine Diapers 1 # Bowel Movements 1 # Bowel Movement Diapers 1 Blood Glucose* 188 172 152 - Labs 07/31/19 04:30 07/31/19 04:30 Diabetes panel 07/31/19 Range/Units 04:30 Sodium 138 (136-145) mEq/L Potassium 3.2 L (3.5-5.1) mEq/L Chloride 104 (98-107) mEq/L Carbon Dioxide 27 (23-29) mEq/L BUN 7 L (8-23) mg/dL Creatinine 0.47 L (0.60-1.20) mg/dL Glucose 158 H (70-105) mg/dL Calcium 7.8 L (8.6-10.3) mg/dL Calcium panel 07/31/19 07/31/19 Range/Units 04:30 04:30 Calcium 7.8 L (8.6-10.3) mg/dL Phosphorus 2.9 (2.7-4.5) mg/dL Pituitary panel 07/31/19 Range/Units 04:30 Sodium 138 (136-145) mEq/L Potassium 3.2 L (3.5-5.1) mEq/L Chloride 104 (98-107) mEq/L Carbon Dioxide 27 (23-29) mEq/L BUN 7 L (8-23) mg/dL Creatinine 0.47 L (0.60-1.20) mg/dL Glucose 158 H (70-105) mg/dL Calcium 7.8 L (8.6-10.3) mg/dL Adrenal panel 07/31/19 Range/Units 04:30 Sodium 138 (136-145) mEq/L Potassium 3.2 L (3.5-5.1) mEq/L Chloride 104 (98-107) mEq/L Carbon Dioxide 27 (23-29) mEq/L BUN 7 L (8-23) mg/dL Creatinine 0.47 L (0.60-1.20) mg/dL Glucose 158 H (70-105) mg/dL Calcium 7.8 L (8.6-10.3) mg/dL - Attending Attestation I personally reviewed the above assessment and evaluation with the nurse practitioner and agree with the above plan.
[2019-07-30] MEDS: Ondansetron 4 MG/2 ML VIAL IVP SCH ×2 (15:01→21:05)
[2019-07-30] MEDS: Pantoprazole 40 MG VIAL IVP SCH (16:45)
[2019-07-30] MEDS: *HR* Rivaroxaban 10 MG TABLET PO SCH (16:46)
[2019-07-30] MEDS ORDERED: Clinimix E 5%-15% SOLUTION 2,000 ML with MVI, adult with vitamin K 10 ML IVC SCH (17:00)
[2019-07-30] MEDS: traZODone 50 MG TABLET PO SCH (21:06)
[2019-07-31] MEDS: MetroNIDAZOLE 500 MG/100 ML 500 MG/100 ML BAG IVPB SCH ×2 (00:05→09:12)
[2019-07-31] MEDS: *HR* HYDROcodone/Acet 5/325 mg TABLET PO PRN (00:10)
[2019-07-31] MEDS: Insulin LISPRO 300 UNITS/3 ML VIAL SQ SCH ×6 (00:11→21:40)
[2019-07-31] MEDS: Ondansetron 4 MG/2 ML VIAL IVP SCH ×6 (00:26→21:43)
[2019-07-31] MEDS: 0.9 % Sodium Chloride 1,000 ML IVC SCH (04:24)
[2019-07-31 05:08] LABS: Basophils # 0.1 K/mcL (0.0-0.2); Basophils % 0.3 %; Eosinophils # 0.3 K/mcL (0.0-0.6); Eosinophils % 1.8 %; Hematocrit 24.8 % (35.3-44.9); Hemoglobin 7.9 g/dL (11.5-15.4); Immature Granulocytes % 2.1 % (0-4); Lymphocytes # 1.1 K/mcL (0.6-4.6); Mean Corpuscular HGB Conc 31.9 g/dL (31.6-35.5); Mean Corpuscular Volume 94.3 fL (83.0-100.0); Mean Platelet Volume 9.5 fL (9.4-12.4); Monocytes # 1.3 K/mcL (0.0-1.3); Monocytes % 8.6 %; Neutrophils # 12.3 K/mcL (1.6-8.9); Nucleated Red Blood Cells 0.5 /100 WBC (0); Platelet Count 868 K/mcL (140-400); Red Blood Count 2.63 M/mcL (3.82-4.97); Red Cell Distribution Width 18.4 % (11.5-14.5); Segmented Neutrophils % 80.2 %; White Blood Count 15.4 K/mcL (4.3-11.1)
[2019-07-31 05:19] LABS: Magnesium 1.6 mg/dL (1.6-2.6); Phosphorous 2.9 mg/dL (2.7-4.5)
[2019-07-31 05:20] LABS: BUN/Creatinine Ratio 15 (6-26); Blood Urea Nitrogen 7 mg/dL (8-23); Calcium 7.8 mg/dL (8.6-10.3); Carbon Dioxide 27 mEq/L (23-29); Chloride 104 mEq/L (98-107); Glucose 158 mg/dL (70-105); Osmolality,Calculated 287 (280-300); Potassium 3.2 mEq/L (3.5-5.1); Sodium 138 mEq/L (136-145); eGFR For African Americans > 60 (> 60); eGFR For Non-African Americans > 60 (> 60)
[2019-07-31] MEDS: Pantoprazole 40 MG VIAL IVP SCH (09:10)
[2019-07-31] MEDS: Loratadine 10 MG TABLET PO SCH (09:11)
[2019-07-31] MEDS: Diltiazem CD (24hr) 240 MG CAPSULE PO SCH (09:11)
[2019-07-31] MEDS ORDERED: Metoclopramide 10 MG/2 ML VIAL IVP SCH (09:30)
--- NOTE | 2019-07-31 09:56 | AcuteCareSurgery Progress Note ---
<Arely Torres - Last Filed: 07/31/19 09:53> Date of Encounter: 07/31/19 Time of Encounter: 08:30 - Assessment and Plan (1) Nausea & vomiting Current Visit: Yes Status: Acute Pt reports nausea is improved; however, she continues with little appetite. SBFt is with delayed transit, but no obstruction. She is having BMs. She will require a continuous bowel regimen to prevent constipation as outpatient Add colace BID Miralax daily (my hold for loose stool) until having daily BMs that are mashed potatoes consistency, then decrease to daily if no BM the day prior We will advance her to regular diet as tolerated, but will require a calorie count MUST be out of bed to chair for all meals Stop MIV Repeat a.m. labs Q6 Accu checks sliding scale insulin continue to closely monitor Add Reglan 20 mg IV Q8H for 48 hours Qualifiers: Vomiting type: unspecified Vomiting Intractability: non-intractable Qualified Code(s): R11.2 - Nausea with vomiting, unspecified (2) Diarrhea Current Visit: Yes Status: Chronic C-diff negative Stop Linzess Appears to be related to chronic constipation followed by extreme laxative use (per son's report at bedside) See bowel regimen above Qualifiers: Diarrhea type: unspecified type Qualified Code(s): R19.7 - Diarrhea, unspecified (3) S/P right hemicolectomy Current Visit: No Status: Chronic see above REmove patricia, place steristrips (4) Protein-calorie malnutrition, moderate Current Visit: Yes Status: Acute tpn Pt may have whatever she would like to eat Calorie count Wean tpn accordingly (5) DVT prophylaxis Current Visit: Yes Status: Acute Pt is on chronic anticoagualtion (Xarelto) and is a fall risk. We will therefore place TREVOR hose as opposed to EPCDs and nonskid socks. (6) Hypokalemia Current Visit: No Status: Acute Replete as indicated. 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 We will obtain an EKG and place her on telemetry. Further recommendations pending Qualifiers: Atrial fibrillation type: paroxysmal Qualified Code(s): I48.0 - Paroxysmal atrial fibrillation Subjective Patient reports: no new complaints, pain is less, voiding w/o difficulty, flatus, bowel movement, afebrile Narrative: drowsy. Son's are at bedside. Objective Vital Signs - Last 8 Hours Temp Pulse Resp BP Pulse Ox 07/31/19 07:56 98.1 F 104 14 138/76 96 07/31/19 03:50 97.9 F 99 20 157/79 Intake and Output 07/30/19 07/31/19 07/31/19 23:59 07:59 15:59 Intake Total 1277 / 3237 1450 / 1450 Output Total 50 / 50 Balance 1227 / 3187 1450 / 1450 Intake: IV Fluids 1277 / 2637 1330 / 1330 0.9 % Sodium Chloride 1,000 ML 980 / 980 @ 75 mls/hr IVC .[id number] [facility] Rx #:[id number] Clinimix E 5%-15% SOLUTION 2, 1177 / 1177 000 ML @ 50 mls/hr IVC .Q24H [facility] with M.v.i. Adult 10 ml Rx# :[id number] Intralipid 20% 250 ML @ 21 mls/ 250 / 250 hr IVPB DAILY@1700 [facility] Rx#: [id number] Flagyl Premix 500 MG/100 ML 500 100 / 300 100 / 100 mg In 100 ml @ 100 mls/hr IVPB Q8HR [facility] Rx#:[id number] Oral 120 / 120 Output: Emesis 50 / 50 Other: Meal NPO for Supper Stool Size Moderate Small Stool Consistency loose loose Stool Characteristics Mucoid Stool Color Brown Green Black # Voids 1 1 # Urine Diapers 1 # Bowel Movements 1 # Bowel Movement Diapers 1 Blood Glucose* 188 172 - General physical appearance no distress, no pain, cachectic - ENT atraumatic, normocephalic - Neck Neck exam: trachea midline - Cardiovascular Cardiovascular exam: Present: tachycardia, murmurs - Abdomen Abdomen: Present: bowel sounds present, soft, non tender - Incision Incision: Present: clean and dry, intact - Integumentary no rash - Neurologic normal sensation - Musculoskeletal normal posture - Psychiatric oriented to time, oriented to person, oriented to place - Labs 07/31/19 04:30 07/31/19 04:30 Diabetes panel 07/31/19 Range/Units 04:30 Sodium 138 (136-145) mEq/L Potassium 3.2 L (3.5-5.1) mEq/L Chloride 104 (98-107) mEq/L Carbon Dioxide 27 (23-29) mEq/L BUN 7 L (8-23) mg/dL Creatinine 0.47 L (0.60-1.20) mg/dL Glucose 158 H (70-105) mg/dL Calcium 7.8 L (8.6-10.3) mg/dL Calcium panel 07/31/19 07/31/19 Range/Units 04:30 04:30 Calcium 7.8 L (8.6-10.3) mg/dL Phosphorus 2.9 (2.7-4.5) mg/dL Pituitary panel 07/31/19 Range/Units 04:30 Sodium 138 (136-145) mEq/L Potassium 3.2 L (3.5-5.1) mEq/L Chloride 104 (98-107) mEq/L Carbon Dioxide 27 (23-29) mEq/L BUN 7 L (8-23) mg/dL Creatinine 0.47 L (0.60-1.20) mg/dL Glucose 158 H (70-105) mg/dL Calcium 7.8 L (8.6-10.3) mg/dL Adrenal panel 07/31/19 Range/Units 04:30 Sodium 138 (136-145) mEq/L Potassium 3.2 L (3.5-5.1) mEq/L Chloride 104 (98-107) mEq/L Carbon Dioxide 27 (23-29) mEq/L BUN 7 L (8-23) mg/dL Creatinine 0.47 L (0.60-1.20) mg/dL Glucose 158 H (70-105) mg/dL Calcium 7.8 L (8.6-10.3) mg/dL - VTE Documentation of Mechanical Device: Graduated compression elastic hosiery Consult Discharge Plan - Plan Referrals: Del Caceres DO [Primary Care Provider] - <Ross Jacobsen - Last Filed: 08/01/19 02:18> Date of Encounter: 07/31/19 - Assessment and Plan (1) Failure to thrive in adult Current Visit: Yes Status: Acute (2) Diarrhea Current Visit: Yes Status: Acute Qualifiers: Diarrhea type: presumed infectious Qualified Code(s): R19.7 - Diarrhea, unspecified Objective Vital Signs - Last 8 Hours Temp Pulse Resp BP Pulse Ox 07/31/19 22:40 98.5 F 109 16 147/79 92 07/31/19 20:07 98.2 F 111 17 163/77 94 Intake and Output 07/31/19 07/31/19 08/01/19 15:59 23:59 07:59 Intake Total 54 / 2818 1314 / 2818 Balance 54 / 2818 1314 / 2818 Intake: IV Fluids 54 / 2498 1114 / 2498 Clinimix E 5%-15% SOLUTION 2, 1060 / 1060 000 ML @ 50 mls/hr IVC .Q24H [facility] with M.v.i. Adult 10 ml Rx# :[id number] Reglan 20 MG In 0.9 % Sodium 54 / 108 54 / 108 Chloride 50 ML @ 108 mls/hr IVPB Q8H [facility] Rx#:[id number] Oral 200 / 320 Other: Meal Dinner Percent of Meal Consumed 5% Stool Size Large Moderate Stool Consistency loose loose # Voids 1 # Bowel Movement Diapers 1 1 Blood Glucose* 152 140 - Labs 07/31/19 04:30 07/31/19 04:30 Diabetes panel 07/31/19 Range/Units 04:30 Sodium 138 (136-145) mEq/L Potassium 3.2 L (3.5-5.1) mEq/L Chloride 104 (98-107) mEq/L Carbon Dioxide 27 (23-29) mEq/L BUN 7 L (8-23) mg/dL Creatinine 0.47 L (0.60-1.20) mg/dL Glucose 158 H (70-105) mg/dL Calcium 7.8 L (8.6-10.3) mg/dL Calcium panel 07/31/19 07/31/19 Range/Units 04:30 04:30 Calcium 7.8 L (8.6-10.3) mg/dL Phosphorus 2.9 (2.7-4.5) mg/dL Pituitary panel 07/31/19 Range/Units 04:30 Sodium 138 (136-145) mEq/L Potassium 3.2 L (3.5-5.1) mEq/L Chloride 104 (98-107) mEq/L Carbon Dioxide 27 (23-29) mEq/L BUN 7 L (8-23) mg/dL Creatinine 0.47 L (0.60-1.20) mg/dL Glucose 158 H (70-105) mg/dL Calcium 7.8 L (8.6-10.3) mg/dL Adrenal panel 07/31/19 Range/Units 04:30 Sodium 138 (136-145) mEq/L Potassium 3.2 L (3.5-5.1) mEq/L Chloride 104 (98-107) mEq/L Carbon Dioxide 27 (23-29) mEq/L BUN 7 L (8-23) mg/dL Creatinine 0.47 L (0.60-1.20) mg/dL Glucose 158 H (70-105) mg/dL Calcium 7.8 L (8.6-10.3) mg/dL - Attending Attestation I have personally performed a face to face evaluation on this patient. I have reviewed and agree with the care plan. History and Exam by me shows: The patient is seen and evaluated on morning rounds with the acute care surgery team. The patient continues to struggle with lack of appetite. She did have a small bowel follow-through that demonstrated slow transit time with no evidence of mechanical obstruction. She will be started on Reglan. Ross Jacobsen MD FACS
[2019-07-31] MEDS ORDERED: Potassium Chloride 40 MEQ, Lidocaine 1% 2 ML in 0.9 % Sodium Chloride 500 ML IVPB ONE (10:03)
[2019-07-31] MEDS: Aspirin Enteric Coated 81 MG Tablet PO SCH (12:03)
[2019-07-31] MEDS: Metoclopramide 20 MG in 0.9 % Sodium Chloride 50 ML IVPB SCH ×2 (12:03→16:57)
[2019-07-31] MEDS ORDERED: Clinimix E 5%-15% SOLUTION 2,000 ML with MVI, adult with vitamin K 10 ML IVC SCH (17:00)
[2019-07-31] MEDS: *HR* Rivaroxaban 10 MG TABLET PO SCH (17:00)
--- NOTE | 2019-07-31 17:31 | Electrocardiograph Report ---
[address] [address] Test Date: 2019-07-31 Pat Name: Mariann Bueno Department: 115 Room: 3A25 Gender: F File Clerk: JONO : 1940 Requested By: Arely Torres Order Number: [id number] Reading MD: Arcelia Belle Measurements Intervals [place] Rate: 85 P: 19 [place]: 162 QRS: 1 QRSD: 88 T: 31 QT: 376 QTc: 418 Interpretive Statements SINUS RHYTHM Electronically Signed On 07-31-2019 17:29:59 EDT by Arcelia Belle
[2019-07-31] MEDS: traZODone 50 MG TABLET PO SCH (21:41)
[2019-08-01] MEDS: Ondansetron 4 MG/2 ML VIAL IVP SCH ×6 (00:37→20:58)
[2019-08-01] MEDS: Insulin LISPRO 300 UNITS/3 ML VIAL SQ SCH ×6 (00:59→20:58)
[2019-08-01] MEDS: Metoclopramide 20 MG in 0.9 % Sodium Chloride 50 ML IVPB SCH ×3 (01:30→17:00)
[2019-08-01 03:50] LABS: BUN/Creatinine Ratio 17 (6-26); Blood Urea Nitrogen 8 mg/dL (8-23); Calcium 7.5 mg/dL (8.6-10.3); Carbon Dioxide 24 mEq/L (23-29); Chloride 108 mEq/L (98-107); Glucose 121 mg/dL (70-105); Magnesium 1.5 mg/dL (1.6-2.6); Osmolality,Calculated 288 (280-300); Phosphorous 3.2 mg/dL (2.7-4.5); Potassium 3.6 mEq/L (3.5-5.1); Sodium 139 mEq/L (136-145); eGFR For African Americans > 60 (> 60); eGFR For Non-African Americans > 60 (> 60)
[2019-08-01] MEDS: Pantoprazole 40 MG VIAL IVP SCH (08:04)
[2019-08-01] MEDS: Diltiazem CD (24hr) 240 MG CAPSULE PO SCH (08:04)
[2019-08-01] MEDS: Aspirin Enteric Coated 81 MG Tablet PO SCH (08:04)
[2019-08-01] MEDS: Loratadine 10 MG TABLET PO SCH (08:05)
[2019-08-01] MEDS ORDERED: Scopolamine Patch 1.5 MG PATCH.TD72 TD ONE ×2 (09:50→12:07)
--- NOTE | 2019-08-01 09:56 | AcuteCareSurgery Progress Note ---
Date of Encounter: 08/01/19 Time of Encounter: 09:51 - Assessment and Plan (1) Nausea & vomiting Current Visit: Yes Status: Acute 79F s/p open right hemicolectomy readmitted with nausea and vomiting; found to have dilated small bowel loops on imaging concerning for ileus vs obstruction, but there is passage of contrast into the colon, passed the anastamsos; patient having bowel function, but still nauseated; able to tolerate jello; hypomagnesmia; i suspect that her bowel is chronically dilated from her disease vs persistent ileus diet as tolerated reglan, scopolamine patch repeat KUB mg sulfate for hypomagnesmia: repeat labs in AM activity as tolerated: PT/OT cont with TPN until able to tolerate a diet; start calorie counts reassess in PM Qualifiers: Vomiting type: unspecified Vomiting Intractability: non-intractable Qualified Code(s): R11.2 - Nausea with vomiting, unspecified Subjective Patient reports: no new complaints, flatus, bowel movement, afebrile Objective Vital Signs - Last 8 Hours Temp Pulse Resp BP Pulse Ox 08/01/19 06:47 98.4 F 115 15 171/82 98 08/01/19 03:33 98.3 F 102 18 160/77 99 Intake and Output 07/31/19 08/01/19 08/01/19 23:59 07:59 15:59 Intake Total 1314 / 2818 54 / 54 Output Total 0 / 0 Balance 1314 / 2818 54 / 54 Intake: IV Fluids 1114 / 2498 54 / 54 Clinimix E 5%-15% SOLUTION 2, 1060 / 1060 000 ML @ 50 mls/hr IVC .Q24H [facility] with M.v.i. Adult 10 ml Rx# :[id number] Reglan 20 MG In 0.9 % Sodium 54 / 108 54 / 54 Chloride 50 ML @ 108 mls/hr IVPB Q8H [facility] Rx#:[id number] Oral 200 / 320 0 / 0 Output: Urine 0 / 0 Other: Meal Dinner Percent of Meal Consumed 5% Stool Size Large Moderate Stool Consistency loose loose Stool Characteristics Seedy Stool Color Yellow Green # Voids 1 # Urine Diapers 0 # Bowel Movement Diapers 1 1 Weight 74.7 kg Blood Glucose* 140 188 Patient Weight 08/01/19 23:59 Weight 74.7 kg - General physical appearance no distress - Respiratory normal expansion, normal respiratory effort - Cardiovascular Cardiovascular exam: Present: RRR - Neurologic CN 2-12 grossly intact - Psychiatric oriented to time, oriented to person, oriented to place - Labs 07/31/19 04:30 08/01/19 03:17 Diabetes panel 08/01/19 Range/Units 03:17 Sodium 139 (136-145) mEq/L Potassium 3.6 (3.5-5.1) mEq/L Chloride 108 H (98-107) mEq/L Carbon Dioxide 24 (23-29) mEq/L BUN 8 (8-23) mg/dL Creatinine 0.47 L (0.60-1.20) mg/dL Glucose 121 H (70-105) mg/dL Calcium 7.5 L (8.6-10.3) mg/dL Calcium panel 08/01/19 Range/Units 03:17 Calcium 7.5 L (8.6-10.3) mg/dL Phosphorus 3.2 (2.7-4.5) mg/dL Pituitary panel 08/01/19 Range/Units 03:17 Sodium 139 (136-145) mEq/L Potassium 3.6 (3.5-5.1) mEq/L Chloride 108 H (98-107) mEq/L Carbon Dioxide 24 (23-29) mEq/L BUN 8 (8-23) mg/dL Creatinine 0.47 L (0.60-1.20) mg/dL Glucose 121 H (70-105) mg/dL Calcium 7.5 L (8.6-10.3) mg/dL Adrenal panel 08/01/19 Range/Units 03:17 Sodium 139 (136-145) mEq/L Potassium 3.6 (3.5-5.1) mEq/L Chloride 108 H (98-107) mEq/L Carbon Dioxide 24 (23-29) mEq/L BUN 8 (8-23) mg/dL Creatinine 0.47 L (0.60-1.20) mg/dL Glucose 121 H (70-105) mg/dL Calcium 7.5 L (8.6-10.3) mg/dL - VTE Documentation of Mechanical Device: Graduated compression elastic hosiery Consult Discharge Plan - Plan Referrals: Del Caceres DO [Primary Care Provider] -
[2019-08-01] MEDS ORDERED: Methylnaltrexone 12 MG/0.6 ML SYRINGE SQ ONE (12:38)
[2019-08-01] MEDS ORDERED: Clinimix E 5%-15% SOLUTION 2,000 ML with MVI, adult with vitamin K 10 ML IVC SCH (17:00)
[2019-08-01] MEDS ORDERED: Clinimix E 5%-15% SOLUTION 2,000 ML, Parenteral Amino Acid 10% 0 ML with MVI, adult wi... IVC SCH (17:00)
[2019-08-01] MEDS: *HR* Rivaroxaban 10 MG TABLET PO SCH (17:00)
[2019-08-01] MEDS: traZODone 50 MG TABLET PO SCH (20:57)
[2019-08-02] MEDS: Ondansetron 4 MG/2 ML VIAL IVP SCH ×7 (01:25→23:55)
[2019-08-02] MEDS: Insulin LISPRO 300 UNITS/3 ML VIAL SQ SCH ×7 (01:25→23:55)
[2019-08-02] MEDS: Metoclopramide 20 MG in 0.9 % Sodium Chloride 50 ML IVPB SCH ×3 (01:47→17:50)
[2019-08-02 05:47] LABS: Basophils # 0.1 K/mcL (0.0-0.2); Basophils % 0.5 %; Eosinophils # 0.4 K/mcL (0.0-0.6); Eosinophils % 3.1 %; Hematocrit 25.3 % (35.3-44.9); Hemoglobin 7.9 g/dL (11.5-15.4); Immature Granulocytes % 2.6 % (0-4); Lymphocytes # 1.3 K/mcL (0.6-4.6); Mean Corpuscular HGB Conc 31.2 g/dL (31.6-35.5); Mean Corpuscular Hemoglobin 30.6 pg (28.0-33.3); Mean Corpuscular Volume 98.1 fL (83.0-100.0); Mean Platelet Volume 9.3 fL (9.4-12.4); Monocytes # 1.4 K/mcL (0.0-1.3); Monocytes % 10.9 %; Neutrophils # 9.5 K/mcL (1.6-8.9); Nucleated Red Blood Cells 0.8 /100 WBC (0); Platelet Count 876 K/mcL (140-400); Red Blood Count 2.58 M/mcL (3.82-4.97); Red Cell Distribution Width 18.8 % (11.5-14.5); Segmented Neutrophils % 72.9 %; White Blood Count 13.1 K/mcL (4.3-11.1)
[2019-08-02 05:59] LABS: BUN/Creatinine Ratio 24 (6-26); Blood Urea Nitrogen 12 mg/dL (8-23); Calcium 7.6 mg/dL (8.6-10.3); Carbon Dioxide 26 mEq/L (23-29); Chloride 104 mEq/L (98-107); Glucose 159 mg/dL (70-105); Magnesium 1.7 mg/dL (1.6-2.6); Osmolality,Calculated 287 (280-300); Phosphorous 3.3 mg/dL (2.7-4.5); Potassium 3.4 mEq/L (3.5-5.1); Sodium 137 mEq/L (136-145); eGFR For African Americans > 60 (> 60); eGFR For Non-African Americans > 60 (> 60)
[2019-08-02] MEDS: Loratadine 10 MG TABLET PO SCH (08:56)
[2019-08-02] MEDS: Aspirin Enteric Coated 81 MG Tablet PO SCH (08:56)
[2019-08-02] MEDS: Diltiazem CD (24hr) 240 MG CAPSULE PO SCH (08:56)
[2019-08-02] MEDS: Pantoprazole 40 MG VIAL IVP SCH (08:56)
--- NOTE | 2019-08-02 12:42 | AcuteCareSurgery Progress Note ---
Date of Encounter: 08/02/19 Time of Encounter: 12:40 - Assessment and Plan (1) Nausea & vomiting Current Visit: Yes Status: Acute 79F s/p open right hemicolectomy readmitted with nausea and vomiting; found to have dilated small bowel loops on imaging concerning for ileus; now having bowel function; tolerating diet this morning; diet as tolerated reglan, scopolamine patch repeat KUB mg sulfate for hypomagnesmia: repeat labs in AM activity as tolerated: PT/OT cont with TPN until able to tolerate a diet; cont calorie counts reassess in PM Qualifiers: Vomiting type: unspecified Vomiting Intractability: non-intractable Qualified Code(s): R11.2 - Nausea with vomiting, unspecified Subjective Patient reports: no new complaints, feels better, tolerating a regular diet, bowel movement Objective Vital Signs - Last 8 Hours Temp Pulse Resp BP Pulse Ox 08/02/19 11:29 98.1 F 112 15 120/77 96 08/02/19 07:25 98.2 F 111 14 168/89 95 Intake and Output 08/01/19 08/02/19 08/02/19 23:59 07:59 15:59 Intake Total 54 / 264 100 / 408 308 / 408 Output Total 0 / 0 0 / 0 Balance 54 / 264 100 / 408 308 / 408 Intake: IV Fluids 54 / 264 108 / 108 Reglan 20 MG In 0.9 % Sodium 54 / 162 108 / 108 Chloride 50 ML @ 108 mls/hr IVPB Q8H [facility] Rx#:[id number] Oral 0 / 0 100 / 300 200 / 300 Output: Urine 0 / 0 0 / 0 Other: Stool Size Moderate Stool Consistency loose Stool Color Yellow Green # Voids 1 # Urine Diapers 1 # Bowel Movements 1 # Bowel Movement Diapers 2 1 Blood Glucose* 214 147 177 - General physical appearance no distress - Respiratory normal expansion, normal respiratory effort - Cardiovascular Cardiovascular exam: Present: RRR - Abdomen Abdomen: Present: soft, non tender - Integumentary no rash - Neurologic CN 2-12 grossly intact - Musculoskeletal normal posture - Labs 08/02/19 05:00 08/02/19 05:00 Diabetes panel 08/02/19 Range/Units 05:00 Sodium 137 (136-145) mEq/L Potassium 3.4 L (3.5-5.1) mEq/L Chloride 104 (98-107) mEq/L Carbon Dioxide 26 (23-29) mEq/L BUN 12 (8-23) mg/dL Creatinine 0.50 L (0.60-1.20) mg/dL Glucose 159 H (70-105) mg/dL Calcium 7.6 L (8.6-10.3) mg/dL Calcium panel 08/02/19 Range/Units 05:00 Calcium 7.6 L (8.6-10.3) mg/dL Phosphorus 3.3 (2.7-4.5) mg/dL Pituitary panel 08/02/19 Range/Units 05:00 Sodium 137 (136-145) mEq/L Potassium 3.4 L (3.5-5.1) mEq/L Chloride 104 (98-107) mEq/L Carbon Dioxide 26 (23-29) mEq/L BUN 12 (8-23) mg/dL Creatinine 0.50 L (0.60-1.20) mg/dL Glucose 159 H (70-105) mg/dL Calcium 7.6 L (8.6-10.3) mg/dL Adrenal panel 08/02/19 Range/Units 05:00 Sodium 137 (136-145) mEq/L Potassium 3.4 L (3.5-5.1) mEq/L Chloride 104 (98-107) mEq/L Carbon Dioxide 26 (23-29) mEq/L BUN 12 (8-23) mg/dL Creatinine 0.50 L (0.60-1.20) mg/dL Glucose 159 H (70-105) mg/dL Calcium 7.6 L (8.6-10.3) mg/dL - VTE Documentation of Mechanical Device: Graduated compression elastic hosiery Consult Discharge Plan - Plan Referrals: Del Caceres DO [Primary Care Provider] -
[2019-08-02] MEDS: traMADol 50 MG TABLET PO PRN (13:35)
[2019-08-02] MEDS ORDERED: Clinimix E 5%-15% SOLUTION 2,000 ML with MVI, adult with vitamin K 10 ML IVC SCH (17:00)
[2019-08-02] MEDS: *HR* Rivaroxaban 10 MG TABLET PO SCH (17:49)
[2019-08-02] MEDS: traZODone 50 MG TABLET PO SCH (20:23)
[2019-08-03] MEDS: Metoclopramide 20 MG in 0.9 % Sodium Chloride 50 ML IVPB SCH ×2 (02:21→08:45)
[2019-08-03] MEDS: Insulin LISPRO 300 UNITS/3 ML VIAL SQ SCH ×5 (04:21→22:22)
[2019-08-03] MEDS: Ondansetron 4 MG/2 ML VIAL IVP SCH ×5 (04:21→20:10)
[2019-08-03 04:59] LABS: BUN/Creatinine Ratio 35 (6-26); Blood Urea Nitrogen 16 mg/dL (8-23); Calcium 7.7 mg/dL (8.6-10.3); Carbon Dioxide 28 mEq/L (23-29); Chloride 106 mEq/L (98-107); Glucose 141 mg/dL (70-105); Magnesium 1.9 mg/dL (1.6-2.6); Osmolality,Calculated 290 (280-300); Phosphorous 3.8 mg/dL (2.7-4.5); Potassium 3.8 mEq/L (3.5-5.1); Sodium 138 mEq/L (136-145); eGFR For African Americans > 60 (> 60); eGFR For Non-African Americans > 60 (> 60)
[2019-08-03] MEDS: Pantoprazole 40 MG VIAL IVP SCH (08:44)
[2019-08-03] MEDS: Loratadine 10 MG TABLET PO SCH (08:45)
[2019-08-03] MEDS: Aspirin Enteric Coated 81 MG Tablet PO SCH (08:45)
[2019-08-03] MEDS: Diltiazem CD (24hr) 240 MG CAPSULE PO SCH (08:45)
[2019-08-03] MEDS ORDERED: Calcium Gluconate 2,000 MG in 0.9 % Sodium Chloride 100 ML IVPB ONE (15:36)
--- NOTE | 2019-08-03 15:36 | AcuteCareSurgery Progress Note ---
Date of Encounter: 08/03/19 Time of Encounter: 15:33 - Assessment and Plan (1) Nausea & vomiting Current Visit: Yes Status: Acute 79F s/p open right hemicolectomy readmitted with nausea and vomiting; found to have dilated small bowel loops on imaging concerning for ileus; now having bowel function; tolerating diet this morning; having moments of delirium in terms of confusion about her location diet as tolerated reglan, scopolamine patch activity as tolerated: PT/OT cont with TPN until able to tolerate a diet; cont calorie counts reassess in PM sleep hygiene: blinds up in the day, blinds down, light out at night; hold on vitals and interruptions at night Qualifiers: Vomiting type: unspecified Vomiting Intractability: non-intractable Qualified Code(s): R11.2 - Nausea with vomiting, unspecified Subjective Patient reports: no new complaints, feels better, tolerating a regular diet, afebrile, other (slightly confused per family) Objective Vital Signs - Last 8 Hours Temp Pulse Resp BP Pulse Ox 08/03/19 12:34 98.5 F 91 14 149/77 96 Intake and Output 08/02/19 08/03/19 08/03/19 23:59 07:59 15:59 Intake Total 354 / 1112 54 / 108 54 / 108 Output Total 0 / 0 300 / 300 Balance 354 / 1112 -246 / -192 54 / -192 Intake: IV Fluids 354 / 612 54 / 108 54 / 108 Reglan 20 MG In 0.9 % Sodium 54 / 162 54 / 108 54 / 108 Chloride 50 ML @ 108 mls/hr IVPB Q8H [facility] Rx#:[id number] Potassium Chloride 10 mEq/100mL 300 / 400 10 meq In 100 ml @ 100 mls/hr IVPB Q1H [facility] Rx#:[id number] Oral 0 / 500 Output: Urine 0 / 0 Urine/Stool Mix 300 / 300 Other: Stool Size Small Moderate Small Stool Consistency liquid loose loose Stool Color Yellow Yellow Green Green Green # Voids 1 1 # Bowel Movements 1 1 1 Blood Glucose* 165 138 - General physical appearance no distress - Respiratory normal expansion, normal respiratory effort - Cardiovascular Cardiovascular exam: Present: RRR - Abdomen Abdomen: Present: soft, tender (minimally tender) - Incision Incision: Present: clean and dry, intact - Neurologic CN 2-12 grossly intact - Musculoskeletal normal posture - Psychiatric oriented to time, oriented to person - Labs 08/02/19 05:00 08/03/19 04:20 Diabetes panel 08/03/19 Range/Units 04:20 Sodium 138 (136-145) mEq/L Potassium 3.8 (3.5-5.1) mEq/L Chloride 106 (98-107) mEq/L Carbon Dioxide 28 (23-29) mEq/L BUN 16 (8-23) mg/dL Creatinine 0.46 L (0.60-1.20) mg/dL Glucose 141 H (70-105) mg/dL Calcium 7.7 L (8.6-10.3) mg/dL Calcium panel 08/03/19 Range/Units 04:20 Calcium 7.7 L (8.6-10.3) mg/dL Phosphorus 3.8 (2.7-4.5) mg/dL Pituitary panel 08/03/19 Range/Units 04:20 Sodium 138 (136-145) mEq/L Potassium 3.8 (3.5-5.1) mEq/L Chloride 106 (98-107) mEq/L Carbon Dioxide 28 (23-29) mEq/L BUN 16 (8-23) mg/dL Creatinine 0.46 L (0.60-1.20) mg/dL Glucose 141 H (70-105) mg/dL Calcium 7.7 L (8.6-10.3) mg/dL Adrenal panel 08/03/19 Range/Units 04:20 Sodium 138 (136-145) mEq/L Potassium 3.8 (3.5-5.1) mEq/L Chloride 106 (98-107) mEq/L Carbon Dioxide 28 (23-29) mEq/L BUN 16 (8-23) mg/dL Creatinine 0.46 L (0.60-1.20) mg/dL Glucose 141 H (70-105) mg/dL Calcium 7.7 L (8.6-10.3) mg/dL - VTE Documentation of Mechanical Device: Graduated compression elastic hosiery Consult Discharge Plan - Plan Referrals: Del Caceres DO [Primary Care Provider] -
[2019-08-03] MEDS ORDERED: Clinimix E 5%-15% SOLUTION 2,000 ML with MVI, adult with vitamin K 10 ML IVC SCH (17:00)
[2019-08-03] MEDS: *HR* Rivaroxaban 10 MG TABLET PO SCH (17:48)
[2019-08-03] MEDS: traZODone 50 MG TABLET PO SCH (20:10)
[2019-08-04] MEDS: Ondansetron 4 MG/2 ML VIAL IVP SCH ×6 (00:27→22:43)
[2019-08-04] MEDS: Insulin LISPRO 300 UNITS/3 ML VIAL SQ SCH ×5 (00:27→16:42)
[2019-08-04 05:06] LABS: BUN/Creatinine Ratio 43 (6-26); Blood Urea Nitrogen 21 mg/dL (8-23); Calcium 7.4 mg/dL (8.6-10.3); Carbon Dioxide 26 mEq/L (23-29); Chloride 102 mEq/L (98-107); Glucose 135 mg/dL (70-105); Magnesium 1.9 mg/dL (1.6-2.6); Osmolality,Calculated 283 (280-300); Phosphorous 3.9 mg/dL (2.7-4.5); Sodium 134 mEq/L (136-145); eGFR For African Americans > 60 (> 60); eGFR For Non-African Americans > 60 (> 60)
[2019-08-04] MEDS: Diltiazem CD (24hr) 240 MG CAPSULE PO SCH (08:06)
[2019-08-04] MEDS: Loratadine 10 MG TABLET PO SCH (08:06)
[2019-08-04] MEDS: Aspirin Enteric Coated 81 MG Tablet PO SCH (08:07)
[2019-08-04] MEDS: Pantoprazole 40 MG VIAL IVP SCH (08:08)
--- NOTE | 2019-08-04 08:20 | AcuteCareSurgery Progress Note ---
<Arely Torres - Last Filed: 08/04/19 09:53> Date of Encounter: 08/04/19 Time of Encounter: 08:18 - Assessment and Plan (1) Nausea & vomiting Current Visit: Yes Status: Acute Nausea resolved. No vomiting. Poor appetite (possibly related to TPN). Continues to have liquid stools. AAS to eval stool burden as she previously had significant stool burden: now without significant stool burden but barium remains scattered throughout the colon. We will continue bowel regimen and add Milk of mag x1. When she is tolerating more po, she will need daily fiber added to regimen. Wean TPN to 50 ml/hr. Stop tonight Regular diet as tolerated. Encourage diet. Consider megace Repeat a.m. labs Q6 Accu checks & sliding scale insulin in the interirm. Stop when TPN is stopped as ptis not diabetic continue to closely monitor OOB to chair for all meals. Do not offer meal trays in bed. Qualifiers: Vomiting type: unspecified Vomiting Intractability: non-intractable Qualified Code(s): R11.2 - Nausea with vomiting, unspecified (2) Diarrhea Current Visit: Yes Status: Chronic C-diff negative AAS today to evaluate if this is liquid slipping around stool burden vs need for bulking agent. There is no significant stool burden noted however barium from previous study remains scattered throughout the colon. Qualifiers: Diarrhea type: unspecified type Qualified Code(s): R19.7 - Diarrhea, unspecified (3) S/P right hemicolectomy Current Visit: No Status: Chronic Recovering. No evidence for concern of infection or anastomotic complication (4) Protein-calorie malnutrition, moderate Current Visit: Yes Status: Acute tpn to 50; stop tonight Pt may have whatever she would like to eat Calorie count Consider megace pending above (5) DVT prophylaxis Current Visit: Yes Status: Acute Pt is on chronic anticoagualtion (Xarelto) and is a fall risk. We will therefore place TREVOR hose as opposed to EPCDs and nonskid socks. (6) Hypokalemia Current Visit: Yes Status: Resolved Replete as indicated. 40 MEQ IV potassium today (7) Physical deconditioning Current Visit: Yes Status: Acute TPN as above PT and OT return to rehab likely 08/05/2019 as they can continue to encourage/manage diet (8) CML (chronic myelocytic leukemia) Current Visit: No Status: Chronic WBC stable (9) Atrial fibrillation Current Visit: Yes Status: Chronic Continue current therapy On Xarelto Stable Continue to monitor Qualifiers: Atrial fibrillation type: paroxysmal Qualified Code(s): I48.0 - Paroxysmal atrial fibrillation (10) Confusion Current Visit: Yes Status: Resolved Confusion noted yesterday resolved. Subjective Patient reports: no new complaints, feels better, pain is less, tolerating a regular diet, voiding w/o difficulty, flatus, diarrhea, afebrile Objective Vital Signs - Last 8 Hours Temp Pulse Resp BP Pulse Ox 08/04/19 06:52 98.6 F 106 16 133/75 97 08/04/19 04:05 98.3 F 104 16 151/77 93 Intake and Output 08/03/19 08/04/19 08/04/19 23:59 07:59 15:59 Other: Stool Size Small Moderate Moderate Stool Consistency liquid soft soft Stool Color Yellow Green Green Green # Voids 1 1 # Urine Diapers 1 # Bowel Movements 1 # Bowel Movement Diapers 1 1 Blood Glucose* 184 160 157 - General physical appearance cachectic - ENT atraumatic, normocephalic - Neck Neck exam: trachea midline - Respiratory normal expansion, normal respiratory effort, clear to auscultation - Cardiovascular Cardiovascular exam: Present: RRR - Abdomen Abdomen: Present: bowel sounds present, soft, non tender Hernia: none - Incision Incision: Present: clean and dry, intact - Integumentary no rash - Neurologic normal sensation - Musculoskeletal normal posture - Psychiatric oriented to time, oriented to person, oriented to place - Labs 08/02/19 05:00 08/04/19 04:32 Diabetes panel 08/04/19 Range/Units 04:32 Sodium 134 L (136-145) mEq/L Potassium 4.0 (3.5-5.1) mEq/L Chloride 102 (98-107) mEq/L Carbon Dioxide 26 (23-29) mEq/L BUN 21 (8-23) mg/dL Creatinine 0.49 L (0.60-1.20) mg/dL Glucose 135 H (70-105) mg/dL Calcium 7.4 L (8.6-10.3) mg/dL Calcium panel 08/04/19 Range/Units 04:32 Calcium 7.4 L (8.6-10.3) mg/dL Phosphorus 3.9 (2.7-4.5) mg/dL Pituitary panel 08/04/19 Range/Units 04:32 Sodium 134 L (136-145) mEq/L Potassium 4.0 (3.5-5.1) mEq/L Chloride 102 (98-107) mEq/L Carbon Dioxide 26 (23-29) mEq/L BUN 21 (8-23) mg/dL Creatinine 0.49 L (0.60-1.20) mg/dL Glucose 135 H (70-105) mg/dL Calcium 7.4 L (8.6-10.3) mg/dL Adrenal panel 08/04/19 Range/Units 04:32 Sodium 134 L (136-145) mEq/L Potassium 4.0 (3.5-5.1) mEq/L Chloride 102 (98-107) mEq/L Carbon Dioxide 26 (23-29) mEq/L BUN 21 (8-23) mg/dL Creatinine 0.49 L (0.60-1.20) mg/dL Glucose 135 H (70-105) mg/dL Calcium 7.4 L (8.6-10.3) mg/dL - VTE Documentation of Mechanical Device: Graduated compression elastic hosiery Consult Discharge Plan - Plan Referrals: Del Caceres DO [Primary Care Provider] - <Leigh Ann Lima - Last Filed: 08/04/19 14:02> Date of Encounter: 08/04/19 - Assessment and Plan (1) Nausea & vomiting Current Visit: Yes Status: Acute Qualifiers: Vomiting type: unspecified Vomiting Intractability: non-intractable Qualified Code(s): R11.2 - Nausea with vomiting, unspecified (2) Diarrhea Current Visit: Yes Status: Chronic Qualifiers: Diarrhea type: unspecified type Qualified Code(s): R19.7 - Diarrhea, unspecified (3) S/P right hemicolectomy Current Visit: No Status: Chronic (4) Atrial fibrillation Current Visit: Yes Status: Chronic Qualifiers: Atrial fibrillation type: paroxysmal Qualified Code(s): I48.0 - Paroxysmal atrial fibrillation Objective Vital Signs - Last 8 Hours Temp Pulse Resp BP Pulse Ox 08/04/19 13:52 98.0 F 99 15 128/76 96 08/04/19 10:32 97.9 F 81 15 111/68 96 08/04/19 06:52 98.6 F 106 16 133/75 97 Intake and Output 08/03/19 08/04/19 08/04/19 23:59 07:59 15:59 Intake Total 1597 / 1597 Output Total Balance 1596 / 1596 Intake: IV Fluids 1167 / 1167 Clinimix E 5%-15% SOLUTION 2, 1167 / 1167 000 ML @ 83.3 mls/hr IVC .Q24H BRITNEY with M.v.i. Adult 10 ml Rx# :[id number] Oral 430 / 430 Output: Urine Other: Meal Lunch Percent of Meal Consumed 0% Stool Size Small Moderate Large Stool Consistency liquid soft liquid Stool Characteristics Seedy Stool Color Yellow Green Yellow Green Green # Voids 1 0 # Urine Diapers 1 1 # Bowel Movements 1 # Bowel Movement Diapers 1 1 Weight 64.27 kg Blood Glucose* 184 160 130 Patient Weight 08/04/19 23:59 Weight 64.27 kg - Labs 08/02/19 05:00 08/04/19 04:32 Diabetes panel 08/04/19 Range/Units 04:32 Sodium 134 L (136-145) mEq/L Potassium 4.0 (3.5-5.1) mEq/L Chloride 102 (98-107) mEq/L Carbon Dioxide 26 (23-29) mEq/L BUN 21 (8-23) mg/dL Creatinine 0.49 L (0.60-1.20) mg/dL Glucose 135 H (70-105) mg/dL Calcium 7.4 L (8.6-10.3) mg/dL Calcium panel 08/04/19 Range/Units 04:32 Calcium 7.4 L (8.6-10.3) mg/dL Phosphorus 3.9 (2.7-4.5) mg/dL Pituitary panel 08/04/19 Range/Units 04:32 Sodium 134 L (136-145) mEq/L Potassium 4.0 (3.5-5.1) mEq/L Chloride 102 (98-107) mEq/L Carbon Dioxide 26 (23-29) mEq/L BUN 21 (8-23) mg/dL Creatinine 0.49 L (0.60-1.20) mg/dL Glucose 135 H (70-105) mg/dL Calcium 7.4 L (8.6-10.3) mg/dL Adrenal panel 08/04/19 Range/Units 04:32 Sodium 134 L (136-145) mEq/L Potassium 4.0 (3.5-5.1) mEq/L Chloride 102 (98-107) mEq/L Carbon Dioxide 26 (23-29) mEq/L BUN 21 (8-23) mg/dL Creatinine 0.49 L (0.60-1.20) mg/dL Glucose 135 H (70-105) mg/dL Calcium 7.4 L (8.6-10.3) mg/dL - Attending Attestation I examined this patient and my medical decision-making was reviewed with the SHAREMILKER. I agree with the documented findings, disposition and treatment plan as described to the extent set forth below. Pt s/p right hemicolectomy for cecal volvulus. Pt recovering from prolonged post-op ileus. She is tolerating regular diet with poor PO intake. Nausea is resolved. Wean TPN and encourage PO intake. DC planning for return to ECF.
[2019-08-04] MEDS ORDERED: MOM Conc 10 ML UD.LIQ PO ONE (09:25)
[2019-08-04] MEDS ORDERED: Clinimix E 5%-15% SOLUTION 2,000 ML with MVI, adult with vitamin K 10 ML IVC SCH (10:30)
[2019-08-04] MEDS: *HR* Rivaroxaban 10 MG TABLET PO SCH (16:46)
[2019-08-04] MEDS: traZODone 50 MG TABLET PO SCH (22:40)
[2019-08-04] MEDS: traMADol 50 MG TABLET PO PRN (22:44)
[2019-08-05] MEDS: Ondansetron 4 MG/2 ML VIAL IVP SCH ×4 (02:56→13:38)
[2019-08-05 07:17] VITALS: BP 124/74
[2019-08-05] MEDS: Diltiazem CD (24hr) 240 MG CAPSULE PO SCH (08:19)
[2019-08-05] MEDS: Pantoprazole 40 MG VIAL IVP SCH (08:20)
[2019-08-05] MEDS: Aspirin Enteric Coated 81 MG Tablet PO SCH (08:20)
[2019-08-05] MEDS: Loratadine 10 MG TABLET PO SCH (08:20)
--- NOTE | 2019-08-05 08:21 | Discharge Summary ---
<Arely Torres - Last Filed: 08/05/19 08:31> Date of Encounter: 08/05/19 Time of Encounter: 08:19 - Discharge Diagnosis (1) Nausea & vomiting Priority: Primary Status: Resolved Qualifiers: Vomiting type: unspecified Vomiting Intractability: non-intractable Qualified Code(s): R11.2 - Nausea with vomiting, unspecified (2) Diarrhea Priority: Primary Status: Chronic Qualifiers: Diarrhea type: unspecified type Qualified Code(s): R19.7 - Diarrhea, unspecified (3) S/P right hemicolectomy Priority: Secondary Status: Chronic (4) Protein-calorie malnutrition, moderate Priority: Secondary Status: Acute (5) DVT prophylaxis Priority: Secondary Status: Acute (6) Hypokalemia Priority: Secondary Status: Resolved (7) Physical deconditioning Priority: Secondary Status: Acute (8) CML (chronic myelocytic leukemia) Priority: Secondary Status: Chronic (9) Atrial fibrillation Priority: Secondary Status: Chronic Qualifiers: Atrial fibrillation type: paroxysmal Qualified Code(s): I48.0 - Paroxysmal atrial fibrillation (10) Confusion Priority: Secondary Status: Resolved General Surgery Exam Initial Vital Signs Temp Pulse Resp BP Pulse Ox 98.7 F 102 16 114/72 97 07/27/19 20:11 07/27/19 20:11 07/27/19 20:11 07/27/19 20:11 07/27/19 20:11 - Hospital Course Hospital course: Ms. Bueno is a 79 year old female who presented on 07/27/2019 for nausea and vomiting, postoperative ileus. She had previously underwent a right hemicolectomy for a sequel volvulus. She then began having nausea, vomiting, and diarrhea. She was supported with bowel rest, and NG tube, TPN and lipids, C diff was negative, and a small bowel follow-through was negative. She is tolerating a diet without nausea or vomiting, continues to have loose stools however we have discussed at length that her bowel habits will exchange engineer time. She is recommended to use been a fiber twice daily and to take MiraLAX if she did not have a bowel movement the day previous. We will begin discharge planning with return to [facility] bed and follow-up in the office in approximately 2 weeks. - Time Spent with Patient Total time spent providing and/or coordinating discharge services: - Discharge Medications Prescriptions: New Wheat Dextrin [Benefiber] 1 each PO BID 90 Days #60 powd.pack Polyethylene Glycol 3350 [MiraLAX Powder Bulk 17.9 Oz] 1 scoop PO DAILY PRN #510 gm PRN Reason: Constipation Continued Acetaminophen [Tylenol] 500 mg PO Q6HR PRN PRN Reason: Pain Pravastatin Sodium [Pravachol] 40 mg PO HS Rivaroxaban [Xarelto] 20 mg PO DAILY Ferrous Sulfate [Iron] 325 mg PO DAILY #30 tablet Cilostazol [Pletal] 100 mg PO BID traZODone [TraZODone] 100 mg PO HS Cyclobenzaprine [Flexeril] 10 mg PO TID Cetirizine HCl [Zyrtec] 10 mg PO DAILY Diltiazem CD (24hr) [Cardizem CD] 240 mg PO DAILY Aspirin [Lo-Dose Aspirin EC] 81 mg PO DAILY Metoprolol [Lopressor] 25 mg PO BID Home Medications: Acetaminophen [Tylenol] 500 mg PO Q6HR PRN 05/14/18 [History] Pravastatin Sodium [Pravachol] 40 mg PO HS 05/14/18 [History] Rivaroxaban [Xarelto] 20 mg PO DAILY 06/03/18 [History] Ferrous Sulfate [Iron] 325 mg PO DAILY #30 tablet 06/13/18 [Rx] Cilostazol [Pletal] 100 mg PO BID 01/29/19 [History] Cetirizine HCl [Zyrtec] 10 mg PO DAILY 07/15/19 [History] Cyclobenzaprine [Flexeril] 10 mg PO TID 07/15/19 [History] Diltiazem CD (24hr) [Cardizem CD] 240 mg PO DAILY 07/15/19 [History] traZODone [TraZODone] 100 mg PO HS 07/15/19 [History] Aspirin [Lo-Dose Aspirin EC] 81 mg PO DAILY 07/28/19 [History] Metoprolol [Lopressor] 25 mg PO BID 07/28/19 [History] Polyethylene Glycol 3350 [MiraLAX Powder Bulk 17.9 Oz] 1 scoop PO DAILY PRN #510 gm 08/05/19 [Rx] Wheat Dextrin [Benefiber] 1 each PO BID 90 Days #60 powd.pack 08/05/19 [Rx] Allergies/Adverse Reactions: Allergy/AdvReac Type Severity Reaction Status Date / Time amantadine AdvReac Itching Verified 07/28/19 15:25 Phenothiazines AdvReac Itching Verified 07/28/19 15:25 promethazine AdvReac Itching Verified 07/28/19 15:25 Date of admission: 07/27/19 19:58 Primary care physician: Del Caceres DO Consults: 07/28/19 16:52 Consult to Nutrition [CONS] Stat Comment: Titrate IV fluids to TPN goal. Stop IV fluids whe Consulting Provider: NUTRITION Reason for Dietary Consult: TPN Start and Manage 07/29/19 09:29 Consult to Invasive Line Access Team [CONS] Routine Reason for Consult: Picc Line Insertion Line Type: PICC PICC line indications: Parental nutrition Time Notified: 09:30 Call Completed: Yes 07/29/19 11:29 Consult to Occupational Therapy [CONS] Routine Comment: Evaluate, develop and implement POC Reason for Consult: mobilization and d.c. planning. Pt will return to rehab Does patient have active BEDREST order?: No Is patient medically & hemodynamically stable?: Yes Patient assessed for mobility or mobilized this visit?: No Consult to Physical Therapy [CONS] Routine Comment: Evaluate, develop and implement POC Reason for Consult: mobilization and d.c. planning. Pt will return to rehab Does patient have active BEDREST order?: No Is patient medically & hemodynamically stable?: Yes Patient assessed for mobility or mobilized this visit?: No 07/31/19 09:59 Consult to Respiratory Therapy [CONS] Stat Reason for Consult: Aggressive pulm toileting; will require assistance of RT and RN to complete IS Time Notified: 10:01 Call Completed: No Labs on day of discharge: Labs from last 24 hours 08/05/19 08/05/19 08/04/19 04:28 00:50 20:57 POC Glucose 85 100 H 121 H - Impressions ITS Impressions Small Bowel X-Ray 07/30/19 08:11 IMPRESSION: Dilation of the proximal and distal small bowel without visualization of the terminal ileum or colon after carrying out the small-bowel follow-through for 3-1/2 hours.. No transition point was identified. Findings may be consistent with either a distal small-bowel obstruction or ileus. Recommend follow-up KUB. These results were sent to results communications to be called to a license caregiver a D/ / Nicolas Castañeda MD / Nicolas Castañeda MD Interpreting Provider: Nicolas Castañeda MD X-Ray 07/30/19 19:06 IMPRESSION: Persistent dilation of small bowel loops which contain most of the contrast from earlier study. Small amount of oral contrast is suspected within the right colon. D/ / Marilyn Barragan Cha, MD / Marilyn Barragan Cha, MD Interpreting Provider: Marilyn Barragan Cha, MD X-Ray 07/31/19 09:22 IMPRESSION: Slight interval improvement of the bowel gas pattern in comparison with yesterday's exam, with the bowel gas pattern remaining most consistent with at least a partial small bowel obstruction. There is no evidence of free air. D/ / 07/31/2019 09:28:05 Slava Barker MD [facility] Inter[facility] Provider: Slava Barker MD X-Ray 08/01/19 09:46 IMPRESSION: Limited study because of the high density barium seen scattered throughout the small bowel and colon. Findings most in keeping with adynamic ileus. D/ / Trell Humphrey / Trell Humphrey Interpreting Provider: Trell Humphrey Abdomen X-Ray 08/04/19 09:06 IMPRESSION: Antegrade transit of oral contrast, which is now throughout the colon. No evidence of bowel obstruction. Mildly prominent air-filled loops of small bowel appear similar in caliber, most likely due to a mild small bowel ileus. No significant amount of stool in the colon. D/ / Slava Arita MD / Slava Arita MD Interpreting Provider: Slava Arita MD - Patient Status Disposition: Transfer Hospital Swing Bed Condition: Fair Functional capacity at discharge: uses cane/walker Overall status at discharge: patient is progressing back to baseline - Discharge Instructions Instructions: High Fiber Diet (DC) Follow Up With: Del Caceres DO [Primary Care Provider] - Ross Jacobsen MD [Partnered Physician] - 08/26/19 8:50 am Additional Instructions: Continue rehab as previously recommended. No pushing, pulling, or lifting greater than 20 lbs for 4 more weeks. Your bowel habits will continue to change/improve. Take benefiber twice daily. Take miralax prn (if you did not have a BM the day prior, begin miralax until you are having daily BMs that are not painful and are mashed potatoes consistency, then decrease to as needed). Follow-up as directed. - Diet and Activity Activity: as per physical therapy, increase activity as tolerated Diet: other (high fiber) <Leigh Ann Lima - Last Filed: 08/05/19 23:55> Date of Encounter: 08/05/19 - Discharge Diagnosis (1) Nausea & vomiting Status: Resolved Qualifiers: Vomiting type: unspecified Vomiting Intractability: non-intractable Qualified Code(s): R11.2 - Nausea with vomiting, unspecified (2) Diarrhea Status: Chronic Qualifiers: Diarrhea type: unspecified type Qualified Code(s): R19.7 - Diarrhea, unspecified (3) S/P right hemicolectomy Status: Chronic (4) Atrial fibrillation Status: Chronic Qualifiers: Atrial fibrillation type: paroxysmal Qualified Code(s): I48.0 - Paroxysmal atrial fibrillation General Surgery Exam Initial Vital Signs Temp Pulse Resp BP Pulse Ox 98.7 F 102 16 114/72 97 07/27/19 20:11 07/27/19 20:11 07/27/19 20:11 07/27/19 20:11 07/27/19 20:11 - Hospital Course Hospital course: Ms. Bueno is a 79 year old female - Time Spent with Patient Total time spent providing and/or coordinating discharge services: Date of admission: 07/27/19 19:58 Primary care physician: Del Caceres DO Consults: 07/28/19 16:52 Consult to Nutrition [CONS] Stat Comment: Titrate IV fluids to TPN goal. Stop IV fluids whe Consulting Provider: NUTRITION Reason for Dietary Consult: TPN Start and Manage 07/29/19 09:29 Consult to Invasive Line Access Team [CONS] Routine Reason for Consult: Picc Line Insertion Line Type: PICC PICC line indications: Parental nutrition Time Notified: 09:30 Call Completed: Yes 07/29/19 11:29 Consult to Occupational Therapy [CONS] Routine Comment: Evaluate, develop and implement POC Reason for Consult: mobilization and d.c. planning. Pt will return to rehab Does patient have active BEDREST order?: No Is patient medically & hemodynamically stable?: Yes Patient assessed for mobility or mobilized this visit?: No Consult to Physical Therapy [CONS] Routine Comment: Evaluate, develop and implement POC Reason for Consult: mobilization and d.c. planning. Pt will return to rehab Does patient have active BEDREST order?: No Is patient medically & hemodynamically stable?: Yes Patient assessed for mobility or mobilized this visit?: No 07/31/19 09:59 Consult to Respiratory Therapy [CONS] Stat Reason for Consult: Aggressive pulm toileting; will require assistance of RT and RN to complete IS Time Notified: 10:01 Call Completed: No Labs on day of discharge: Labs from last 24 hours 08/05/19 08/05/19 08/05/19 07:40 04:28 00:50 POC Glucose 80 85 100 H 08/04/19 08/04/19 08/04/19 16:06 11:06 08:12 POC Glucose 135 H 130 H 157 H - Impressions ITS Impressions Small Bowel X-Ray 07/30/19 08:11 IMPRESSION: Dilation of the proximal and distal small bowel without visualization of the terminal ileum or colon after carrying out the small-bowel follow-through for 3-1/2 hours.. No transition point was identified. Findings may be consistent with either a distal small-bowel obstruction or ileus. Recommend follow-up KUB. These results were sent to [employer] communications to be called to a license caregiver a D/ / Nicolas Castañeda MD / Nicolas Castañeda MD Interpreting Provider: Nicolas Castañeda MD X-Ray 07/30/19 19:06 IMPRESSION: Persistent dilation of small bowel loops which contain most of the contrast from earlier study. Small amount of oral contrast is suspected within the right colon. D/ / Marilyn Barragan Cha, MD / Marilyn Barragan Cha, MD Interpreting Provider: Marilyn Barragan Cha, MD X-Ray 07/31/19 09:22 IMPRESSION: Slight interval improvement of the bowel gas pattern in comparison with yesterday's exam, with the bowel gas pattern remaining most consistent with at least a partial small bowel obstruction. There is no evidence of free air. D/ / 07/31/2019 09:28:05 Slava Barker MD / donn Interpreting Provider: Slava Barker MD X-Ray 08/01/19 09:46 IMPRESSION: Limited study because of the high density barium seen scattered throughout the small bowel and colon. Findings most in keeping with adynamic ileus. D/ / Trell Humphrey / Trell Humphrey Interpreting Provider: Trell Humphrey Abdomen X-Ray 08/04/19 09:06 IMPRESSION: Antegrade transit of oral contrast, which is now throughout the colon. No evidence of bowel obstruction. Mildly prominent air-filled loops of small bowel appear similar in caliber, most likely due to a mild small bowel ileus. No significant amount of stool in the colon. D/ / Slava Arita MD / Slava Arita MD Interpreting Provider: Slava Arita MD - Attending Attestation I examined this patient and my medical decision-making was reviewed with the INDUSTRIAL LABORER. I agree with the documented findings, disposition and treatment plan as described to the extent set forth below. Pt recovered satisfactory from post-op ileus. No further n/v. Tolerating regular diet with slightly increased appetite. TPN weaned yesterday. DC to ECF. See DC plan for f/u.
--- NOTE | 2019-08-05 08:30 | Physician Discharge Referral ---
ExtendedCare Referral Info Transfer To: [facility] Provider in Charge: Dr. 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 (9) Atrial fibrillation Priority: Secondary Status: Chronic (10) Confusion Priority: Secondary Status: Resolved Prognosis: Fair Aware of Diagnosis: Patient, Family Aware of Prognosis: Patient - Transfer Medications Prescriptions: Wheat Dextrin [Benefiber] 1 each PO BID 90 Days #60 powd.pack Prescription Printed Polyethylene Glycol 3350 [MiraLAX Powder Bulk 17.9 Oz] 1 scoop PO DAILY PRN #510 gm PRN Reason: Constipation Prescription Printed Home Medications: Acetaminophen [Tylenol] 500 mg PO Q6HR PRN 05/14/18 [History] Pravastatin Sodium [Pravachol] 40 mg PO HS 05/14/18 [History] Rivaroxaban [Xarelto] 20 mg PO DAILY 06/03/18 [History] Ferrous Sulfate [Iron] 325 mg PO DAILY #30 tablet 06/13/18 [Rx] Cilostazol [Pletal] 100 mg PO BID 01/29/19 [History] Cetirizine HCl [Zyrtec] 10 mg PO DAILY 07/15/19 [History] Cyclobenzaprine [Flexeril] 10 mg PO TID 07/15/19 [History] Diltiazem CD (24hr) [Cardizem CD] 240 mg PO DAILY 07/15/19 [History] traZODone [TraZODone] 100 mg PO HS 07/15/19 [History] Aspirin [Lo-Dose Aspirin EC] 81 mg PO DAILY 07/28/19 [History] Metoprolol [Lopressor] 25 mg PO BID 07/28/19 [History] Polyethylene Glycol 3350 [MiraLAX Powder Bulk 17.9 Oz] 1 scoop PO DAILY PRN #510 gm 08/05/19 [Rx] Wheat Dextrin [Benefiber] 1 each PO BID 90 Days #60 powd.pack 08/05/19 [Rx] Allergies/Adverse Reactions: Allergy/AdvReac Type Severity Reaction Status Date / Time amantadine AdvReac Itching Verified 07/28/19 15:25 Phenothiazines AdvReac Itching Verified 07/28/19 15:25 promethazine AdvReac Itching Verified 07/28/19 15:25 - Respiratory Orders Smoking Cessation: Smoking cessation has been advised. For more information, call the [place] Tobacco Quit Line at 5-984-NRXB-NOW. - Ancillary Orders May use pressure relief devices daily prn - Advance Directives Living Will: No Power of Mixer Operator for Health Care: No Code Status: Full Code - Mobility Orders Ambulate - Rehabiliation Orders Rehab Potential: Fair Rehab Orders: Evaluation for Physical Therapy, Evaluation for Occupational Therapy - Treatments Skin tear care topically daily PRN per policy List/Other: Continue rehab as previously recommended. No pushing, pulling, or lifting greater than 20 lbs for 4 more weeks. Your bowel habits will continue to change/improve. Take benefiber twice daily. Take miralax prn (if you did not have a BM the day prior, begin miralax until you are having daily BMs that are not painful and are mashed potatoes cons istency, then decrease to as needed). Follow-up as directed. - Diet Orders Regular (high fiber) House Supplement per Dietary: Ensure or Boost TID CERTIFICATION: I certify that the transfer of the above named patient to an Extended Care Facility is necessary for the continuing treatment of the diagnosis listed. The above information is true and accurate reflection of patient's current condition. Confidential - Redisclosure prohibited without a patient's written consent.
[2019-08-05] MEDS ORDERED: FLU Vac QV 19-20 (6Month+)/PF 0.5 ML SYRINGE IM ONE (10:42)
--- NOTE | 2019-08-05 13:27 | Acute Care Surgery Event Note ---
Date of Encounter: 08/05/19 Time of Encounter: 13:[address] Ventura complete. OK to d/c to [facility] today. SW informed. Pt may d/c when transport is in place.
== END 2019-08-05 14:54 | disposition other institution (70) | DRG 394 ==
LOC: 3ANU
PROVIDERS: ADMIT Surgery; ATTEND Surgery

== ENCOUNTER 2019-08-20 02:02 | Inpatient (IN) ==
[2019-08-20] MEDS: 0.9 % Sodium Chloride 1,000 ML IVC SCH (05:05)
[2019-08-20 07:31] LABS: Hematocrit 32.2 % (35.3-44.9); Hemoglobin 10.2 g/dL (11.5-15.4); Mean Corpuscular HGB Conc 31.7 g/dL (31.6-35.5); Mean Corpuscular Hemoglobin 30.4 pg (28.0-33.3); Mean Corpuscular Volume 95.8 fL (83.0-100.0); Mean Platelet Volume 9.5 fL (9.4-12.4); Platelet Count 417 K/mcL (140-400); Red Blood Count 3.36 M/mcL (3.82-4.97); Red Cell Distribution Width 18.7 % (11.5-14.5)
[2019-08-20 07:38] LABS: INR 1.3; Prothrombin Time 15.1 Seconds (9.4-12.1)
[2019-08-20 07:53] LABS: Alanine Aminotransferase 7 Units/L (7-52); Albumin 2.9 g/dL (3.5-5.7); Albumin/Globulin Ratio 1.4 (1.1-2.2); Alkaline Phosphatase 66 Units/L (34-104); Aspartate Amino Transferase 14 Units/L (13-39); BUN/Creatinine Ratio 10 (6-26); Bilirubin,Total 0.4 mg/dL (0.3-1.0); Blood Urea Nitrogen 6 mg/dL (8-23); Calcium 7.9 mg/dL (8.6-10.3); Carbon Dioxide 23 mEq/L (23-29); Chloride 109 mEq/L (98-107); Globulin 2.1 g/dL (2.4-3.5); Glucose 87 mg/dL (70-105); Magnesium 1.8 mg/dL (1.6-2.6); Osmolality,Calculated 285 (280-300); Phosphorous 3.7 mg/dL (2.7-4.5); Potassium 3.1 mEq/L (3.5-5.1); Sodium 139 mEq/L (136-145); eGFR For African Americans > 60 (> 60); eGFR For Non-African Americans > 60 (> 60)
[2019-08-20] MEDS ORDERED: Naloxone 0.4 MG/ML INJ IVP PRN (08:46)
[2019-08-20] MEDS ORDERED: Loratadine 10 MG TABLET PO PRN (11:40)
[2019-08-20] MEDS: *HR* Rivaroxaban 10 MG TABLET PO SCH (14:49)
[2019-08-20] MEDS ORDERED: *HR* Heparin 5,000 UNIT/ML VIAL SQ SCH (18:00)
[2019-08-20] MEDS ORDERED: Potassium Chloride 40 MEQ, Lidocaine 1% 2 ML in 0.9 % Sodium Chloride 500 ML IVPB ONE (18:34)
[2019-08-20] MEDS ORDERED: traZODone 50 MG TABLET PO PRN (21:00)
[2019-08-21 02:28] LABS: Basophils # 0.1 K/mcL (0.0-0.2); Basophils % 0.6 %; Eosinophils # 0.3 K/mcL (0.0-0.6); Eosinophils % 2.8 %; Hematocrit 30.1 % (35.3-44.9); Hemoglobin 9.5 g/dL (11.5-15.4); Immature Granulocytes % 0.9 % (0-4); Lymphocytes # 1.9 K/mcL (0.6-4.6); Lymphocytes % 20.2 %; Mean Corpuscular HGB Conc 31.6 g/dL (31.6-35.5); Mean Corpuscular Hemoglobin 30.8 pg (28.0-33.3); Mean Corpuscular Volume 97.7 fL (83.0-100.0); Mean Platelet Volume 9.3 fL (9.4-12.4); Monocytes % 10.6 %; Neutrophils # 6.1 K/mcL (1.6-8.9); Platelet Count 403 K/mcL (140-400); Red Blood Count 3.08 M/mcL (3.82-4.97); Red Cell Distribution Width 19.2 % (11.5-14.5); Segmented Neutrophils % 64.9 %; White Blood Count 9.4 K/mcL (4.3-11.1)
[2019-08-21 02:35] LABS: INR 1.6; Prothrombin Time 18.5 Seconds (9.4-12.1)
[2019-08-21 02:43] LABS: BUN/Creatinine Ratio 6 (6-26); Blood Urea Nitrogen 3 mg/dL (8-23); Calcium 7.7 mg/dL (8.6-10.3); Carbon Dioxide 21 mEq/L (23-29); Chloride 109 mEq/L (98-107); Glucose 81 mg/dL (70-105); Magnesium 1.7 mg/dL (1.6-2.6); Osmolality,Calculated 288 (280-300); Potassium 3.8 mEq/L (3.5-5.1); Sodium 141 mEq/L (136-145); eGFR For African Americans > 60 (> 60); eGFR For Non-African Americans > 60 (> 60)
[2019-08-21] MEDS: *HR* Rivaroxaban 10 MG TABLET PO SCH (09:06)
[2019-08-21] MEDS: 0.9 % Sodium Chloride 1,000 ML IVC SCH ×2 (09:07→21:43)
[2019-08-21] MEDS: Diltiazem CD (24hr) 240 MG CAPSULE PO SCH (09:07)
[2019-08-21] MEDS: Aspirin Enteric Coated 81 MG Tablet PO SCH (09:07)
[2019-08-21] MEDS: Ondansetron 4 MG/2 ML VIAL IVP PRN (19:49)
[2019-08-22 04:28] LABS: Hematocrit 34.4 % (35.3-44.9); Hemoglobin 10.7 g/dL (11.5-15.4); Mean Corpuscular HGB Conc 31.1 g/dL (31.6-35.5); Mean Corpuscular Hemoglobin 30.3 pg (28.0-33.3); Mean Corpuscular Volume 97.5 fL (83.0-100.0); Mean Platelet Volume 9.9 fL (9.4-12.4); Platelet Count 475 K/mcL (140-400); Red Blood Count 3.53 M/mcL (3.82-4.97); Red Cell Distribution Width 18.4 % (11.5-14.5)
[2019-08-22] MEDS: Ondansetron 4 MG/2 ML VIAL IVP PRN (04:34)
[2019-08-22 04:42] LABS: BUN/Creatinine Ratio 10 (6-26); Blood Urea Nitrogen 6 mg/dL (8-23); Calcium 8.2 mg/dL (8.6-10.3); Carbon Dioxide 23 mEq/L (23-29); Chloride 108 mEq/L (98-107); Glucose 119 mg/dL (70-105); Osmolality,Calculated 287 (280-300); Potassium 3.5 mEq/L (3.5-5.1); Sodium 139 mEq/L (136-145); eGFR For African Americans > 60 (> 60); eGFR For Non-African Americans > 60 (> 60)
[2019-08-22 04:52] LABS: White Blood Count 14.5 K/mcL (4.3-11.1)
[2019-08-22] MEDS: 0.9 % Sodium Chloride 1,000 ML IVC SCH (08:01)
[2019-08-22] MEDS: Diltiazem CD (24hr) 240 MG CAPSULE PO SCH (08:05)
[2019-08-22] MEDS: Aspirin Enteric Coated 81 MG Tablet PO SCH (08:06)
[2019-08-22] MEDS: *HR* Rivaroxaban 10 MG TABLET PO SCH (08:07)
[2019-08-23] MEDS: 0.9 % Sodium Chloride 1,000 ML IVC SCH ×2 (00:56→04:17)
[2019-08-23 03:03] LABS: Basophils % 0.4 %; Eosinophils # 0.3 K/mcL (0.0-0.6); Eosinophils % 2.3 %; Hematocrit 34.6 % (35.3-44.9); Hemoglobin 10.8 g/dL (11.5-15.4); Immature Granulocytes % 0.6 % (0-4); Lymphocytes # 2.2 K/mcL (0.6-4.6); Lymphocytes % 20.5 %; Mean Corpuscular HGB Conc 31.2 g/dL (31.6-35.5); Mean Corpuscular Hemoglobin 30.6 pg (28.0-33.3); Mean Platelet Volume 9.8 fL (9.4-12.4); Monocytes # 1.2 K/mcL (0.0-1.3); Monocytes % 11.4 %; Neutrophils # 7.1 K/mcL (1.6-8.9); Nucleated Red Blood Cells 0.2 /100 WBC (0); Platelet Count 434 K/mcL (140-400); Red Blood Count 3.53 M/mcL (3.82-4.97); Red Cell Distribution Width 18.6 % (11.5-14.5); Segmented Neutrophils % 64.8 %; White Blood Count 10.9 K/mcL (4.3-11.1)
[2019-08-23 03:24] LABS: BUN/Creatinine Ratio 10 (6-26); Blood Urea Nitrogen 5 mg/dL (8-23); Calcium 7.8 mg/dL (8.6-10.3); Carbon Dioxide 23 mEq/L (23-29); Chloride 108 mEq/L (98-107); Glucose 99 mg/dL (70-105); Magnesium 1.6 mg/dL (1.6-2.6); Osmolality,Calculated 283 (280-300); Potassium 3.2 mEq/L (3.5-5.1); Sodium 138 mEq/L (136-145); eGFR For African Americans > 60 (> 60); eGFR For Non-African Americans > 60 (> 60)
[2019-08-23] MEDS ORDERED: Potassium Chloride Elixir 20 MEQ/15 ML UDC PO ONE (07:20)
[2019-08-23] MEDS: *HR* Rivaroxaban 10 MG TABLET PO SCH (08:45)
[2019-08-23] MEDS: Diltiazem CD (24hr) 240 MG CAPSULE PO SCH (08:46)
[2019-08-23] MEDS: Aspirin Enteric Coated 81 MG Tablet PO SCH (08:46)
[2019-08-23 10:49] VITALS: BP 136/70
[2019-08-23] MEDS ORDERED: Ondansetron ODT 4 MG TAB.RAPDIS SL ONE (13:38)
== END 2019-08-23 14:24 | disposition home or self-care (01) | DRG 389 ==
LOC: 3ANU → SUATTDRO 03:54 → 3ANU 03:57
PROVIDERS: ADMIT Internal Medicine; ATTEND Internal Medicine